=== PATIENT | female | born 1995 | race Caucasian/White ===

== ENCOUNTER → 2018-06-14 | Outpatient (REF) | payer BC ==
[2018-06-14 12:35] LABS: BASO # 0.1 10^3/uL (0.0-0.2); BASO % 0.8 % (0.0-1.0); EOS # 0.3 10^3/uL (0.0-0.50); EOS % 3.4 % (0.0-3.0); HEMOGLOBIN 14.3 g/dl (12.0-15.5); LYMPH # 2.2 10^3/uL (1.5-6.5); LYMPH % 29.2 % (24.0-44.0); MEAN CORPUSCULAR HEMOGLOBIN 30.5 pg (27.0-33.0); MEAN CORPUSCULAR VOLUME 89.6 fl (80.0-96.0); MONO # 0.5 10^3/uL (0.0-0.8); MONO % 5.9 % (0.0-5.0); NEUTROPHILS # 4.6 10^3/uL (1.8-7.7); NEUTROPHILS % 60.3 % (36.0-66.0); PLATELET COUNT, AUTOMATED 159 10^3/uL (150-450); RED BLOOD COUNT 4.69 10^6/uL (4.00-5.40); WHITE BLOOD COUNT 7.7 10^3/uL (4.0-10.0)
[2018-06-14 12:59] LABS: HEMOGLOBIN A1c 4.9 %
[2018-06-14 13:42] LABS: ALBUMIN 3.9 GM/DL (3.2-5.2); ALT/SGPT 72 U/L (12-78); BILIRUBIN,TOTAL 0.5 MG/DL (0.2-1.0); BLOOD UREA NITROGEN 12 MG/DL (7-18); CARBON DIOXIDE LEVEL 26 MEQ/L (21-32); CHLORIDE LEVEL 109 MEQ/L (98-107); CHOLESTEROL LEVEL 146 MG/DL (<200); CHOLESTEROL RISK RATIO 3.173 (<5); CREATININE FOR GFR 0.64 MG/DL (0.55-1.30); GLOMERULAR FILTRATION RATE > 60.0 (>60); GLUCOSE, FASTING 95 MG/DL (70-100); HDL CHOLESTEROL 46 MG/DL (>40); LDL CHOLESTEROL 87 MG/DL (<100); NON-HDL-C 100 MG/DL; POTASSIUM SERUM 4.1 MEQ/L (3.5-5.1); SODIUM LEVEL 141 MEQ/L (136-145); TOTAL 25(OH) VITAMIN D 16.4 NG/ML (30.0-100.0); TOTAL PROTEIN 7.3 GM/DL (6.4-8.2); TRIGLYCERIDES LEVEL 67 MG/DL (<150)
[2018-06-15 14:15] LABS: Lyme Disease IgG/IgM Antibodie <0.91 ISR (0.00-0.90); Lyme Disease IgM Ab Quantitati <0.80 index (0.00-0.79)
== END ==
LOC: M LAB REF 12:10
PROVIDERS: ATTEND Family Medicine
DX: R20.2 Paresthesia of skin (principal); G83.24 Monoplegia of upper limb affecting left nondominant side; F32.1 Major depressive disorder, single episode, moderate

== ENCOUNTER → 2018-07-16 | Outpatient (CLI) | payer MEDICARE, BC ==
--- NOTE | 2018-07-16 09:33 | REP ---
MR Brain without contrast HISTORY: Migraine headache COMPARISON : None Several punctate areas of increased signal intensity on T2-weighted images are present in the subcortical white matter of the frontal lobes. There is no intraparenchymal hemorrhage, infarct, mass or midline shift. The ventricular system is normal in appearance. There is no extra cerebral collection. Mucosal thickening is present in the maxillary sinuses. IMPRESSION: There are several punctate areas of increased signal intensity in the subcortical white matter of the frontal lobes. This is a nonspecific finding, however, can be seen in conditions such as migraine. Electronically Signed by Tommie Jones MD 07/16/2018 09:24 A
== END ==
LOC: M PLARAD 08:27
PROVIDERS: ATTEND Psychiatry & Neurology Neurology
DX: G43.009 Migraine without aura, not intractable, without status migrainosus (principal); R42 Dizziness and giddiness

== ENCOUNTER 2018-08-26 16:58 | Emergency (ER) | payer MEDICARE, MEDICAID ==
[~2018-08-26] VITALS: Ht 157.5 cm; Wt 181.8 kg
[2018-08-26] MEDS ORDERED: ONDANSETRON 4MG/2ML VIAL (J2405) IV ONE (17:30)
[2018-08-26 17:48] LABS: BASO % 0.4 % (0.0-1.0); EOS # 0.3 10^3/uL (0.0-0.50); HEMATOCRIT 38.7 % (36.0-47.0); HEMOGLOBIN 13.1 g/dl (12.0-15.5); LYMPH # 1.8 10^3/uL (1.5-6.5); LYMPH % 21.5 % (24.0-44.0); MEAN CORPUSCULAR HEMOGLOBIN 30.8 pg (27.0-33.0); MEAN CORPUSCULAR HGB CONC 33.9 g/dl (32.0-36.5); MEAN CORPUSCULAR VOLUME 91.1 fl (80.0-96.0); MONO # 0.5 10^3/uL (0.0-0.8); MONO % 5.3 % (0.0-5.0); NEUTROPHILS # 5.9 10^3/uL (1.8-7.7); NEUTROPHILS % 69.1 % (36.0-66.0); PLATELET COUNT, AUTOMATED 130 10^3/uL (150-450); RED BLOOD COUNT 4.25 10^6/uL (4.00-5.40); WHITE BLOOD COUNT 8.6 10^3/uL (4.0-10.0)
[2018-08-26 18:17] LABS: ALBUMIN 3.3 GM/DL (3.2-5.2); ALT/SGPT 46 U/L (12-78); BILIRUBIN,DIRECT 0.1 MG/DL (0.0-0.2); BILIRUBIN,TOTAL 0.4 MG/DL (0.2-1.0); BLOOD UREA NITROGEN 11 MG/DL (7-18); CALCIUM LEVEL 8.5 MG/DL (8.5-10.1); CARBON DIOXIDE LEVEL 27 MEQ/L (21-32); CHLORIDE LEVEL 107 MEQ/L (98-107); CREATININE FOR GFR 0.68 MG/DL (0.55-1.30); GLOMERULAR FILTRATION RATE > 60.0 (>60); GLUCOSE, FASTING 105 MG/DL (70-100); HCG, SERUM QUALITATIVE NEGATIVE (NEGATIVE); LIPASE 84 U/L (73-393); POTASSIUM SERUM 3.8 MEQ/L (3.5-5.1); SODIUM LEVEL 138 MEQ/L (136-145); TOTAL PROTEIN 6.4 GM/DL (6.4-8.2)
[2018-08-26] MEDS ORDERED: ISOVUE-370 76% 100ML VIAL (Q9967) As Ordered ONE (18:36)
--- NOTE | 2018-08-26 20:10 | REPVR ---
EXAM: CT Abdomen and Pelvis With Contrast EXAM DATE/TIME: 08/26/2018 6:45 PM CLINICAL HISTORY: 23 years old, female; Abdominal pain; Localized; Lower; Additional info: Bilat low abd pain TECHNIQUE: Imaging protocol: Axial computed tomography images of the abdomen and pelvis with intravenous contrast. Coronal and sagittal reformatted images were created and reviewed. Radiation optimization: All CT scans at this facility use at least one of these dose optimization techniques: automated exposure control; mA and/or kV adjustment per patient size (includes targeted exams where dose is matched to clinical indication); or iterative reconstruction. Contrast material: ISOVUE 370; Contrast volume: 100 ml; Contrast route: IV; COMPARISON: No relevant prior studies available. FINDINGS: ABDOMEN: Liver: There is diffuse fatty infiltration of the liver. No focal hepatic lesion. Gallbladder and bile ducts: Status post cholecystectomy. Bile ducts are not dilated. Pancreas: The pancreas is normal. Spleen: The spleen measures 16 cm in length which is enlarged. No focal splenic lesion is identified. Adrenals: The adrenal glands are normal. Kidneys and ureters: The kidneys are normal. No hydronephrosis. Stomach and bowel: No evidence of bowel obstruction. No bowel wall thickening. No diverticula. The Appendix: No evidence of appendicitis. PELVIS: Bladder: The bladder is normal with no evidence of calculi. Reproductive: The left ovary is enlarged measuring 7 cm in length. There is an area of ill-defined heterogeneous density.. ABDOMEN and PELVIS: Intraperitoneal space: Normal. No free air. No significant fluid collection. Bones/joints: No acute fracture. No dislocation. Soft tissues: There has been prior ventral hernia repair. There is a lower abdominal midline a recurrent ventral hernia. This contains fat and a fluid collection measuring up to 6 cm in maximal dimension. The a component of this fluid collection extends intraperitoneally alongside the ventral mesh on the right. There is no bowel within the hernia. Vasculature: Normal. No abdominal aortic aneurysm. Lymph nodes: Normal. No enlarged lymph nodes. IMPRESSION: 1. Status post ventral hernia repair with recurrent hernia containing fat and a 6 cm fluid collection. This could be a postoperative seroma. This needs clinical correlation for possibility of infection. 2. The left ovary is enlarged measuring up to 7 cm. There is an area of heterogeneous density. Recommend ultrasound for further evaluation of ovarian lesion. 3. Splenomegaly, 16 cm, of unknown etiology. No focal splenic lesion. Electronically signed by: Subhash Peter On 08/26/2018 20:09:45 PM
--- NOTE | 2018-08-26 21:06 | REPVR ---
EXAM: US Pelvis Complete, Transabdominal EXAM DATE/TIME: 08/26/2018 8:55 PM CLINICAL HISTORY: 23 years old, female; Pelvic pain; Additional info: Bilat low abd pain R/O torsion TECHNIQUE: Imaging protocol: Real-time transabdominal pelvic ultrasound with image documentation. Complete exam. COMPARISON: CT ABD/PEL W/IV CONTRAST ONLY 08/26/2018 6:38 PM FINDINGS: Uterus/cervix: The uterus measures 8.9 x 2.6 x 9 point centimeters. No myometrial mass identified. Endometrium is mildly thickened up to 14 mm. No focal lesions seen. Right adnexa: The right ovary measures 2.3 x 2.0 x 2.1 cm. No abnormality seen. Left adnexa: The left ovary measures 6.2 x 2.9 x 6.2 cm. It contains a complex cyst measuring 4.3 x 4.6 x 4.0 cm. No abnormal vascularity. Free fluid: Small amount of free fluid noted in the pelvic cul-de-sac. Bladder: Normal. Other findings: Examination limited by patient body habitus. IMPRESSION: 1. Complex left ovarian cyst measuring 4.3 x 2.6 x 4.7. Recommend followup in 6 weeks. 2. No evidence of ovarian torsion. 3. Small amount of free fluid in the pelvic cul-de-sac. Electronically signed by: Subhash Peter On 08/26/2018 21:06:06 PM
[2018-08-26 21:41] VITALS: BP 146/85
--- NOTE | 2018-08-30 15:23 | ED PDOC ---
Post-Departure Follow-Up dr baxter faxed formal report of pelvic us for fu Ping Harp MD August 30, 2018 15:23
--- NOTE | 2018-08-30 15:26 | ED PDOC ---
Post-Departure Follow-Up armida tomlinson and [facility] faxed formal report of ct abd/p for fu Ping Harp MD August 30, 2018 15:26
== END 2018-08-26 21:40 | disposition home or self-care (01) ==
LOC: M ED 16:58
DX: N83.292 Other ovarian cyst, left side (principal); K43.9 Ventral hernia without obstruction or gangrene; I10 Essential (primary) hypertension; E66.9 Obesity, unspecified; Z88.0 Allergy status to penicillin; Z88.8 Allergy status to other drugs, medicaments and biological substances; Z91.040 Latex allergy status; F17.210 Nicotine dependence, cigarettes, uncomplicated
CPT/HCPCS: 36415; 74177; 76830; 76856; 80048; 80076; 81001; 83690; 84703; 85025; 93976; 96374; 99284; J2405; Q9967

== ENCOUNTER → 2018-08-31 | Outpatient (REF) | payer MEDICARE, MEDICAID ==
[~2018-08-31] MED LIST: HYDR-3713; MIDOTAB PO; PERC5TAB12 PO; ZOFR4TAB16 PO
[2018-08-31 18:00] LABS: BASO % 0.6 % (0.0-1.0); EOS # 0.3 10^3/uL (0.0-0.50); HEMATOCRIT 40.7 % (36.0-47.0); HEMOGLOBIN 13.4 g/dl (12.0-15.5); LYMPH # 1.7 10^3/uL (1.5-6.5); LYMPH % 24.9 % (24.0-44.0); MEAN CORPUSCULAR HEMOGLOBIN 30.2 pg (27.0-33.0); MEAN CORPUSCULAR HGB CONC 32.9 g/dl (32.0-36.5); MEAN CORPUSCULAR VOLUME 91.7 fl (80.0-96.0); MONO # 0.5 10^3/uL (0.0-0.8); MONO % 6.5 % (0.0-5.0); NEUTROPHILS # 4.4 10^3/uL (1.8-7.7); NEUTROPHILS % 63.4 % (36.0-66.0); PLATELET COUNT, AUTOMATED 126 10^3/uL (150-450); RED BLOOD COUNT 4.44 10^6/uL (4.00-5.40)
[2018-08-31 18:11] LABS: ALBUMIN 3.8 GM/DL (3.2-5.2); ALT/SGPT 45 U/L (12-78); BILIRUBIN,TOTAL 0.4 MG/DL (0.2-1.0); BLOOD UREA NITROGEN 12 MG/DL (7-18); CALCIUM LEVEL 8.7 MG/DL (8.5-10.1); CARBON DIOXIDE LEVEL 26 MEQ/L (21-32); CHLORIDE LEVEL 108 MEQ/L (98-107); CREATININE FOR GFR 0.63 MG/DL (0.55-1.30); GLOMERULAR FILTRATION RATE > 60.0 (>60); GLUCOSE, FASTING 80 MG/DL (70-100); POTASSIUM SERUM 4.2 MEQ/L (3.5-5.1); RHEUMATOID FACTOR QUANT < 10.0 IU/ML (<15.0); SODIUM LEVEL 139 MEQ/L (136-145); TOTAL 25(OH) VITAMIN D 26.2 NG/ML (30.0-100.0); TOTAL PROTEIN 6.6 GM/DL (6.4-8.2)
[2018-08-31 19:14] LABS: ERYTHROCYTE SEDIMENTATION RATE 20 mm/hr (0-20)
[2018-09-02 14:27] LABS: ANTINUCLEAR ANTIBODIES DIRECT Negative (Negative)
== END ==
LOC: M LABNEURO 13:29
PROVIDERS: ATTEND Psychiatry & Neurology Neurology
DX: R51 Headache (principal)

== ENCOUNTER 2018-09-03 11:55 | Emergency (ER) | payer MEDICARE, MEDICAID ==
[~2018-09-03] VITALS: Ht 157.5 cm; Wt 181.3 kg
[2018-09-03] MEDS ORDERED: HYDR-3713 (12:00)
[2018-09-03] MEDS ORDERED: MIDOTAB PO (12:00)
[2018-09-03] MEDS ORDERED: NORCO, ANEXSIA 5/325MG TABLET (HYDROcodone/ACETAMINOPHEN) PO ONE (12:45)
[2018-09-03 13:17] LABS: BASO # 0.1 10^3/uL (0.0-0.2); BASO % 0.6 % (0.0-1.0); EOS # 0.3 10^3/uL (0.0-0.50); EOS % 4.3 % (0.0-3.0); HEMATOCRIT 44.2 % (36.0-47.0); HEMOGLOBIN 14.8 g/dl (12.0-15.5); LYMPH # 2.3 10^3/uL (1.5-6.5); LYMPH % 30.3 % (24.0-44.0); MEAN CORPUSCULAR HEMOGLOBIN 30.7 pg (27.0-33.0); MEAN CORPUSCULAR HGB CONC 33.5 g/dl (32.0-36.5); MEAN CORPUSCULAR VOLUME 91.7 fl (80.0-96.0); MONO # 0.5 10^3/uL (0.0-0.8); MONO % 6.3 % (0.0-5.0); NEUTROPHILS # 4.5 10^3/uL (1.8-7.7); PLATELET COUNT, AUTOMATED 152 10^3/uL (150-450); RED BLOOD COUNT 4.82 10^6/uL (4.00-5.40); WHITE BLOOD COUNT 7.7 10^3/uL (4.0-10.0)
[2018-09-03] MEDS ORDERED: PERC5TAB12 PO (14:00)
[2018-09-03 14:09] VITALS: BP 135/85
--- NOTE | 2018-09-03 14:53 | REP ---
REASON: Left sided pain, rule out torsion. COMPARISON EXAM: Obtained 08/26/2018 which showed a 4.7 cm sized complex left ovarian cyst and for a 6 week followup was recommended. Transvesical and transvaginal imaging was obtained. The uterus is unchanged in size, shape, and echo pattern. The endometrial echo complex is unchanged. The right ovary measures 3.6 x 1.7 x 2.3 cm and is within normal limits. Left ovary measures 3.0 x 2.5 x 3.0 cm and is within normal limits. The complex cystic left ovarian mass seen on the prior examination has resolved. The right ovarian RI is 0.54 and the left is 0.44. Urinary bladder measures 2 x 2 x 5 cm. IMPRESSION: 1. There is no evidence of torsion. 2. Complex cystic structures seen previously left adnexa has resolved. Electronically Signed by Marty Oneill DO 09/03/2018 03:04 P
== END 2018-09-03 14:16 | disposition home or self-care (01) ==
LOC: M ED 11:55
DX: N83.202 Unspecified ovarian cyst, left side (principal); Z98.51 Tubal ligation status; F17.210 Nicotine dependence, cigarettes, uncomplicated; Z88.6 Allergy status to analgesic agent; Z88.1 Allergy status to other antibiotic agents; Z91.040 Latex allergy status

== ENCOUNTER 2018-09-06 21:37 | Emergency (ER) | payer MEDICARE, MEDICAID ==
[~2018-09-06] VITALS: Ht 157.5 cm; Wt 183.6 kg
[~2018-09-06 21:37] MED LIST changes: -ZOFR4TAB16 PO
[2018-09-06] MEDS ORDERED: ZOFR4TAB16 PO (21:44)
[2018-09-06 22:22] LABS: BASO # 0.1 10^3/uL (0.0-0.2); BASO % 0.5 % (0.0-1.0); EOS # 0.3 10^3/uL (0.0-0.50); EOS % 3.3 % (0.0-3.0); HEMATOCRIT 41.8 % (36.0-47.0); HEMOGLOBIN 14.1 g/dl (12.0-15.5); LYMPH # 2.5 10^3/uL (1.5-6.5); LYMPH % 27.5 % (24.0-44.0); MEAN CORPUSCULAR HEMOGLOBIN 30.6 pg (27.0-33.0); MEAN CORPUSCULAR HGB CONC 33.7 g/dl (32.0-36.5); MEAN CORPUSCULAR VOLUME 90.7 fl (80.0-96.0); MONO # 0.5 10^3/uL (0.0-0.8); MONO % 5.6 % (0.0-5.0); NEUTROPHILS # 5.7 10^3/uL (1.8-7.7); NEUTROPHILS % 62.7 % (36.0-66.0); PLATELET COUNT, AUTOMATED 156 10^3/uL (150-450); RED BLOOD COUNT 4.61 10^6/uL (4.00-5.40); WHITE BLOOD COUNT 9.2 10^3/uL (4.0-10.0)
[2018-09-06 22:39] LABS: HCG, SERUM QUALITATIVE NEGATIVE (NEGATIVE)
[2018-09-06 22:47] LABS: ALBUMIN 3.7 GM/DL (3.2-5.2); ALT/SGPT 46 U/L (12-78); BILIRUBIN,DIRECT < 0.1 MG/DL (0.0-0.2); BILIRUBIN,TOTAL 0.3 MG/DL (0.2-1.0); BLOOD UREA NITROGEN 15 MG/DL (7-18); CALCIUM LEVEL 8.8 MG/DL (8.5-10.1); CARBON DIOXIDE LEVEL 28 MEQ/L (21-32); CHLORIDE LEVEL 108 MEQ/L (98-107); CREATININE FOR GFR 0.82 MG/DL (0.55-1.30); GLOMERULAR FILTRATION RATE > 60.0 (>60); GLUCOSE, FASTING 100 MG/DL (70-100); LIPASE 88 U/L (73-393); POTASSIUM SERUM 4.1 MEQ/L (3.5-5.1); SODIUM LEVEL 140 MEQ/L (136-145); TOTAL PROTEIN 6.9 GM/DL (6.4-8.2)
[2018-09-06] MEDS ORDERED: ISOVUE-370 76% 100ML VIAL (Q9967) As Ordered ONE (23:12)
[2018-09-06] MEDS ORDERED: NS 500 ML IV ONE (23:15)
[2018-09-06] MEDS ORDERED: MORPHINE 4 MG/ML 1ML VIAL/SYRINGE (J2270) IV ONE (23:15)
--- NOTE | 2018-09-07 00:08 | REPVR ---
EXAM: CT Abdomen and Pelvis With Contrast EXAM DATE/TIME: 09/06/2018 11:05 PM CLINICAL HISTORY: 23 years old, female; Abdominal pain; Localized; Left; Additional info: L sided pain TECHNIQUE: Imaging protocol: Axial computed tomography images of the abdomen and pelvis with intravenous contrast. Coronal and sagittal reformatted images were created and reviewed. Radiation optimization: All CT scans at this facility use at least one of these dose optimization techniques: automated exposure control; mA and/or kV adjustment per patient size (includes targeted exams where dose is matched to clinical indication); or iterative reconstruction. Contrast material: ISO; Contrast volume: 100 ml; Contrast route: AC; COMPARISON: CT ABD/PEL W/IV CONTRAST ONLY 08/26/2018 6:38 PM FINDINGS: ABDOMEN: Liver: There is a diffuse decrease in hepatic parenchymal density, consistent with fatty infiltration. Gallbladder and bile ducts: There has been a cholecystectomy. Pancreas: Normal. No ductal dilation. Spleen: There is mild splenomegaly with a maximum span of 16 centimeters. No focal abnormalities demonstrated. Adrenals: Normal. No mass. Kidneys and ureters: Normal. No hydronephrosis. Stomach and bowel: Normal. No obstruction. No mucosal thickening. Appendix: No evidence of appendicitis. PELVIS: Bladder: Unremarkable as visualized. Reproductive: Unremarkable as visualized. ABDOMEN and PELVIS: Intraperitoneal space: Normal. No free air. No significant fluid collection. Bones/joints: No acute fracture. No dislocation. Soft tissues: Umbilical hernia status post ventral abdominal wall hernia repair. Vasculature: Normal. No abdominal aortic aneurysm. Lymph nodes: Normal. No enlarged lymph nodes. IMPRESSION: 1. There is a diffuse decrease in hepatic parenchymal density, consistent with fatty infiltration. 2. There has been a cholecystectomy. 3. There is mild splenomegaly with a maximum span of 16 centimeters. No focal abnormalities demonstrated. 4. Umbilical hernia status post ventral abdominal wall hernia repair. Electronically signed by: Jerson Beal On 09/07/2018 00:07:53 AM
[2018-09-07 01:09] VITALS: BP 118/59
--- NOTE | 2018-09-07 21:06 | ED PDOC ---
Post-Departure Follow-Up dr tony baxter faxed formal report of ct abd/p for fu Ping Harp MD September 07, 2018 21:06
== END 2018-09-07 01:24 | disposition home or self-care (01) ==
LOC: M ED 21:37
DX: R10.32 Left lower quadrant pain (principal); K76.0 Fatty (change of) liver, not elsewhere classified; R16.1 Splenomegaly, not elsewhere classified; K42.9 Umbilical hernia without obstruction or gangrene; Z87.42 Personal history of other diseases of the female genital tract; E66.01 Morbid (severe) obesity due to excess calories; Z68.45 Body mass index [BMI] 70 or greater, adult; K59.00 Constipation, unspecified; F17.200 Nicotine dependence, unspecified, uncomplicated; Z88.6 Allergy status to analgesic agent; Z88.1 Allergy status to other antibiotic agents; Z91.040 Latex allergy status; Z79.899 Other long term (current) drug therapy
CPT/HCPCS: 74177; 80048; 80076; 81001; 83690; 84703; 85025; 96361; 96374; 99284; J2270; Q9967

== ENCOUNTER → 2018-09-16 | Outpatient (CLI) | payer MEDICARE, MEDICAID ==
[~2018-09-16] MED LIST changes: +ZOFR4TAB16 PO
== END ==
LOC: M SMT 14:24
PROVIDERS: ATTEND Obstetrics & Gynecology
DX: Z13.79 Encounter for other screening for genetic and chromosomal anomalies (principal)

== ENCOUNTER 2018-11-19 00:54 | Emergency (ER) | payer MEDICARE, MEDICAID ==
[~2018-11-19] VITALS: Ht 157.5 cm; Wt 177.3 kg
[2018-11-19] MEDS ORDERED: ESCI10TA2 (01:09)
[2018-11-19] MEDS ORDERED: TOBR0.3S OS (01:09)
[2018-11-19] MEDS ORDERED: ARIP1TAB6 (01:09)
--- NOTE | 2018-11-19 06:30 | ECGEPIP ---
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
[2018-11-19 06:33] LABS: BASO % 0.6 % (0.0-1.0); EOS # 0.2 10^3/uL (0.0-0.50); EOS % 3.4 % (0.0-3.0); HEMATOCRIT 40.7 % (36.0-47.0); HEMOGLOBIN 13.6 g/dl (12.0-15.5); MEAN CORPUSCULAR HEMOGLOBIN 30.8 pg (27.0-33.0); MEAN CORPUSCULAR HGB CONC 33.4 g/dl (32.0-36.5); MEAN CORPUSCULAR VOLUME 92.1 fl (80.0-96.0); MONO # 0.5 10^3/uL (0.0-0.8); NEUTROPHILS % 59.1 % (36.0-66.0); PLATELET COUNT, AUTOMATED 136 10^3/uL (150-450); RED BLOOD COUNT 4.42 10^6/uL (4.00-5.40); WHITE BLOOD COUNT 6.8 10^3/uL (4.0-10.0)
[2018-11-19] MEDS ORDERED: ACETAMINOPHEN 325 MG TAB PO ONE (06:45)
[2018-11-19 06:55] LABS: ALBUMIN 3.4 GM/DL (3.2-5.2); ALT/SGPT 55 U/L (12-78); BILIRUBIN,DIRECT < 0.1 MG/DL (0.0-0.2); BILIRUBIN,TOTAL 0.2 MG/DL (0.2-1.0); BLOOD UREA NITROGEN 10 MG/DL (7-18); CALCIUM LEVEL 8.8 MG/DL (8.5-10.1); CARBON DIOXIDE LEVEL 27 MEQ/L (21-32); CHLORIDE LEVEL 110 MEQ/L (98-107); CK-MB VALUE MASS < 1.0 NG/ML (<3.6); CPK CREATINE PHOSPHOKINASE 103 U/L (26-192); CREATININE FOR GFR 0.76 MG/DL (0.55-1.30); GLOMERULAR FILTRATION RATE > 60.0 (>60); GLUCOSE, FASTING 119 MG/DL (70-100); MB/CK RELATIVE INDEX 0.97 (< OR =4); POTASSIUM SERUM 4.1 MEQ/L (3.5-5.1); SODIUM LEVEL 143 MEQ/L (136-145); TOTAL PROTEIN 6.6 GM/DL (6.4-8.2); TROPONIN I < 0.02 NG/ML (< 0.10)
[2018-11-19 09:31] VITALS: BP 152/71
--- NOTE | 2018-11-19 09:53 | REP ---
PA and lateral chest: There are no comparisons. The lung figueroa are clear. The cardiac size is normal. The cirilo, mediastinum, and skeletal structures are unremarkable. Impression: Negative PA and lateral chest. Electronically Signed by Chirag Downs MD 11/19/2018 09:44 A
== END 2018-11-19 10:06 | disposition home or self-care (01) ==
LOC: M ED 00:54
DX: R52 Pain, unspecified (principal); R53.83 Other fatigue; Z79.899 Other long term (current) drug therapy; Z88.0 Allergy status to penicillin; Z88.6 Allergy status to analgesic agent; Z91.040 Latex allergy status

== ENCOUNTER → 2018-12-01 | Outpatient (CLI) | payer MEDICARE, MEDICAID ==
[~2018-12-01] MED LIST changes: +ARIP1TAB6; +ESCI10TA2; +TOBR0.3S OS
[2018-12-01 10:06] LABS: C REACTIVE PROTEIN QUANTITATIV 0.73 MG/DL (0.00-0.30); COMPLEMENT C3 159 MG/DL (90-180); RHEUMATOID FACTOR QUANT < 10.0 IU/ML (<15.0); URIC ACID 4.6 MG/DL (2.6-6.0)
[2018-12-01 10:51] LABS: MONO SCRN NEGATIVE (NEGATIVE)
[2018-12-07 00:06] LABS: ANTI DS-DNA AB <1:10 titer (.); ANTINUCLEAR ANTIBODIES DIRECT Negative (Negative); COMPLEMENT TOTAL (CH50) > 60 U/mL (42-999999); CYCLIC CITRULLINATED PEPTIDE 3 units (0-19); EBV AB TO NUCLEAR ANTIGEN 81.1 U/mL (0.0-17.9); EBV VIRAL CAPSID AG IgG >600.0 U/mL (0.0-17.9); EBV VIRAL CAPSID AG IgM <36.0 U/mL (0.0-35.9); RNP ANTIBODIES <0.2 AI (0.0-0.9); SJOGREN'S ANTI SS-A <0.2 AI (0.0-0.9); SJOGREN'S ANTI SS-B <0.2 AI (0.0-0.9); SMITH ANTIBODIES <0.2 AI (0.0-0.9)
== END ==
LOC: M LAB 08:55
PROVIDERS: ATTEND Family Medicine
DX: R53.81 Other malaise (principal); M25.50 Pain in unspecified joint

== ENCOUNTER → 2018-12-24 | Outpatient (CLI) | payer MEDICARE, MEDICAID ==
--- NOTE | 2018-12-30 07:55 | REP ---
MR angiography the brain without contrast: History: Dizziness and giddiness. Technique: 3-D [id number] MR angiography of the brain is acquired in the usual fashion and maximal intensity projection images were generated in rotational format about the vertical and horizontal axes. In addition, source axial T1-weighted images are viewed in cine mode. MR angiographic findings: The distal vertebral arteries are patent bilaterally, left dominant. Basilar artery is a little tortuous but widely patent. The posterior cerebral and superior cerebellar vessels are normal and symmetric. Right posterior cerebral takes a persistent origin which is a normal variant. The distal internal carotid arteries are unremarkable. Anterior and middle cerebral arteries appear intact. There is no visible torrez aneurysm or arteriovenous malformation. Impression: Unremarkable MR angiography the brain. Electronically Signed by To Rascon MD 12/30/2018 07:47 A
== END ==
LOC: M PLARAD 08:32
PROVIDERS: ATTEND Physician Assistant Medical
DX: R42 Dizziness and giddiness (principal)

== ENCOUNTER 2018-12-28 22:05 | Emergency (ER) | payer MEDICARE, MEDICAID ==
[~2018-12-28] VITALS: Ht 157.5 cm; Wt 181.2 kg
[2018-12-28 23:12] LABS: BASO % 0.5 % (0.0-1.0); EOS # 0.2 10^3/uL (0.0-0.5); EOS % 2.1 % (0.0-3.0); HEMATOCRIT 37.7 % (36.0-47.0); HEMOGLOBIN 12.9 g/dl (12.0-15.5); LYMPH % 26.9 % (24.0-44.0); MEAN CORPUSCULAR HEMOGLOBIN 30.1 pg (27.0-33.0); MEAN CORPUSCULAR HGB CONC 34.2 g/dl (32.0-36.5); MEAN CORPUSCULAR VOLUME 87.9 fl (80.0-96.0); MONO # 0.4 10^3/uL (0.0-0.8); MONO % 5.9 % (0.0-5.0); NEUTROPHILS # 4.8 10^3/uL (1.5-8.5); NEUTROPHILS % 64.1 % (36.0-66.0); PLATELET COUNT, AUTOMATED 132 10^3/uL (150-450); RED BLOOD COUNT 4.29 10^6/uL (4.00-5.40); WHITE BLOOD COUNT 7.5 10^3/uL (4.0-10.0)
[2018-12-28 23:51] LABS: ALBUMIN 3.3 GM/DL (3.2-5.2); ALT/SGPT 48 U/L (12-78); BILIRUBIN,DIRECT 0.1 MG/DL (0.0-0.2); BILIRUBIN,TOTAL 0.4 MG/DL (0.2-1.0); BLOOD UREA NITROGEN 15 MG/DL (7-18); CALCIUM LEVEL 8.9 MG/DL (8.5-10.1); CARBON DIOXIDE LEVEL 26 MEQ/L (21-32); CHLORIDE LEVEL 109 MEQ/L (98-107); CK-MB VALUE MASS 1.6 NG/ML (<3.6); CPK CREATINE PHOSPHOKINASE 136 U/L (26-192); CREATININE FOR GFR 0.71 MG/DL (0.55-1.30); GLOMERULAR FILTRATION RATE > 60.0 (>60); GLUCOSE, FASTING 92 MG/DL (70-100); LIPASE 84 U/L (73-393); MB/CK RELATIVE INDEX 1.18 (< OR =4); POTASSIUM SERUM 3.8 MEQ/L (3.5-5.1); SODIUM LEVEL 141 MEQ/L (136-145); TOTAL PROTEIN 6.2 GM/DL (6.4-8.2); TROPONIN I < 0.02 NG/ML (< 0.10)
[2018-12-29] MEDS ORDERED: NS 1,000 ML IV ONE
[2018-12-29 00:06] LABS: HCG, SERUM QUALITATIVE NEGATIVE (NEGATIVE)
[2018-12-29 01:54] VITALS: BP 134/76
--- NOTE | 2018-12-29 17:10 | ECGEPIP ---
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
== END 2018-12-29 01:56 | disposition home or self-care (01) ==
LOC: M ED 22:05
DX: R07.9 Chest pain, unspecified (principal); R20.0 Anesthesia of skin; M79.7 Fibromyalgia; F41.1 Generalized anxiety disorder; E66.8 Other obesity; Z79.899 Other long term (current) drug therapy; Z88.0 Allergy status to penicillin; Z88.8 Allergy status to other drugs, medicaments and biological substances; Z91.040 Latex allergy status; Z87.891 Personal history of nicotine dependence

== ENCOUNTER → 2019-05-20 | Outpatient (CLI) | payer MEDICARE, MEDICAID ==
--- NOTE | 2019-05-24 17:37 | SLEEPCENT ---
DATE OF PROCEDURE: 05/20/2019 ORDERED BY: MADISON Dixon Nocturnal polysomnography was performed for the titration of pressure therapy in this patient with obstructive sleep apnea syndrome, apnea-hypopnea index 104.2. For testing a RespirNERIWear full face mask of small size was used, 4 cm of water pressure were applied to the circuit and the lights were extinguished. 7 hours and 36 minutes of data were reviewed. There were 423.5 minutes of sleep identified. Sleep latency was short at 2 minutes. Rapid eye movement (REM) latency was delayed at 177 minutes. Sleep architecture was good with evidence of REM rebound. Overall sleep efficiency was 94.6%. The patient's electrocardiogram showed a sinus rhythm with an average heart rate of 56 beats per minute. EEG showed normal waveforms for awake and sleep. Respiratory events were fully palliated with continuous positive airway pressure (CPAP) at a pressure of +8 and remaining measures of sleep physiology were normal. IMPRESSION: Obstructive sleep apnea syndrome (G47.33). RECOMMENDATIONS: Nightly use of pressure therapy 8 cm of water.
== END ==
LOC: M SLEEP 19:22
PROVIDERS: ATTEND Nurse Practitioner Family
DX: G47.33 Obstructive sleep apnea (adult) (pediatric) (principal)

== ENCOUNTER 2019-05-29 13:40 | Emergency (ER) | payer MEDICARE, MEDICAID ==
[~2019-05-29] VITALS: Ht 154.9 cm; Wt 164.8 kg
[2019-05-29] MEDS ORDERED: PROMETHAZINE INJ 25 MG/ML VIAL (J2550) IV ONE (14:15)
[2019-05-29] MEDS ORDERED: NS 1,000 ML IV ONE ×2 (14:15)
[2019-05-29] MEDS ORDERED: ONDANSETRON 4MG/2ML VIAL (J2405) IV ONE (16:15)
[2019-05-29 16:54] VITALS: BP 129/74
== END 2019-05-29 17:04 | disposition home or self-care (01) ==
LOC: M ED 13:40
DX: R11.2 Nausea with vomiting, unspecified (principal); R19.7 Diarrhea, unspecified; F32.9 Major depressive disorder, single episode, unspecified; F41.9 Anxiety disorder, unspecified; Z88.1 Allergy status to other antibiotic agents; Z88.8 Allergy status to other drugs, medicaments and biological substances; Z91.040 Latex allergy status
CPT/HCPCS: 96360; 96374; 96375; 99284; J2405

== ENCOUNTER → 2019-06-14 | Outpatient (REF) | payer MEDICARE, MEDICAID ==
[2019-06-14 13:12] LABS: INFLUENZA A AMPLIFICATION NEGATIVE (NEGATIVE); INFLUENZA B AMPLIFICATION NEGATIVE (NEGATIVE)
== END ==
LOC: M LAB REF 12:08
PROVIDERS: ATTEND Physician Assistant
DX: J11.1 Influenza due to unidentified influenza virus with other respiratory manifestations (principal)

== ENCOUNTER 2019-08-27 09:03 | Emergency (ER) | payer MEDICARE, MEDICAID ==
[~2019-08-27] VITALS: Ht 154.9 cm; Wt 170.1 kg
[2019-08-27 09:48] LABS: BASO % 0.5 % (0.0-1.0); EOS # 0.1 10^3/uL (0.0-0.5); EOS % 1.7 % (0.0-3.0); HEMATOCRIT 39.5 % (36.0-47.0); HEMOGLOBIN 13.4 g/dl (12.0-15.5); LYMPH # 2.1 10^3/uL (1.5-5.0); LYMPH % 25.3 % (24.0-44.0); MEAN CORPUSCULAR HEMOGLOBIN 30.2 pg (27.0-33.0); MEAN CORPUSCULAR HGB CONC 33.9 g/dl (32.0-36.5); MONO # 0.5 10^3/uL (0.0-0.8); MONO % 5.7 % (0.0-5.0); NEUTROPHILS # 5.6 10^3/uL (1.5-8.5); NEUTROPHILS % 66.2 % (36.0-66.0); PLATELET COUNT, AUTOMATED 155 10^3/uL (150-450); RED BLOOD COUNT 4.44 10^6/uL (4.00-5.40); WHITE BLOOD COUNT 8.4 10^3/uL (4.0-10.0)
[2019-08-27] MEDS ORDERED: ACETAMINOPHEN 500 MG TAB PO ONE (10:00)
[2019-08-27] MEDS ORDERED: ONDANSETRON 4MG/2ML VIAL IV ONE (10:00)
[2019-08-27] MEDS ORDERED: MORPHINE 4 MG/ML 1ML VIAL/SYRINGE (J2270) IV ONE ×2 (10:15→13:00)
[2019-08-27] MEDS ORDERED: ISOVUE-370 76% 100ML VIAL As Ordered ONE (10:20)
[2019-08-27 10:21] LABS: ALBUMIN 3.7 GM/DL (3.2-5.2); BILIRUBIN,DIRECT 0.2 MG/DL (0.0-0.2); BILIRUBIN,TOTAL 0.5 MG/DL (0.2-1.0); TOTAL PROTEIN 6.7 GM/DL (6.4-8.2)
--- NOTE | 2019-08-27 11:03 | REP ---
Clinical: Periumbilical pain. Possible incarcerated hernia. Technique: Axial contrast enhanced images from the lung bases to the pubic symphysis using 100 ml Isovue 370 intravenous contrast material with coronal and sagittal re-formations. Comparison: 09/06/2018. Findings: Lung bases are clear. Visualized heart and pericardium normal. Mild hepatosplenomegaly and fatty infiltration to the liver is suggested without focal hepatic or splenic lesion. Pancreas, bilateral adrenal glands and kidneys are normal. Evidence of prior cholecystectomy. The enteric system is without obstruction or acute inflammatory process. Scattered colonic diverticula noted without acute diverticulitis. There is evidence for prior ventral hernia repair. There appears to be a small/moderate periumbilical hernia containing fat and fluid which measures approximately 4.5 cm diameter (images 114 - 141). Pelvis demonstrates collapsed bladder and normal uterus / adnexa. No pelvic fluid or ascites. No free air. No adenopathy. Abdominal aorta and vasculature without aneurysm or dissection. Musculoskeletal structures without acute osseous abnormality. Impression: 1. A 4.5 cm periumbilical hernia containing fat, fluid and mild stranding is again identified and essentially unchanged when compared to 09/06/2018. 2. Evidence for prior ventral hernia repair. 3. Mild hepatosplenomegaly and fatty infiltration to the liver is suggested without focal hepatic or splenic lesion. Electronically Signed by Lester Anderson MD 08/27/2019 10:55 A
[2019-08-27 15:40] VITALS: BP 147/67
== END 2019-08-27 15:43 | disposition short-term general hospital (02) ==
LOC: M ED 09:03
DX: K42.0 Umbilical hernia with obstruction, without gangrene (principal); Z91.040 Latex allergy status; Z88.1 Allergy status to other antibiotic agents; Z88.8 Allergy status to other drugs, medicaments and biological substances; Z87.891 Personal history of nicotine dependence
CPT/HCPCS: 74177; 80047; 80076; 81001; 83690; 84702; 85025; 96374; 96375; 96376; 99284; J2270; J2405; Q9967

== ENCOUNTER 2019-10-13 22:22 | Emergency (ER) | payer MEDICARE, MEDICAID ==
[~2019-10-13] VITALS: Ht 154.9 cm; Wt 170.8 kg
[2019-10-13 22:23] VITALS: BP 176/96
[2019-10-13] MEDS ORDERED: CYCL-707 PO (22:29)
[2019-10-13] MEDS ORDERED: CELE1CAP7 PO (22:29)
[2019-10-14] MEDS ORDERED: methocarbamoL 750 MG TAB PO ONE (00:30)
[2019-10-14] MEDS ORDERED: traMADol 50 MG TAB PO ONE (00:30)
--- NOTE | 2019-10-14 00:51 | REPVR ---
PROCEDURE INFORMATION: Exam: US Duplex Right Lower Extremity Veins, Limited Exam date and time: 10/14/2019 12:48 AM Age: 24 years old Clinical indication: Pain; Leg, lower; Right; Additional info: Tender, PT states feels swollen TECHNIQUE: Imaging protocol: Real-time Duplex ultrasound of the Right Lower Extremity with 2-D ricks scale, color Doppler flow and spectral waveform analysis with image documentation. Limited exam was focused on the right lower extremity veins. COMPARISON: No relevant prior studies available. FINDINGS: Right deep veins: Unremarkable. The common femoral, femoral, proximal profunda femoral and popliteal veins are patent without thrombus. Normal Doppler waveforms. Normal compressibility and/or augmentation response. Right superficial veins: Unremarkable. Saphenofemoral junction is patent without thrombus. Soft tissues: Unremarkable. IMPRESSION: No evidence of deep vein thrombosis. Electronically signed by: Darlene Hui On 10/14/2019 00:51:14 AM
[2019-10-14 01:30] LABS: BASO % 0.5 % (0.0-1.0); EOS # 0.2 10^3/uL (0.0-0.5); EOS % 2.8 % (0.0-3.0); HEMATOCRIT 38.3 % (36.0-47.0); HEMOGLOBIN 12.8 g/dl (12.0-15.5); LYMPH # 2.4 10^3/uL (1.5-5.0); LYMPH % 36.5 % (24.0-44.0); MEAN CORPUSCULAR HEMOGLOBIN 30.1 pg (27.0-33.0); MEAN CORPUSCULAR HGB CONC 33.4 g/dl (32.0-36.5); MEAN CORPUSCULAR VOLUME 90.1 fl (80.0-96.0); MONO # 0.5 10^3/uL (0.0-0.8); MONO % 7.6 % (0.0-5.0); NEUTROPHILS # 3.4 10^3/uL (1.5-8.5); NEUTROPHILS % 52.1 % (36.0-66.0); PLATELET COUNT, AUTOMATED 150 10^3/uL (150-450); RED BLOOD COUNT 4.25 10^6/uL (4.00-5.40); WHITE BLOOD COUNT 6.5 10^3/uL (4.0-10.0)
[2019-10-14 01:51] LABS: BLOOD UREA NITROGEN 11 MG/DL (7-18); CALCIUM LEVEL 8.3 MG/DL (8.5-10.1); CARBON DIOXIDE LEVEL 25 MEQ/L (21-32); CHLORIDE LEVEL 111 MEQ/L (98-107); CPK CREATINE PHOSPHOKINASE 182 U/L (26-192); CREATININE FOR GFR 0.62 MG/DL (0.55-1.30); GLOMERULAR FILTRATION RATE > 60.0 (>60); GLUCOSE, FASTING 104 MG/DL (70-100); POTASSIUM SERUM 3.8 MEQ/L (3.5-5.1); SODIUM LEVEL 141 MEQ/L (136-145)
[2019-10-14] MEDS ORDERED: TRAM50TA2 PO (02:08)
[2019-10-14] MEDS ORDERED: ROBA750T4 PO (02:08)
== END 2019-10-14 02:37 | disposition home or self-care (01) ==
LOC: M ED 22:22
DX: M79.7 Fibromyalgia (principal); I83.91 Asymptomatic varicose veins of right lower extremity; I10 Essential (primary) hypertension; Z88.0 Allergy status to penicillin; Z88.8 Allergy status to other drugs, medicaments and biological substances; Z91.040 Latex allergy status

== ENCOUNTER → 2019-10-19 | Outpatient (REF) | payer MEDICARE, MEDICAID ==
[~2019-10-19] MED LIST changes: +CELE1CAP7 PO; +CYCL-707 PO; +ROBA750T4 PO; +TRAM50TA2 PO
[2019-10-19 19:09] LABS: APPEARANCE, URINE CLOUDY (CLEAR); BACTERIA, URINE AUTO NEGATIVE (NEGATIVE); BILIRUBIN, URINE AUTO NEGATIVE (NEGATIVE); BLOOD, URINE BLOOD NEGATIVE (NEGATIVE); COLOR, URINE YELLOW (YELLOW); GLUCOSE, URINE (UA) AUTO NEGATIVE (NEGATIVE); KETONE, URINE AUTO NEGATIVE (NEGATIVE); LEUKOCYTE ESTERASE, URINE AUTO 1+ (NEGATIVE); NITRITE, URINE AUTO NEGATIVE (NEGATIVE); PROTEIN, URINE AUTO 1+ mg/dL (NEGATIVE); RBC, URINE AUTO 2 /HPF (0-3); SQUAMOUS EPITHELIAL CELL UR AU 9 /HPF (0-6); UROBILINOGEN, URINE AUTO 0.2 mg/dL (0.0-2.0); WBC, URINE AUTO 9 /HPF (0-3)
== END ==
LOC: M LAB REF 17:03
PROVIDERS: ATTEND Nurse Practitioner Family
DX: N39.0 Urinary tract infection, site not specified (principal); R30.0 Dysuria

== ENCOUNTER → 2019-10-28 | Outpatient (CLI) | payer MEDICARE, MEDICAID ==
[2019-10-28 10:33] LABS: BASO % 0.5 % (0.0-1.0); EOS # 0.2 10^3/uL (0.0-0.5); EOS % 2.4 % (0.0-3.0); HEMATOCRIT 41.2 % (36.0-47.0); HEMOGLOBIN 13.9 g/dl (12.0-15.5); LYMPH # 2.1 10^3/uL (1.5-5.0); LYMPH % 32.7 % (24.0-44.0); MEAN CORPUSCULAR HEMOGLOBIN 30.2 pg (27.0-33.0); MEAN CORPUSCULAR HGB CONC 33.7 g/dl (32.0-36.5); MEAN CORPUSCULAR VOLUME 89.4 fl (80.0-96.0); MONO # 0.4 10^3/uL (0.0-0.8); MONO % 6.2 % (0.0-5.0); NEUTROPHILS # 3.7 10^3/uL (1.5-8.5); NEUTROPHILS % 57.9 % (36.0-66.0); PLATELET COUNT, AUTOMATED 160 10^3/uL (150-450); RED BLOOD COUNT 4.61 10^6/uL (4.00-5.40); WHITE BLOOD COUNT 6.3 10^3/uL (4.0-10.0)
[2019-10-28 10:35] LABS: APPEARANCE, URINE HAZY (CLEAR); BACTERIA, URINE AUTO NEGATIVE (NEGATIVE); BILIRUBIN, URINE AUTO NEGATIVE (NEGATIVE); BLOOD, URINE BLOOD NEGATIVE (NEGATIVE); COLOR, URINE YELLOW (YELLOW); GLUCOSE, URINE (UA) AUTO NEGATIVE (NEGATIVE); KETONE, URINE AUTO NEGATIVE (NEGATIVE); LEUKOCYTE ESTERASE, URINE AUTO NEGATIVE (NEGATIVE); MUCUS, URINE SMALL (NEGATIVE); NITRITE, URINE AUTO NEGATIVE (NEGATIVE); PROTEIN, URINE AUTO NEGATIVE (NEGATIVE); RBC, URINE AUTO 1 /HPF (0-3); SQUAMOUS EPITHELIAL CELL UR AU 1 /HPF (0-6); UROBILINOGEN, URINE AUTO 0.2 mg/dL (0.0-2.0); WBC, URINE AUTO 0 /HPF (0-3)
[2019-10-28 11:06] LABS: ALBUMIN 3.6 GM/DL (3.2-5.2); ALT/SGPT 37 U/L (12-78); BILIRUBIN,TOTAL 0.5 MG/DL (0.2-1.0); BLOOD UREA NITROGEN 11 MG/DL (7-18); CALCIUM LEVEL 8.7 MG/DL (8.5-10.1); CARBON DIOXIDE LEVEL 24 MEQ/L (21-32); CHLORIDE LEVEL 112 MEQ/L (98-107); CHOLESTEROL LEVEL 140 MG/DL (<200); CHOLESTEROL RISK RATIO 2.258 (<5); CREATININE FOR GFR 0.64 MG/DL (0.55-1.30); FREE T4 1.16 NG/DL (0.76-1.46); GLOMERULAR FILTRATION RATE > 60.0 (>60); GLUCOSE, FASTING 90 MG/DL (70-100); HDL CHOLESTEROL 62 MG/DL (>40); LDL CHOLESTEROL 70 MG/DL (<100); NON-HDL-C 78 MG/DL; POTASSIUM SERUM 4.2 MEQ/L (3.5-5.1); SODIUM LEVEL 144 MEQ/L (136-145); THYROID STIMULATING HORMONE 0.644 uIU/ML (0.358-3.740); TOTAL PROTEIN 6.8 GM/DL (6.4-8.2); TRIGLYCERIDES LEVEL 38 MG/DL (<150)
[2019-10-28 11:18] LABS: HEMOGLOBIN A1c 4.5 %
--- NOTE | 2019-10-28 16:52 | ECGEPIP ---
[facility] Test Date: 2019-10-28 Pat Name: MIR MARMOLEJO Department: Room: - Gender: Female Mortarman: : 1995 Requested By: Lucy WALLACE Order Number: [id number] Reading MD: Hector Kuo Measurements Intervals [place] Rate: 63 P: 15 MN: 164 QRS: 32 QRSD: 94 T: 24 QT: 416 QTc: 428 Interpretive Statements SINUS RHYTHM Compared to prior (2) tracings in the system, no significant changes Electronically Signed on 10-28-2019 16:52:24 EDT by Hector Kuo
== END ==
LOC: M LAB 09:57
PROVIDERS: ATTEND Nurse Practitioner Family
DX: I10 Essential (primary) hypertension (principal); R60.0 Localized edema; R00.0 Tachycardia, unspecified; E66.01 Morbid (severe) obesity due to excess calories; E55.9 Vitamin D deficiency, unspecified; Z13.9 Encounter for screening, unspecified; F32.1 Major depressive disorder, single episode, moderate; Z79.899 Other long term (current) drug therapy

== ENCOUNTER → 2019-12-02 | Outpatient (CLI) | payer MEDICARE, MEDICAID ==
[2020-01-23 11:49] LABS: HEMATOCRIT 39.4 % (36.0-47.0)
[2020-01-26 15:53] LABS: BASO % 0.5 % (0.0-1.0); EOS # 0.3 10^3/uL (0.0-0.5); EOS % 7.1 % (0.0-3.0); HEMATOCRIT 39.4 % (36.0-47.0); LYMPH # 1.5 10^3/uL (1.5-5.0); MEAN CORPUSCULAR HEMOGLOBIN 30.7 pg (27.0-33.0); MEAN CORPUSCULAR VOLUME 92.9 fl (80.0-96.0); MONO # 0.3 10^3/uL (0.0-0.8); MONO % 6.8 % (0.0-5.0); NEUTROPHILS # 1.6 10^3/uL (1.5-8.5); NEUTROPHILS % 44.3 % (36.0-66.0); RED BLOOD COUNT 4.24 10^6/uL (4.00-5.40); WHITE BLOOD COUNT 3.7 10^3/uL (4.0-10.0)
[2020-01-26 15:54] LABS: PLATELET COUNT, AUTOMATED 91 10^3/uL (150-450)
[2020-01-28 11:52] LABS: ALBUMIN 3.1 GM/DL (3.2-5.2); ALT/SGPT 71 U/L (12-78); BILIRUBIN,TOTAL 0.4 MG/DL (0.2-1.0); BLOOD UREA NITROGEN 8 MG/DL (7-18); CALCIUM LEVEL 8.3 MG/DL (8.5-10.1); CARBON DIOXIDE LEVEL 29 MEQ/L (21-32); CHLORIDE LEVEL 113 MEQ/L (98-107); FERRITIN 82 NG/ML (8-252); GLOMERULAR FILTRATION RATE > 60.0 (>60); GLUCOSE, FASTING 85 MG/DL (70-100); IRON (FE) 114 UG/DL (50-170); MAGNESIUM LEVEL 2.3 MG/DL (1.8-2.4); PHOSPHORUS LEVEL 4.1 MG/DL (2.5-4.9); POTASSIUM SERUM 3.8 MEQ/L (3.5-5.1); SODIUM LEVEL 144 MEQ/L (136-145); TOTAL PROTEIN 5.6 GM/DL (6.4-8.2); VITAMIN B12 LEVEL 1297 PG/ML (247-911)
== END ==
LOC: M LAB 09:56
PROVIDERS: ATTEND Surgery
DX: K91.2 Postsurgical malabsorption, not elsewhere classified (principal); E55.9 Vitamin D deficiency, unspecified; Z98.84 Bariatric surgery status

== ENCOUNTER → 2019-12-03 | Emergency (ER) | payer MEDICARE, MEDICAID ==
[~2019-12-03] MED LIST changes: +ACETAMINOPHEN 500 MG TAB As Ordered ONE; +GASTROGRAFIN SOLUTION 30ML (Q9963) As Ordered ONE; +ISOVUE-370 76% 100ML VIAL As Ordered ONE; +ONDANSETRON 4MG/2ML VIAL As Ordered ONE; +PANTOPRAZOLE 40MG VIAL (C9113 PER 1) As Ordered ONE
--- NOTE | 2020-01-06 17:17 | ECGEPIP ---
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
[2020-01-19 11:32] LABS: INR 1.11; PARTIAL THROMBOPLASTIN TIME 28.2 SECONDS (24.2-38.5); PROTHROMBIN TIME 14.6 SECONDS (12.5-14.3)
[2020-01-19 17:18] LABS: BASO # 0.1 10^3/uL (0.0-0.2); EOS # 0.2 10^3/uL (0.0-0.5); EOS % 3.8 % (0.0-3.0); HEMATOCRIT 39.4 % (36.0-47.0); LYMPH # 1.8 10^3/uL (1.5-5.0); LYMPH % 35.7 % (24.0-44.0); MEAN CORPUSCULAR HEMOGLOBIN 30.4 pg (27.0-33.0); MEAN CORPUSCULAR VOLUME 92.1 fl (80.0-96.0); MONO # 0.4 10^3/uL (0.0-0.8); NEUTROPHILS # 2.5 10^3/uL (1.5-8.5); NEUTROPHILS % 51.1 % (36.0-66.0); PLATELET COUNT, AUTOMATED 100 10^3/uL (150-450); RED BLOOD COUNT 4.28 10^6/uL (4.00-5.40)
[2020-02-21 20:15] LABS: HCG, SERUM QUALITATIVE NEGATIVE (NEGATIVE)
[2020-02-21 20:27] LABS: ALBUMIN 3.4 GM/DL (3.2-5.2); ALT/SGPT 74 U/L (12-78); BILIRUBIN,DIRECT 0.1 MG/DL (0.0-0.2); BILIRUBIN,TOTAL 0.4 MG/DL (0.2-1.0); BLOOD UREA NITROGEN 9 MG/DL (7-18); CALCIUM LEVEL 8.5 MG/DL (8.5-10.1); CARBON DIOXIDE LEVEL 28 MEQ/L (21-32); CHLORIDE LEVEL 112 MEQ/L (98-107); CK-MB VALUE MASS < 1.0 NG/ML (<3.6); CPK CREATINE PHOSPHOKINASE 95 U/L (26-192); GLOMERULAR FILTRATION RATE > 60.0 (>60); GLUCOSE, FASTING 83 MG/DL (70-100); LIPASE 116 U/L (73-393); MB/CK RELATIVE INDEX 1.05 (< OR =4); POTASSIUM SERUM 3.9 MEQ/L (3.5-5.1); SODIUM LEVEL 144 MEQ/L (136-145); TOTAL PROTEIN 6.1 GM/DL (6.4-8.2); TROPONIN I < 0.02 NG/ML (< 0.10)
== END | disposition home or self-care (01) ==
LOC: M ED 15:40
DX: R10.12 Left upper quadrant pain (principal); R11.2 Nausea with vomiting, unspecified; R07.9 Chest pain, unspecified; J45.909 Unspecified asthma, uncomplicated; K21.9 Gastro-esophageal reflux disease without esophagitis; M79.7 Fibromyalgia; E66.01 Morbid (severe) obesity due to excess calories; E16.2 Hypoglycemia, unspecified; R16.1 Splenomegaly, not elsewhere classified; K42.9 Umbilical hernia without obstruction or gangrene; F33.9 Major depressive disorder, recurrent, unspecified; F41.9 Anxiety disorder, unspecified; Z98.84 Bariatric surgery status; Z88.1 Allergy status to other antibiotic agents; Z79.899 Other long term (current) drug therapy; Z91.040 Latex allergy status
CPT/HCPCS: 71046; 74177; 80048; 80076; 82550; 82553; 83690; 84484; 84703; 85025; 85610; 85730; 87040; 93005; 96374; 96375; 99284; C9113; J2405; Q9963; Q9967

== ENCOUNTER → 2020-01-12 | Outpatient (REF) | payer MEDICARE, MEDICAID ==
[~2020-01-12] MED LIST changes: -ACETAMINOPHEN 500 MG TAB As Ordered ONE; -GASTROGRAFIN SOLUTION 30ML (Q9963) As Ordered ONE; -ISOVUE-370 76% 100ML VIAL As Ordered ONE; -ONDANSETRON 4MG/2ML VIAL As Ordered ONE; -PANTOPRAZOLE 40MG VIAL (C9113 PER 1) As Ordered ONE
[2020-01-12 18:15] LABS: BASO % 0.6 % (0.0-1.0); EOS # 0.3 10^3/uL (0.0-0.5); HEMATOCRIT 40.5 % (36.0-47.0); HEMOGLOBIN 13.7 g/dl (12.0-15.5); LYMPH # 1.9 10^3/uL (1.5-5.0); LYMPH % 30.9 % (24.0-44.0); MEAN CORPUSCULAR HEMOGLOBIN 30.2 pg (27.0-33.0); MEAN CORPUSCULAR HGB CONC 33.8 g/dl (32.0-36.5); MEAN CORPUSCULAR VOLUME 89.2 fl (80.0-96.0); MONO # 0.4 10^3/uL (0.0-0.8); MONO % 6.3 % (0.0-5.0); NEUTROPHILS # 3.6 10^3/uL (1.5-8.5); NEUTROPHILS % 57.9 % (36.0-66.0); PLATELET COUNT, AUTOMATED 133 10^3/uL (150-450); RED BLOOD COUNT 4.54 10^6/uL (4.00-5.40); WHITE BLOOD COUNT 6.2 10^3/uL (4.0-10.0)
[2020-01-12 18:25] LABS: ALBUMIN 3.7 GM/DL (3.2-5.2); ALT/SGPT 45 U/L (12-78); BILIRUBIN,TOTAL 0.4 MG/DL (0.2-1.0); BLOOD UREA NITROGEN 7 MG/DL (7-18); CALCIUM LEVEL 8.7 MG/DL (8.5-10.1); CARBON DIOXIDE LEVEL 26 MEQ/L (21-32); CHLORIDE LEVEL 112 MEQ/L (98-107); CREATININE FOR GFR 0.55 MG/DL (0.55-1.30); FREE T4 1.17 NG/DL (0.76-1.46); GLOMERULAR FILTRATION RATE > 60.0 (>60); GLUCOSE, FASTING 85 MG/DL (70-100); POTASSIUM SERUM 3.4 MEQ/L (3.5-5.1); SODIUM LEVEL 142 MEQ/L (136-145); TOTAL PROTEIN 6.6 GM/DL (6.4-8.2)
== END ==
LOC: M LAB REF 16:44
PROVIDERS: ATTEND Nurse Practitioner Family
DX: N92.0 Excessive and frequent menstruation with regular cycle (principal); M79.7 Fibromyalgia; I10 Essential (primary) hypertension; Z13.9 Encounter for screening, unspecified

== ENCOUNTER 2020-03-19 01:08 | Emergency (ER) | payer MEDICARE, MEDICAID ==
[~2020-03-19] VITALS: Ht 157.5 cm; Wt 128.8 kg
[2020-03-19] MEDS ORDERED: MORPHINE 4 MG/ML 1ML VIAL/SYRINGE (J2270) IV PRN (02:30)
[2020-03-19] MEDS ORDERED: ONDANSETRON 4MG/2ML VIAL IV ONE (02:30)
[2020-03-19] MEDS ORDERED: NS 1,000 ML IV ONE (02:30)
[2020-03-19] MEDS ORDERED: METAL LOCK LOOP XX ONE (02:44)
[2020-03-19 02:50] LABS: BASO % 0.4 % (0.0-1.0); EOS # 0.1 10^3/uL (0.0-0.5); EOS % 1.5 % (0.0-3.0); HEMATOCRIT 36.2 % (36.0-47.0); HEMOGLOBIN 12.1 g/dl (12.0-15.5); LYMPH # 2.3 10^3/uL (1.5-5.0); LYMPH % 31.1 % (24.0-44.0); MEAN CORPUSCULAR HEMOGLOBIN 29.6 pg (27.0-33.0); MEAN CORPUSCULAR HGB CONC 33.4 g/dl (32.0-36.5); MEAN CORPUSCULAR VOLUME 88.5 fl (80.0-96.0); MONO # 0.5 10^3/uL (0.0-0.8); MONO % 6.5 % (0.0-5.0); NEUTROPHILS # 4.5 10^3/uL (1.5-8.5); NEUTROPHILS % 60.4 % (36.0-66.0); PLATELET COUNT, AUTOMATED 138 10^3/uL (150-450); RED BLOOD COUNT 4.09 10^6/uL (4.00-5.40); WHITE BLOOD COUNT 7.4 10^3/uL (4.0-10.0)
[2020-03-19] MEDS: GASTROGRAFIN SOLUTION 30ML PO SCH ×2 (03:08→04:02)
[2020-03-19 03:16] LABS: ALBUMIN 3.6 GM/DL (3.2-5.2); ALT/SGPT 24 U/L (12-78); BILIRUBIN,DIRECT 0.1 MG/DL (0.0-0.2); BILIRUBIN,TOTAL 0.5 MG/DL (0.2-1.0); BLOOD UREA NITROGEN 13 MG/DL (7-18); CALCIUM LEVEL 8.8 MG/DL (8.5-10.1); CARBON DIOXIDE LEVEL 24 MEQ/L (21-32); CHLORIDE LEVEL 109 MEQ/L (98-107); CREATININE FOR GFR 0.54 MG/DL (0.55-1.30); GLOMERULAR FILTRATION RATE > 60.0 (>60); GLUCOSE, FASTING 81 MG/DL (70-100); LIPASE 56 U/L (73-393); POTASSIUM SERUM 4.1 MEQ/L (3.5-5.1); SODIUM LEVEL 141 MEQ/L (136-145); TOTAL PROTEIN 6.2 GM/DL (6.4-8.2)
[2020-03-19 04:27] LABS: CHLAMYDIA DNA AMPLIFICATION NEGATIVE (NEGATIVE); GC DNA AMPLIFICATION NEGATIVE (NEGATIVE)
[2020-03-19] MEDS ORDERED: ISOVUE-370 76% 100ML VIAL As Ordered ONE (04:46)
--- NOTE | 2020-03-19 05:25 | REPVR ---
PROCEDURE INFORMATION: Exam: CT Abdomen And Pelvis With Contrast Exam date and time: 03/19/2020 4:51 AM Age: 24 years old Clinical indication: Abdominal pain; Additional info: Lower abd pain, gastric bypass TECHNIQUE: Imaging protocol: Computed tomography of the abdomen and pelvis with intravenous contrast. Radiation optimization: All CT scans at this facility use at least one of these dose optimization techniques: automated exposure control; mA and/or kV adjustment per patient size (includes targeted exams where dose is matched to clinical indication); or iterative reconstruction. Contrast material: ISO 370; Contrast volume: 100 ml; Contrast route: INTRAVENOUS (IV); COMPARISON: CT ABD/PEL W/IV ORAL CONTRAS 12/03/2019 6:21 PM FINDINGS: Liver: Normal. No mass. Gallbladder and bile ducts: Status post cholecystectomy. No biliary ductal dilatation. Pancreas: Normal. No ductal dilation. Spleen: Moderate splenomegaly. Adrenal glands: Normal. No mass. Kidneys and ureters: Normal. No hydronephrosis. Stomach and bowel: Status post gastric bypass surgery. Moderate stool in the colon. No abnormal bowel dilatation. No abnormal bowel wall thickening. Negative for colonic diverticulitis. Appendix: Appendix is normal. Intraperitoneal space: No free air. Small free fluid in the pelvis. Mild haziness of the intraperitoneal fat anterior to the left colon Vasculature: Unremarkable. No abdominal aortic aneurysm. Lymph nodes: Unremarkable. No enlarged lymph nodes. Urinary bladder: Unremarkable as visualized. Reproductive: Uterus is normal. Bones/joints: Unremarkable. No acute fracture. Soft tissues: Moderate umbilical hernia containing fluid. Status post ventral abdominal hernia repair with mesh. There is dependent subcutaneous edema. IMPRESSION: 1. No evidence of bowel obstruction. 2. Status post gastric bypass surgery. 3. Mild haziness of the intraperitoneal fat anterior to the left colon. Unknown significance. 4. Moderate umbilical hernia containing fluid. No change from prior. 5. Moderate splenomegaly. No change from prior. 6. Additional findings as described. Electronically signed by: Bertha Coto On 03/19/2020 05:25:28 AM
[2020-03-19] MEDS ORDERED: OXYCODONE/APAP 5MG/325MG(BULK FOR ED) 1 TABLET PO ONE (05:45)
[2020-03-19 05:55] VITALS: BP 120/64
--- NOTE | 2020-03-19 15:27 | ED PDOC ---
Post-Departure Follow-Up bryce rocha faxed formal report of ct abd/p for fu winnieg Ping Martinez MD Mar 19, 2020 15:27
== END 2020-03-19 05:58 | disposition home or self-care (01) ==
LOC: M ED 01:08
DX: R10.9 Unspecified abdominal pain (principal); R11.0 Nausea; Z98.84 Bariatric surgery status; Z88.0 Allergy status to penicillin; Z88.8 Allergy status to other drugs, medicaments and biological substances; Z91.040 Latex allergy status
CPT/HCPCS: 74177; 80047; 80048; 80076; 81001; 83605; 83690; 85025; 87661; 93041; 96361; 96374; 96375; 99284; J2270; J2405; Q9963; Q9967

== ENCOUNTER 2020-04-11 14:26 | Inpatient (IN) | payer MEDICARE, MEDICAID ==
[~2020-04-11] VITALS: Ht 157.5 cm; Wt 122.4 kg
[2020-04-11] MEDS ORDERED: THERTAB52 PO (14:35)
[2020-04-11] MEDS ORDERED: CALC500C16 PO (14:35)
[2020-04-11] MEDS ORDERED: BIOT1CAP2 PO (14:35)
[2020-04-11] MEDS ORDERED: D31000TA2 PO (14:35)
[2020-04-11 15:32] LABS: MEAN CORPUSCULAR HEMOGLOBIN 29.4 pg (27.0-33.0); MEAN CORPUSCULAR HGB CONC 32.5 g/dl (32.0-36.5); MEAN CORPUSCULAR VOLUME 90.5 fl (80.0-96.0); PLATELET COUNT, AUTOMATED 145 10^3/uL (150-450); RED BLOOD COUNT 4.42 10^6/uL (4.00-5.40); WHITE BLOOD COUNT 6.9 10^3/uL (4.0-10.0)
[2020-04-11 15:53] LABS: AMPHETAMINES LEVEL URINE NEGATIVE (NEGATIVE); BARBITURATES URINE NEGATIVE (NEGATIVE); BENZODIAZEPINES URINE NEGATIVE (NEGATIVE); CANNABINOIDS URINE POSITIVE (NEGATIVE); COCAINE METABOLITE URINE NEGATIVE (NEGATIVE); METHADONE URINE NEGATIVE (NEGATIVE); OPIATES URINE NEGATIVE (NEGATIVE); PHENCYCLIDINE URINE NEGATIVE (NEGATIVE)
[2020-04-11 16:06] LABS: ALBUMIN 3.8 GM/DL (3.2-5.2); ALT/SGPT 24 U/L (12-78); BILIRUBIN,DIRECT 0.2 MG/DL (0.0-0.2); BILIRUBIN,TOTAL 0.5 MG/DL (0.2-1.0); BLOOD UREA NITROGEN 6 MG/DL (7-18); CALCIUM LEVEL 9.7 MG/DL (8.5-10.1); CARBON DIOXIDE LEVEL 29 MEQ/L (21-32); CHLORIDE LEVEL 109 MEQ/L (98-107); CREATININE FOR GFR 0.58 MG/DL (0.55-1.30); ETHYL ALCOHOL (ETHANOL) < 0.003 % (0.000-0.010); GLOMERULAR FILTRATION RATE > 60.0 (>60); GLUCOSE, FASTING 83 MG/DL (70-100); POTASSIUM SERUM 3.8 MEQ/L (3.5-5.1); SALICYLATE LEVEL < 1.7 MG/DL (5.0-30.0); SODIUM LEVEL 142 MEQ/L (136-145); TOTAL PROTEIN 6.6 GM/DL (6.4-8.2)
[2020-04-11 16:07] LABS: ACETAMINOPHEN LEVEL < 2.0 UG/ML (10.0-30.0)
[2020-04-11 17:53] LABS: HCG, SERUM QUALITATIVE NEGATIVE (NEGATIVE)
[2020-04-12 01:37] LABS: RSV AMPLIFICATION NEGATIVE (NEGATIVE)
[2020-04-12] MEDS: MULTIVITAMINS/MINERALS THERAP 1 TAB PO SCH ×2 (09:00→20:47)
[2020-04-12] MEDS: VITAMIN D 1,000 INTERNATIONAL UNITS TABLET PO SCH ×2 (09:00→20:47)
[2020-04-12] MEDS: CALCIUM CARBONATE 500 MG CHEW U/D PO SCH ×2 (09:00→20:47)
[2020-04-12] MEDS ORDERED: MAALOX 30 ML SUSP *UDC PO PRN (13:15)
[2020-04-12] MEDS ORDERED: MOM 30ML SUSPENSION UDC PO PRN (13:15)
--- NOTE | 2020-04-12 13:32 | ECGEPIP ---
[facility] - ED Test Date: 2020-04-11 Pat Name: MIR MARMOLEJO Department: Room: - Gender: Female Insurance Plan Specialist: RAFIA : 1995 Requested By: Jazmín Orellana Order Number: [id number] Reading MD: Norberto Henry Measurements Intervals [place] Rate: 61 P: 56 GA: 154 QRS: 74 QRSD: 98 T: 62 QT: 408 QTc: 414 Interpretive Statements SINUS RHYTHM NSTTW ABNORMALITY(S) SIMILAR TO 12/03/19 Electronically Signed on 04-12-2020 13:32:18 EST by Norberto Henry
[2020-04-12 14:56] VITALS: BP 140/82
[2020-04-12 16:00] VITALS: BP 142/86
[2020-04-12] MEDS: ACETAMINOPHEN TAB 650MG DOSE (2X325MG) PO PRN (20:48)
[2020-04-12] MEDS ORDERED: GABAPENTIN 100 MG CAP PO SCH (22:45)
[2020-04-13] MEDS: ACETAMINOPHEN TAB 650MG DOSE (2X325MG) PO PRN (06:06)
[2020-04-13] MEDS: GABAPENTIN 300 MG CAP PO SCH ×3 (06:48→21:11)
[2020-04-13 07:02] VITALS: BP 124/80
[2020-04-13] MEDS ORDERED: GABAPENTIN 100 MG CAP PO SCH (09:00)
[2020-04-13] MEDS: CALCIUM CARBONATE 500 MG CHEW U/D PO SCH (09:00)
[2020-04-13] MEDS: MULTIVITAMINS/MINERALS THERAP 1 TAB PO SCH (09:14)
[2020-04-13] MEDS: VITAMIN D 1,000 INTERNATIONAL UNITS TABLET PO SCH (09:14)
--- NOTE | 2020-04-13 10:44 | MHHPEPDOC ---
General Date Of Admission: Apr 12, 2020 Legal Status: 9.39 Chief Complaint "I do not know what is wrong with me. History of Present Illness HISTORY OF THE PRESENT ILLNESS: Patient is a 24 -year-old , female, who Presents to [facility] after reporting suicidal thoughts, she describes having increasing difficulty sleeping, sometimes paranoid thoughts and increasing irritability. She describes a history of stent for some time feeling that she is energized alternating between euphoria and dysphoria. She describes otherwise that she has difficulties in taking various medications feeling that it makes her worse and more aggressive. She describes that this alternating dysphoria it made her increasingly suicidal where she had presented for inpatient admission. Psychiatric Review of Systems Depression (2 or more weeks): depressed mood, insomnia/hypersomnia Estrellita (4 or more days of): decreased need for sleep Psychosis: paranoia PTSD: history of trauma, nightmares and flashbacks, hypervigilance Anxiety: situational anxiety Anxiety/ 6 months or more of: difficulty concentrating, irritability Past Psychiatric History Previous Psychiatric Diagnosis: Bipolar. Previous Psychiatric Admissions: Denies. Suicide Attempts: Denies. Psychiatric Follow-up: PCP/therapist. Psychiatric medications: Tried multiple different medications all of which are ineffective including Cymbalta, Abilify and others. Past Medical History Medical Problems Gastric bypass Family Medical/Psychiatric HX Psychiatric Disorders: Yes Addiction: No (Bipolar) Suicide Attemps/Completions: No Addiction History denies Social History Abuse/Trauma:Reports a history of trauma,In early life Current Living Situation: Lives in a rented apartment Education: Graduate high school. Employment: Employed at [employer]. Social Support: Supported by friends. Legal: None noted. Marital: Several children, partner of 3 years. Mental Status Examination General Appearance: well groomed Build: average Demeanor: average Eye Contact: average Activity: average Behavior: cooperative Speech: clear Mood: depressed Affect: constricted Thought Process: logical/linear Thought Content (Delusions): none reported Thought Content (Other): none reported Thought Content (Aggressive): none reported Perception (Hallucinations): none reported Perception (Other): none reported Cognition (Impairment of): none reported Cognition(Intelligence Est.): average Oriented: Oriented times three Insight: fair Judgment: Fair Psychosis: Denies Assessment 24-year-old woman with a history of symptoms consistent with possible bipolar disorder presents after having suicidal thoughts, she would do best on an agent that is newer, with more evidence for mixed episode if she could meet that criteria better than peer bipolar estrellita or depression Problem List Problems: (1) Bipolar 1 disorder, mixed Status: Acute Response to Treatment: Uncontrolled Problem Specific Plan: Monitor Clinically Problem Text: Start Vraylar 1.5 mg daily Initial Treatment Plan 1. Patient was admitted on a [9.39] status. 2. Complete history was obtained. 3. With patients permission, family will be contacted and database will be expanded. 4. Patients medication regimen will be reviewed and changed accordingly. 5. Patient will be provided with protected environment. 6. Patient will be treated with individual, group, and milieu therapies. 7. Patient will receive supportive psych-education. 8. Discharge planning will commence immediately. 9. Outpatient follow-up treatment will be strongly recommended. 10. The initial treatment plan will focus initially on: * Depression. * Risk for suicide. ESTIMATED LENGTH OF STAY: 2-4 DAYS. TIME SPENT COUNSELING AND COORDINATING INITIAL CARE: 30 minutes. Vital Signs Vital Signs Date Time Temp Pulse Resp B/P (MAP) Pulse Ox O2 Delivery O2 Flow Rate FiO2 04/13/20 07:02 97.2 72 16 124/80 (95) 98 Room Air Medications Scheduled Biotin (Biotin) 1 Mg Capsule, 1 MG PO DAILY, (Reported) Calcium Carbonate (Calcium) 500 Mg Tab.chew, 500 MG PO DAILY, (Reported) Cholecalciferol (Vitamin D3) (Vitamin D3) 1,000 Unit Tablet, 1,000 UNITS PO DAILY, (Reported) Multivitamin,Therapeutic (Thera-Tabs) 1 Each Tablet, 1 TAB PO DAILY, (Reported) Allergies Coded Allergies: amoxicillin (Verified Allergy, Mild, rash, 08/26/18) ibuprofen (Verified Allergy, Mild, rash and vomitting, 08/26/18) pt states she gets a rash on her chest if she takes ibuprofen latex (Verified Allergy, Mild, rash, 08/26/18) NSAIDS (Non-Steroidal Anti-Inflamma (Verified Adverse Reaction, Unknown, HAD WEIGHTLOSS SURGERY, INTOLERANCE, 04/11/20) lactose (Verified Adverse Reaction, Unknown, 04/11/20) JENS MASTERS DO Apr 13, 2020 10:44
[2020-04-13] MEDS ORDERED: CARIPRAZINE 1.5MG CAPSULE (VRAYLAR) PO ONE (16:00)
--- NOTE | 2020-04-13 17:29 | HPEPDOC ---
[facility] Medical History & Physical Date of Admission Apr 13, 2020 Date of Service: Apr 13, 2020 History and Physical CHIEF COMPLAINT: Depression and anxiety HISTORY OF PRESENT ILLNESS: 24 female admitted to psychiatric unit for anxiety and depression and suicidal thoughts. Medically she has a history of fibromyalgia hypertension not on any medications and recent gastric bypass surgery 5 months ago which looked weight loss and not requiring CPAP machine for NICKO. She tells me currently she is feeling well. She has no complaints at this time. She says her blood pressure is better controlled with weight loss and she is lost about 100 pounds over the past 5 months since her surgery. I am asked to provide a medical assessment of patient admitted to the psychiatric unit. My assessment is limited to medical problems and does not address any psychiatric problems which is deferred to the in-house psychiatrist. PAST MEDICAL HISTORY: Diagnosed with hypertension but doesn't take any medications History of NICKO on CPAP in the past but has not required it since weight loss after bariatric surgery Fibromyalgia PAST SURGICAL HISTORY: 2 C-sections Cholecystectomy 2014 Tonsillectomy 2009 2 umbilicus hernia repairs 2018 in 2019 Gastric bypass approximately 5 months ago SOCIAL HISTORY: Denies alcohol use Denies tobacco use quit smoking 2 years ago Denies illicit drug use other than occasional cannabis use FAMILY HISTORY: Mother bipolar diabetes kidney cancer Father diabetes ALLERGIES: Please see below. REVIEW OF SYSTEMS: 10 point review of systems complete all negative otherwise stated in HPI HOME MEDICATIONS: Please see below. PHYSICAL EXAMINATION: Constitutional: Awake and alert, in no apparent distress ENT: Sclera are clear. Mucosa is moist. Respiratory: Lungs CTA bilaterally. No respiratory distress. Cardiovascular: RRR S1 and S2 are normal Gastrointestinal: Abdomen is soft, non distended, non tender, obese Musculoskeletal: No edema. Neurologic: No focal neurological deficit. Mental Status: A&O x3, normal affect Skin: Warm, dry LABORATORY DATA: See below. MICROBIOLOGY: Please see below. ASSESSMENT/PLAN I was asked to evaluate this 24-year-old female who was admitted to psychiatric unit for anxiety depression and suicidal thoughts to provide a medical evaluation. # Hypertension: Not on a medications. Latest blood pressure measurements normal. I recommend continued weight loss which will continue to improve her blood pressure as well as left some modifications. #Obesity: BMI 50. She's been losing weight after her period surgery. She should continue follow-up with her primary care doctor and get diabetes and cholesterol screening done with him in the clinic. No longer requiring CPAP machine. #Fibromyalgia: She takes gabapentin as needed for her pains and she can continue to do so as it seems to be helping. #Gastric bypass: She follow-up with her primary care doctor for routine lab work post gastric bypass. #Anxiety for/depression/suicidal thoughts: Per psychiatrist A [facility] Hospitalist Vital Signs Vital Signs Date Time Temp Pulse Resp B/P (MAP) Pulse Ox O2 Delivery O2 Flow Rate FiO2 04/13/20 07:02 97.2 72 16 124/80 (95) 98 Room Air Home Medications Scheduled Biotin (Biotin) 1 Mg Capsule, 1 MG PO DAILY Calcium Carbonate (Calcium) 500 Mg Tab.chew, 500 MG PO DAILY Cholecalciferol (Vitamin D3) (Vitamin D3) 1,000 Unit Tablet, 1,000 UNITS PO DAILY Multivitamin,Therapeutic (Thera-Tabs) 1 Each Tablet, 1 TAB PO DAILY Allergies Coded Allergies: amoxicillin (Verified Allergy, Mild, rash, 08/26/18) ibuprofen (Verified Allergy, Mild, rash and vomitting, 08/26/18) pt states she gets a rash on her chest if she takes ibuprofen latex (Verified Allergy, Mild, rash, 08/26/18) NSAIDS (Non-Steroidal Anti-Inflamma (Verified Adverse Reaction, Unknown, HAD WEIGHTLOSS SURGERY, INTOLERANCE, 04/11/20) lactose (Verified Adverse Reaction, Unknown, 04/11/20) A-FIB/CHADSVASC A-FIB History Current/History of A-Fib/PAF?: No DOTTY LESLIE MD Apr 13, 2020 17:29
[2020-04-13 18:00] VITALS: BP 142/88
[2020-04-14] MEDS: traZODone 50 MG TAB PO PRN ×2 (00:31→21:52)
[2020-04-14] MEDS ORDERED: LORazepam 0.5 MG TAB PO ONE (00:45)
[2020-04-14 06:37] VITALS: BP 149/84
[2020-04-14] MEDS: CALCIUM CARBONATE 500 MG CHEW U/D PO SCH (09:00)
[2020-04-14] MEDS: VITAMIN D 1,000 INTERNATIONAL UNITS TABLET PO SCH (09:55)
[2020-04-14] MEDS: MULTIVITAMINS/MINERALS THERAP 1 TAB PO SCH (09:55)
[2020-04-14] MEDS: CARIPRAZINE 1.5MG CAPSULE (VRAYLAR) PO SCH (09:56)
[2020-04-14] MEDS: GABAPENTIN 300 MG CAP PO SCH ×3 (10:45→21:52)
--- NOTE | 2020-04-14 11:23 | MHIPNPDOC ---
[facility] Progress Note Progress Note DATE OF SERVICE: 04/14/20 HISTORY: The patient is met with today, she reports she has had no major changes, she describes still feeling down and suicidal at times. She describes that her mood variation and fear around others is still very much intact. She is going to groups but reports that she has not noticed any negatives from her medications either.. VITAL SIGNS: See below. NEW TEST RESULTS: none. CURRENT MEDICATIONS: See below. MENTAL STATUS EXAMINATION: General Appearance: well groomed Build: average Demeanor: average Eye Contact: average Activity: average Behavior: cooperative Speech: clear Mood: depressed Affect: constricted Thought Process: logical/linear Thought Content (Delusions): none reported Thought Content (Other): none reported Thought Content (Aggressive): none reported Perception (Hallucinations): none reported Perception (Other): none reported Cognition (Impairment of): none reported Cognition(Intelligence Est.): average Oriented: Oriented times three Insight: fair Judgment: Fair Psychosis: Denies DIAGNOSES: 1. Other bipolar disorder. ASSESSMENT:The patient appears to be making slow progress, will continue Vraylar and observation MANAGEMENT PLAN: Continue Vraylar 1.5 mg daily. TIME SPENT: 15 minutes. Vital Signs Vital Signs Date Time Temp Pulse Resp B/P (MAP) Pulse Ox O2 Delivery O2 Flow Rate FiO2 04/14/20 06:37 96.7 87 18 149/84 (105) 99 Room Air Laboratory Data 24H Labs Laboratory Tests 2 04/14/20 01:44: Bedside Glucose (Misc Panel) 82 Current Medications Current Medications Medications (Trade) Dose Ordered Sig/Eleazar Route PRN Reason Start Time Stop Time Status Last Admin Dose Admin Acetaminophen (Tylenol Tab) 650 mg Q6HP PRN PO HEADACHE or DISCOMFORT 04/12/20 13:15 04/13/20 06:06 Al Hydrox/Mg Hydrox/Simethicone (Mylanta) 30 ml Q4HP PRN PO HEARTBURN/INDIGESTION 04/12/20 13:15 04/13/20 20:17 Calcium Carbonate (Tums) 500 mg DAILY PO 04/12/20 09:00 Cariprazine (Vraylar) 1.5 mg DAILY PO 04/14/20 09:00 04/14/20 09:56 Gabapentin (Neurontin) 100 mg TID PO 04/12/20 22:45 04/13/20 06:08 DC 04/12/20 23:00 Gabapentin (Neurontin) 100 mg TID PO 04/13/20 09:00 04/12/20 22:39 DC Gabapentin (Neurontin) 300 mg TID PO 04/13/20 06:15 04/13/20 21:11 Home Med (Med Rec Complete!) ASDIRECTED XX 04/11/20 19:30 04/11/20 19:20 DC Magnesium Hydroxide (Milk Of Magnesia) 30 ml DAILYPRN PRN PO CONSTIPATION 04/12/20 13:15 Multivitamins (Theragram-M) 1 tab DAILY PO 04/12/20 09:00 04/14/20 09:55 Trazodone HCl (Desyrel) 50 mg QHSP PRN PO INSOMNIA 04/12/20 13:15 04/14/20 00:31 Vitamin D (Vitamin D) 1,000 units DAILY PO 04/12/20 09:00 04/14/20 09:55 Allergies Coded Allergies: amoxicillin (Verified Allergy, Mild, rash, 08/26/18) ibuprofen (Verified Allergy, Mild, rash and vomitting, 08/26/18) pt states she gets a rash on her chest if she takes ibuprofen latex (Verified Allergy, Mild, rash, 08/26/18) NSAIDS (Non-Steroidal Anti-Inflamma (Verified Adverse Reaction, Unknown, HAD WEIGHTLOSS SURGERY, INTOLERANCE, 04/11/20) lactose (Verified Adverse Reaction, Unknown, 04/11/20) JENS MASTERS DO Apr 14, 2020 11:23
[2020-04-14] MEDS: SIMETHICONE 80 MG CHEW TAB PO PRN (21:52)
[2020-04-15] MEDS: ACETAMINOPHEN TAB 650MG DOSE (2X325MG) PO PRN (01:15)
[2020-04-15 06:41] VITALS: BP 154/87
[2020-04-15] MEDS: CALCIUM CARBONATE 500 MG CHEW U/D PO SCH (09:00)
[2020-04-15] MEDS: VITAMIN D 1,000 INTERNATIONAL UNITS TABLET PO SCH (09:45)
[2020-04-15] MEDS: CARIPRAZINE 1.5MG CAPSULE (VRAYLAR) PO SCH (09:45)
[2020-04-15] MEDS: MULTIVITAMINS/MINERALS THERAP 1 TAB PO SCH (09:46)
[2020-04-15] MEDS: GABAPENTIN 300 MG CAP PO SCH ×3 (09:46→21:09)
--- NOTE | 2020-04-15 12:55 | CR.PDOC ---
General Date of Consultation: Apr 15, 2020 Consultation REASON FOR CONSULTATION/CHIEF COMPLAINT: Derm consultation was requested following patient complaints of pruritus and to rule out infestation. HISTORY OF PRESENT ILLNESS: Patient c/o a pruritic eruption on dorsal hands x a few days. She has been applying otc Vasoline without improvement. ALLERGIES: Please see below. HOME MEDICATIONS: Please see below. PE: -Eczematous plaques on bilateral dorsal hands. Nothing noted in interdigital web spaces or flexural wrists. A/P: 1. Eczematous hand dermatitis -Suggest triamcinolone 0.1% ointment to be applied twice daily x 2 weeks (5 grams daily) 2. No evidence of Infestation Vital Signs/I&O Vital Signs Date Time Temp Pulse Resp B/P (MAP) Pulse Ox O2 Delivery O2 Flow Rate FiO2 04/15/20 06:41 97.1 66 18 154/87 (109) 96 Room Air Allergies Coded Allergies: amoxicillin (Verified Allergy, Mild, rash, 08/26/18) ibuprofen (Verified Allergy, Mild, rash and vomitting, 08/26/18) pt states she gets a rash on her chest if she takes ibuprofen latex (Verified Allergy, Mild, rash, 08/26/18) NSAIDS (Non-Steroidal Anti-Inflamma (Verified Adverse Reaction, Unknown, HAD WEIGHTLOSS SURGERY, INTOLERANCE, 04/11/20) lactose (Verified Adverse Reaction, Unknown, 04/11/20) Home Medications Scheduled Biotin (Biotin) 1 Mg Capsule, 1 MG PO DAILY, (Reported) Calcium Carbonate (Calcium) 500 Mg Tab.chew, 500 MG PO DAILY, (Reported) Cholecalciferol (Vitamin D3) (Vitamin D3) 1,000 Unit Tablet, 1,000 UNITS PO DA DAWSON, (Reported) Multivitamin,Therapeutic (Thera-Tabs) 1 Each Tablet, 1 TAB PO DAILY, (Reported) Mercy Prince PA-C Apr 15, 2020 12:55
--- NOTE | 2020-04-15 13:17 | MHIPNPDOC ---
[facility] Progress Note Progress Note DATE OF SERVICE: 04/15/20 HISTORY: The patient is met with today, she reports intermittent suicidal thoughts especially the evening, reporting increased anxiety and difficulty with moodiness. She reports that she's not clear whether the medication makes her sedated but notes that she still has worries about work and concerns about her mood variation and severe depression. She otherwise describes that she is attempting to interact but at times feels anxious and worried around others. VITAL SIGNS: See below. NEW TEST RESULTS: none. CURRENT MEDICATIONS: See below. MENTAL STATUS EXAMINATION: General Appearance: well groomed Build: average Demeanor: average Eye Contact: average Activity: average Behavior: cooperative Speech: clear Mood: depressed Affect: constricted Thought Process: logical/linear Thought Content (Delusions): none reported Thought Content (Other): Reports intermittent passive suicidal thoughts, most recently last night Thought Content (Aggressive): none reported Perception (Hallucinations): none reported Perception (Other): none reported Cognition (Impairment of): none reported Cognition(Intelligence Est.): average Oriented: Oriented times three Insight: fair Judgment: Fair Psychosis: Denies DIAGNOSES: 1. Other bipolar disorder. ASSESSMENT:The patient appears to be making slow progress, will continue Vraylar and observation MANAGEMENT PLAN: We'll move cariprazine to 1.5 mg nightly when increased to 3 mg tomorrow, add 10 mg of Serax every 4 hours when necessary for anxiety TIME SPENT: 15 minutes. Vital Signs Vital Signs Date Time Temp Pulse Resp B/P (MAP) Pulse Ox O2 Delivery O2 Flow Rate FiO2 04/15/20 06:41 97.1 66 18 154/87 (109) 96 Room Air Current Medications Current Medications Medications (Trade) Dose Ordered Sig/Eleazar Route PRN Reason Start Time Stop Time Status Last Admin Dose Admin Acetaminophen (Tylenol Tab) 650 mg Q6HP PRN PO HEADACHE or DISCOMFORT 04/12/20 13:15 04/15/20 01:15 Al Hydrox/Mg Hydrox/Simethicone (Mylanta) 30 ml Q4HP PRN PO HEARTBURN/INDIGESTION 04/12/20 13:15 04/13/20 20:17 Calcium Carbonate (Tums) 500 mg DAILY PO 04/12/20 09:00 Cariprazine (Vraylar) 1.5 mg DAILY PO 04/14/20 09:00 04/15/20 09:45 Gabapentin (Neurontin) 100 mg TID PO 04/12/20 22:45 04/13/20 06:08 DC 04/12/20 23:00 Gabapentin (Neurontin) 100 mg TID PO 04/13/20 09:00 04/12/20 22:39 DC Gabapentin (Neurontin) 300 mg TID PO 04/13/20 06:15 04/15/20 09:46 Home Med (Med Rec Complete!) ASDIRECTED XX 04/11/20 19:30 04/11/20 19:20 DC Magnesium Hydroxide (Milk Of Magnesia) 30 ml DAILYPRN PRN PO CONSTIPATION 04/12/20 13:15 Multivitamins (Theragram-M) 1 tab DAILY PO 04/12/20 09:00 04/15/20 09:46 Simethicone (Mylicon) 80 mg Q6HP PRN PO GAS PAIN 04/14/20 17:45 04/14/20 21:52 Trazodone HCl (Desyrel) 50 mg QHSP PRN PO INSOMNIA 04/12/20 13:15 04/14/20 21:52 Vitamin D (Vitamin D) 1,000 units DAILY PO 04/12/20 09:00 04/15/20 09:45 Allergies Coded Allergies: amoxicillin (Verified Allergy, Mild, rash, 08/26/18) ibuprofen (Verified Allergy, Mild, rash and vomitting, 08/26/18) pt states she gets a rash on her chest if she takes ibuprofen latex (Verified Allergy, Mild, rash, 08/26/18) NSAIDS (Non-Steroidal Anti-Inflamma (Verified Adverse Reaction, Unknown, HAD WEIGHTLOSS SURGERY, INTOLERANCE, 04/11/20) lactose (Verified Adverse Reaction, Unknown, 04/11/20) JENS MASTERS DO Apr 15, 2020 13:17
[2020-04-15 16:50] LABS: APPEARANCE, URINE HAZY (CLEAR); BACTERIA, URINE AUTO NEGATIVE (NEGATIVE); BILIRUBIN, URINE AUTO NEGATIVE (NEGATIVE); BLOOD, URINE BLOOD NEGATIVE (NEGATIVE); COLOR, URINE YELLOW (YELLOW); GLUCOSE, URINE (UA) AUTO NEGATIVE (NEGATIVE); KETONE, URINE AUTO NEGATIVE (NEGATIVE); LEUKOCYTE ESTERASE, URINE AUTO TRACE (NEGATIVE); NITRITE, URINE AUTO NEGATIVE (NEGATIVE); PROTEIN, URINE AUTO NEGATIVE (NEGATIVE); RBC, URINE AUTO 0 /HPF (0-3); SPECIFIC GRAVITY URINE AUTO 1.021 (1.002-1.035); SQUAMOUS EPITHELIAL CELL UR AU 7 /HPF (0-6); WBC, URINE AUTO 1 /HPF (0-3)
[2020-04-15 18:00] VITALS: BP 136/80
[2020-04-15] MEDS ORDERED: CARIPRAZINE 1.5MG CAPSULE (VRAYLAR) PO SCH (21:00)
[2020-04-15] MEDS: OXAZEPAM 10 MG CAP PO PRN (21:09)
[2020-04-15] MEDS: traZODone 100 MG TAB PO PRN (21:16)
[2020-04-16 06:27] VITALS: BP 117/73
[2020-04-16] MEDS: CALCIUM CARBONATE 500 MG CHEW U/D PO SCH (09:00)
[2020-04-16] MEDS: MULTIVITAMINS/MINERALS THERAP 1 TAB PO SCH (09:07)
[2020-04-16] MEDS: GABAPENTIN 300 MG CAP PO SCH (09:07)
[2020-04-16] MEDS: VITAMIN D 1,000 INTERNATIONAL UNITS TABLET PO SCH (09:07)
--- NOTE | 2020-04-16 10:02 | MHIPNPDOC ---
[facility] Progress Note Progress Note DATE OF SERVICE: 04/16/20 HISTORY: The patient is met with today, she reports she is still feeling somewhat down and anxious, she reports some passive suicidal thoughts the previous evening, and some difficulty sleeping. She describes that she is still trying to go to groups and cope but feels that she has not made much progress in terms of her depression, low mood and difficulties. VITAL SIGNS: See below. NEW TEST RESULTS: none. CURRENT MEDICATIONS: See below. MENTAL STATUS EXAMINATION: General Appearance: well groomed Build: average Demeanor: average Eye Contact: average Activity: average Behavior: cooperative Speech: clear Mood: depressed Affect: constricted Thought Process: logical/linear Thought Content (Delusions): none reported Thought Content (Other): Reports intermittent passive suicidal thoughts, most recently last night Thought Content (Aggressive): none reported Perception (Hallucinations): none reported Perception (Other): none reported Cognition (Impairment of): none reported Cognition(Intelligence Est.): average Oriented: Oriented times three Insight: fair Judgment: Fair Psychosis: Denies DIAGNOSES: 1. Other bipolar disorder. ASSESSMENT:We will add Rozerem for sleep and continue increase Vraylar for mood stability as well as low-dose Serax for anxiety it appears that there could be benefit at higher dose MANAGEMENT PLAN: Continue Vraylar 3 mg nightly, Serax 10 mg every 4 hours as needed for anxiety and Rozerem 8 mg nightly TIME SPENT: 15 minutes. Vital Signs Vital Signs Date Time Temp Pulse Resp B/P (MAP) Pulse Ox O2 Delivery O2 Flow Rate FiO2 04/16/20 06:27 96.9 71 18 117/73 (88) 99 Room Air Laboratory Data 24H Labs Laboratory Tests 2 04/15/20 15:33: Bedside Glucose (Misc Panel) 66L 04/15/20 16:05: Urine Color YELLOW, Urine Appearance HAZY, Urine pH 6.0, Urine Specific [place] 1.021, Urine Protein NEGATIVE, Urine Glucose (Auto)(UA) NEGATIVE, Urine Ketones (Auto) NEGATIVE, Urine Blood NEGATIVE, Urine Nitrite NEGATIVE, Urine Bilirubin NEGATIVE, Urine Urobilinogen 2.0H, Urine Leukocyte Esterase (Auto) TRACEH, Urine WBC (Auto) 1, Urine RBC (Auto) 0, Urine Hyaline Casts (Auto) 0, Urine Bacteria (Auto) NEGATIVE, Urine Squamous Epithelial Cells 7, Urine Sperm (Auto) 1221/20 09:11: Bedside Glucose (Misc Panel) 90 Current Medications Current Medications Medications (Trade) Dose Ordered Sig/Eleazar Route PRN Reason Start Time Stop Time Status Last Admin Dose Admin Acetaminophen (Tylenol Tab) 650 mg Q6HP PRN PO HEADACHE or DISCOMFORT 04/12/20 13:15 04/15/20 01:15 Al Hydrox/Mg Hydrox/Simethicone (Mylanta) 30 ml Q4HP PRN PO HEARTBURN/INDIGESTION 04/12/20 13:15 04/13/20 20:17 Calcium Carbonate (Tums) 500 mg DAILY PO 04/12/20 09:00 Cariprazine (Vraylar) 1.5 mg DAILY PO 04/14/20 09:00 04/15/20 16:44 DC 04/15/20 09:45 Cariprazine (Vraylar) 3 mg QHS PO 04/15/20 21:00 04/15/20 16:46 DC Cariprazine (Vraylar) 3 mg QHS PO 04/16/20 21:00 Gabapentin (Neurontin) 100 mg TID PO 04/12/20 22:45 04/13/20 06:08 DC 04/12/20 23:00 Gabapentin (Neurontin) 100 mg TID PO 04/13/20 09:00 04/12/20 22:39 DC Gabapentin (Neurontin) 300 mg TID PO 04/13/20 06:15 04/16/20 09:07 Home Med (Med Rec Complete!) ASDIRECTED XX 04/11/20 19:30 04/11/20 19:20 DC Magnesium Hydroxide (Milk Of Magnesia) 30 ml DAILYPRN PRN PO CONSTIPATION 04/12/20 13:15 04/15/20 15:54 DC Multivitamins (Theragram-M) 1 tab DAILY PO 04/12/20 09:00 04/16/20 09:07 Oxazepam (Serax) 10 mg Q8HP PRN PO AGITATION 04/15/20 16:45 04/15/20 21:09 Polyethylene Glycol (Miralax) 1 pkt DAILYPRN PRN PO CONSTIPATION 04/15/20 16:00 Simethicone (Mylicon) 80 mg Q6HP PRN PO GAS PAIN 04/14/20 17:45 04/14/20 21:52 Trazodone HCl (Desyrel) 50 mg QHSP PRN PO INSOMNIA 04/12/20 13:15 04/15/20 16:44 DC 04/14/20 21:52 Trazodone HCl (Desyrel) 100 mg QHSP PRN PO INSOMNIA 04/15/20 16:45 04/15/20 21:16 Vitamin D (Vitamin D) 1,000 units DAILY PO 04/12/20 09:00 04/16/20 09:07 Allergies Coded Allergies: amoxicillin (Verified Allergy, Mild, rash, 08/26/18) ibuprofen (Verified Allergy, Mild, rash and vomitting, 08/26/18) pt states she gets a rash on her chest if she takes ibuprofen latex (Verified Allergy, Mild, rash, 08/26/18) NSAIDS (Non-Steroidal Anti-Inflamma (Verified Adverse Reaction, Unknown, HAD WEIGHTLOSS SURGERY, INTOLERANCE, 04/11/20) lactose (Verified Adverse Reaction, Unknown, 04/11/20) JENS MASTERS DO Apr 16, 2020 10:02
[2020-04-16 16:00] VITALS: BP 128/67
[2020-04-16] MEDS ORDERED: GABAPENTIN 300 MG CAP PO SCH (16:00)
[2020-04-16] MEDS: GABAPENTIN 100 MG CAP PO SCH ×2 (16:26→20:27)
[2020-04-16] MEDS: OXAZEPAM 10 MG CAP PO PRN (16:36)
[2020-04-16] MEDS: ACETAMINOPHEN TAB 650MG DOSE (2X325MG) PO PRN (20:26)
[2020-04-16] MEDS: CARIPRAZINE 3MG CAPSULE (VRAYLAR) PO SCH (20:27)
[2020-04-16] MEDS: RAMELTEON 8 MG TAB (ROZEREM) PO SCH (20:27)
[2020-04-17 06:25] VITALS: BP 136/77
[2020-04-17] MEDS: ACETAMINOPHEN TAB 650MG DOSE (2X325MG) PO PRN ×2 (07:05→14:48)
[2020-04-17] MEDS: MULTIVITAMINS/MINERALS THERAP 1 TAB PO SCH (08:30)
[2020-04-17] MEDS: SIMETHICONE 80 MG CHEW TAB PO PRN (08:31)
[2020-04-17] MEDS: GABAPENTIN 100 MG CAP PO SCH ×3 (08:31→20:52)
[2020-04-17] MEDS: VITAMIN D 1,000 INTERNATIONAL UNITS TABLET PO SCH (08:31)
[2020-04-17] MEDS: MIRALAX *UNIT DOSE* 17GM PACKET PO PRN (08:31)
[2020-04-17] MEDS: CALCIUM CARBONATE 500 MG CHEW U/D PO SCH (08:32)
[2020-04-17] MEDS: OXAZEPAM 10 MG CAP PO PRN (09:22)
--- NOTE | 2020-04-17 10:32 | MHIPNPDOC ---
[facility] Progress Note Progress Note DATE OF SERVICE: 04/17/20 HISTORY: The patient was met with today, she reports she is making some slow progress and her depression is starting to resolve. She reports her anxiety is starting to get better but notices that it does get punctuated that she has been started to be tapered off the gabapentin as she had wanted. The patient reports that she generally is making some progress and her suicidal ideation is not as present, she is interested in potentially getting better in time to return home for [employer], she does worry about whether she would have to work on [employer] and this seems to be a difficult issue for her if she is allowed to spend some time with her children she reports she would feel much improved VITAL SIGNS: See below. NEW TEST RESULTS: none. CURRENT MEDICATIONS: See below. MENTAL STATUS EXAMINATION: General Appearance: well groomed Build: average Demeanor: average Eye Contact: average Activity: average Behavior: cooperative Speech: clear Mood: Improved Affect: Improved Thought Process: logical/linear Thought Content (Delusions): none reported Thought Content (Other): Reports no recent thoughts today Thought Content (Aggressive): none reported Perception (Hallucinations): none reported Perception (Other): none reported Cognition (Impairment of): none reported Cognition(Intelligence Est.): average Oriented: Oriented times three Insight: fair Judgment: Fair Psychosis: Denies DIAGNOSES: 1. Other bipolar disorder. ASSESSMENT:We will continue medications as current without any changes, allow the medications to take some time and potentially discharge patient on Tyrone Kiki if improvement is continued with a period of time to recover MANAGEMENT PLAN: Continue Vraylar 3 mg nightly, Serax 10 mg every 4 hours as needed for anxiety and Rozerem 8 mg nightly, Will continue gabapentin at 100 mg 3 times daily as she reports that it makes her too sedated TIME SPENT: 15 minutes. Vital Signs Vital Signs Date Time Temp Pulse Resp B/P (MAP) Pulse Ox O2 Delivery O2 Flow Rate FiO2 04/17/20 06:25 96.9 61 16 136/77 (96) 97 Room Air Current Medications Current Medications Medications (Trade) Dose Ordered Sig/Eleazar Route PRN Reason Start Time Stop Time Status Last Admin Dose Admin Acetaminophen (Tylenol Tab) 650 mg Q6HP PRN PO HEADACHE or DISCOMFORT 04/12/20 13:15 04/17/20 07:05 Al Hydrox/Mg Hydrox/Simethicone (Mylanta) 30 ml Q4HP PRN PO HEARTBURN/INDIGESTION 04/12/20 13:15 04/13/20 20:17 Calcium Carbonate (Tums) 500 mg DAILY PO 04/12/20 09:00 Cariprazine (Vraylar) 1.5 mg DAILY PO 04/14/20 09:00 04/15/20 16:44 DC 04/15/20 09:45 Cariprazine (Vraylar) 3 mg QHS PO 04/15/20 21:00 04/15/20 16:46 DC Cariprazine (Vraylar) 3 mg QHS PO 04/16/20 21:00 04/16/20 20:27 Gabapentin (Neurontin) 100 mg TID PO 04/12/20 22:45 04/13/20 06:08 DC 04/12/20 23:00 Gabapentin (Neurontin) 100 mg TID PO 04/13/20 09:00 04/12/20 22:39 DC Gabapentin (Neurontin) 100 mg TID PO 04/16/20 16:00 04/17/20 08:31 Gabapentin (Neurontin) 150 mg TID PO 04/16/20 16:00 04/16/20 16:23 DC Gabapentin (Neurontin) 300 mg TID PO 04/13/20 06:15 04/16/20 14:39 DC 04/16/20 09:07 Home Med (Med Rec Complete!) ASDIRECTED XX 04/11/20 19:30 04/11/20 19:20 DC Magnesium Hydroxide (Milk Of Magnesia) 30 ml DAILYPRN PRN PO CONSTIPATION 04/12/20 13:15 04/15/20 15:54 DC Multivitamins (Theragram-M) 1 tab DAILY PO 04/12/20 09:00 04/17/20 08:30 Oxazepam (Serax) 10 mg Q8HP PRN PO AGITATION 04/15/20 16:45 04/17/20 09:22 Polyethylene Glycol (Miralax) 1 pkt DAILYPRN PRN PO CONSTIPATION 04/15/20 16:00 04/17/20 08:31 Ramelteon (Rozerem) 8 mg QHS PO 04/16/20 21:00 04/16/20 20:27 Simethicone (Mylicon) 80 mg Q6HP PRN PO GAS PAIN 04/14/20 17:45 04/17/20 08:31 Trazodone HCl (Desyrel) 50 mg QHSP PRN PO INSOMNIA 04/12/20 13:15 04/15/20 16:44 DC 04/14/20 21:52 Trazodone HCl (Desyrel) 100 mg QHSP PRN PO INSOMNIA 04/15/20 16:45 04/15/20 21:16 Vitamin D (Vitamin D) 1,000 units DAILY PO 04/12/20 09:00 04/17/20 08:31 Allergies Coded Allergies: amoxicillin (Verified Allergy, Mild, rash, 08/26/18) ibuprofen (Verified Allergy, Mild, rash and vomitting, 08/26/18) pt states she gets a rash on her chest if she takes ibuprofen latex (Verified Allergy, Mild, rash, 08/26/18) NSAIDS (Non-Steroidal Anti-Inflamma (Verified Adverse Reaction, Unknown, HAD WEIGHTLOSS SURGERY, INTOLERANCE, 04/11/20) lactose (Verified Adverse Reaction, Unknown, 04/11/20) JENS MASTERS DO Apr 17, 2020 10:32
[2020-04-17 16:43] VITALS: BP 137/89
[2020-04-17] MEDS: RAMELTEON 8 MG TAB (ROZEREM) PO SCH (20:52)
[2020-04-17] MEDS: CARIPRAZINE 3MG CAPSULE (VRAYLAR) PO SCH (20:52)
[2020-04-18] MEDS: OXAZEPAM 10 MG CAP PO PRN (00:21)
[2020-04-18] MEDS: ACETAMINOPHEN TAB 650MG DOSE (2X325MG) PO PRN (06:12)
[2020-04-18] MEDS: MIRALAX *UNIT DOSE* 17GM PACKET PO PRN (06:13)
[2020-04-18 06:20] VITALS: BP 118/58
[2020-04-18] MEDS: CALCIUM CARBONATE 500 MG CHEW U/D PO SCH (08:14)
[2020-04-18] MEDS: MULTIVITAMINS/MINERALS THERAP 1 TAB PO SCH (08:16)
[2020-04-18] MEDS: GABAPENTIN 100 MG CAP PO SCH ×3 (08:17→20:08)
[2020-04-18] MEDS: VITAMIN D 1,000 INTERNATIONAL UNITS TABLET PO SCH (08:17)
[2020-04-18] MEDS: SIMETHICONE 80 MG CHEW TAB PO PRN (08:18)
--- NOTE | 2020-04-18 09:28 | MHIPNPDOC ---
[facility] Progress Note Progress Note DATE OF SERVICE: 04/18/20 HISTORY: The patient is met with today, she reports that she had broken up with her girlfriend and that she is currently homeless, having suicidal thoughts and auditory hallucinations. She reports the medication is helpful but she still has difficulty with anxiety. VITAL SIGNS: See below. NEW TEST RESULTS: none. CURRENT MEDICATIONS: See below. MENTAL STATUS EXAMINATION: General Appearance: well groomed Build: average Demeanor: average Eye Contact: average Activity: average Behavior: cooperative Speech: clear Mood: Dysthymic Affect: Depressed Thought Process: logical/linear Thought Content (Delusions): none reported Thought Content (Other): Suicidal thoughts earlier during discussion Thought Content (Aggressive): none reported Perception (Hallucinations): none reported Perception (Other): none reported Cognition (Impairment of): none reported Cognition(Intelligence Est.): average Oriented: Oriented times three Insight: fair Judgment: Fair Psychosis: Denies DIAGNOSES: 1. Other bipolar disorder. ASSESSMENT: Observer over the weekend, likely adjustment problems currently at play MANAGEMENT PLAN: Continue Vraylar 3 mg nightly, Serax 10 mg every 4 hours as needed for anxiety and Rozerem 8 mg nightly, Will continue gabapentin at 100 mg 3 times daily as she reports that it makes her too sedated TIME SPENT: 15 minutes. Vital Signs Vital Signs Date Time Temp Pulse Resp B/P (MAP) Pulse Ox O2 Delivery O2 Flow Rate FiO2 04/18/20 06:20 97.0 64 16 118/58 (78) 99 Room Air Laboratory Data 24H Labs Laboratory Tests 2 04/17/20 19:34: Bedside Glucose (Misc Panel) 85 Current Medications Current Medications Medications (Trade) Dose Ordered Sig/Eleazar Route PRN Reason Start Time Stop Time Status Last Admin Dose Admin Acetaminophen (Tylenol Tab) 650 mg Q6HP PRN PO HEADACHE or DISCOMFORT 04/12/20 13:15 04/18/20 06:12 Al Hydrox/Mg Hydrox/Simethicone (Mylanta) 30 ml Q4HP PRN PO HEARTBURN/INDIGESTION 04/12/20 13:15 04/13/20 20:17 Calcium Carbonate (Tums) 500 mg DAILY PO 04/12/20 09:00 Cariprazine (Vraylar) 1.5 mg DAILY PO 04/14/20 09:00 04/15/20 16:44 DC 04/15/20 09:45 Cariprazine (Vraylar) 3 mg QHS PO 04/15/20 21:00 04/15/20 16:46 DC Cariprazine (Vraylar) 3 mg QHS PO 04/16/20 21:00 04/17/20 20:52 Gabapentin (Neurontin) 100 mg TID PO 04/12/20 22:45 04/13/20 06:08 DC 04/12/20 23:00 Gabapentin (Neurontin) 100 mg TID PO 04/13/20 09:00 04/12/20 22:39 DC Gabapentin (Neurontin) 100 mg TID PO 04/16/20 16:00 04/18/20 08:17 Gabapentin (Neurontin) 150 mg TID PO 04/16/20 16:00 04/16/20 16:23 DC Gabapentin (Neurontin) 300 mg TID PO 04/13/20 06:15 04/16/20 14:39 DC 04/16/20 09:07 Home Med (Med Rec Complete!) ASDIRECTED XX 04/11/20 19:30 04/11/20 19:20 DC Magnesium Hydroxide (Milk Of Magnesia) 30 ml DAILYPRN PRN PO CONSTIPATION 04/12/20 13:15 04/15/20 15:54 DC Multivitamins (Theragram-M) 1 tab DAILY PO 04/12/20 09:00 04/18/20 08:16 Oxazepam (Serax) 10 mg Q8HP PRN PO AGITATION 04/15/20 16:45 04/18/20 00:21 Polyethylene Glycol (Miralax) 1 pkt DAILYPRN PRN PO CONSTIPATION 04/15/20 16:00 04/18/20 06:13 Ramelteon (Rozerem) 8 mg QHS PO 04/16/20 21:00 04/17/20 20:52 Simethicone (Mylicon) 80 mg Q6HP PRN PO GAS PAIN 04/14/20 17:45 04/18/20 08:18 Trazodone HCl (Desyrel) 50 mg QHSP PRN PO INSOMNIA 04/12/20 13:15 04/15/20 16:44 DC 04/14/20 21:52 Trazodone HCl (Desyrel) 100 mg QHSP PRN PO INSOMNIA 04/15/20 16:45 04/15/20 21:16 Vitamin D (Vitamin D) 1,000 units DAILY PO 04/12/20 09:00 04/18/20 08:17 Allergies Coded Allergies: amoxicillin (Verified Allergy, Mild, rash, 08/26/18) ibuprofen (Verified Allergy, Mild, rash and vomitting, 08/26/18) pt states she gets a rash on her chest if she takes ibuprofen latex (Verified Allergy, Mild, rash, 08/26/18) NSAIDS (Non-Steroidal Anti-Inflamma (Verified Adverse Reaction, Unknown, HAD WEIGHTLOSS SURGERY, INTOLERANCE, 04/11/20) lactose (Verified Adverse Reaction, Unknown, 04/11/20) JENS MASTERS DO Apr 18, 2020 09:28
[2020-04-18] MEDS: NALTREXONE 50 MG TAB PO SCH (11:01)
[2020-04-18 16:28] VITALS: BP 123/67
[2020-04-18] MEDS: CARIPRAZINE 3MG CAPSULE (VRAYLAR) PO SCH (20:07)
[2020-04-18] MEDS: RAMELTEON 8 MG TAB (ROZEREM) PO SCH (20:07)
[2020-04-18] MEDS: traZODone 100 MG TAB PO PRN (22:33)
[2020-04-19 06:09] VITALS: BP 109/64
[2020-04-19] MEDS: OXAZEPAM 10 MG CAP PO PRN ×2 (07:31→15:50)
[2020-04-19] MEDS: CALCIUM CARBONATE 500 MG CHEW U/D PO SCH (08:16)
[2020-04-19] MEDS: VITAMIN D 1,000 INTERNATIONAL UNITS TABLET PO SCH (08:20)
[2020-04-19] MEDS: GABAPENTIN 100 MG CAP PO SCH ×3 (08:20→20:42)
[2020-04-19] MEDS: MULTIVITAMINS/MINERALS THERAP 1 TAB PO SCH (08:20)
[2020-04-19] MEDS: NALTREXONE 50 MG TAB PO SCH (08:20)
--- NOTE | 2020-04-19 10:37 | MHIPNPDOC ---
[facility] Progress Note Progress Note DATE OF SERVICE: 04/19/20 HISTORY: The patient's met with today where she reports she wants to be discharged, she would ask any concerns about her home situation and reports that her ex girlfriend is going to take her back for the holidays, the patient reports just wanting to go back for holidays but had previously been reporting suicidal thoughts and bizarre hallucinations to nursing staff and others. She is unable to rectify this stating simply that she wants to go home. VITAL SIGNS: See below. NEW TEST RESULTS: none. CURRENT MEDICATIONS: See below. MENTAL STATUS EXAMINATION: General Appearance: well groomed Build: average Demeanor: average Eye Contact: average Activity: average Behavior: cooperative Speech: clear Mood: Dysthymic Affect: Depressed Thought Process: logical/linear Thought Content (Delusions): none reported Thought Content (Other): Denies suicidal or homicidal thoughts Thought Content (Aggressive): none reported Perception (Hallucinations): none reported Perception (Other): none reported Cognition (Impairment of): none reported Cognition(Intelligence Est.): average Oriented: Oriented times three Insight: fair/poor Judgment: Fair/poor Psychosis: Denies DIAGNOSES: 1. Other bipolar disorder. ASSESSMENT: Likely need to observe over the weekend, adjustment could be part of the presentation or even borderline personality disorder, however given the unstable social situation I am hesitant suddenly changing to a discharge especially with the services available in the interim. MANAGEMENT PLAN: Continue Vraylar 3 mg nightly, Serax 10 mg every 4 hours as needed for anxiety and Rozerem 8 mg nightly, Will continue gabapentin at 100 mg 3 times daily as she reports that it makes her too sedated TIME SPENT: 15 minutes. Vital Signs Vital Signs Date Time Temp Pulse Resp B/P (MAP) Pulse Ox O2 Delivery O2 Flow Rate FiO2 04/19/20 06:09 96.8 60 18 109/64 (79) 99 Room Air Current Medications Current Medications Medications (Trade) Dose Ordered Sig/Eleazar Route PRN Reason Start Time Stop Time Status Last Admin Dose Admin Acetaminophen (Tylenol Tab) 650 mg Q6HP PRN PO HEADACHE or DISCOMFORT 04/12/20 13:15 04/18/20 06:12 Al Hydrox/Mg Hydrox/Simethicone (Mylanta) 30 ml Q4HP PRN PO HEARTBURN/INDIGESTION 04/12/20 13:15 04/13/20 20:17 Calcium Carbonate (Tums) 500 mg DAILY PO 04/12/20 09:00 Cariprazine (Vraylar) 1.5 mg DAILY PO 04/14/20 09:00 04/15/20 16:44 DC 04/15/20 09:45 Cariprazine (Vraylar) 3 mg QHS PO 04/15/20 21:00 04/15/20 16:46 DC Cariprazine (Vraylar) 3 mg QHS PO 04/16/20 21:00 04/18/20 20:07 Gabapentin (Neurontin) 100 mg TID PO 04/12/20 22:45 04/13/20 06:08 DC 04/12/20 23:00 Gabapentin (Neurontin) 100 mg TID PO 04/13/20 09:00 04/12/20 22:39 DC Gabapentin (Neurontin) 100 mg TID PO 04/16/20 16:00 04/19/20 08:20 Gabapentin (Neurontin) 150 mg TID PO 04/16/20 16:00 04/16/20 16:23 DC Gabapentin (Neurontin) 300 mg TID PO 04/13/20 06:15 04/16/20 14:39 DC 04/16/20 09:07 Home Med (Med Rec Complete!) ASDIRECTED XX 04/11/20 19:30 04/11/20 19:20 DC Magnesium Hydroxide (Milk Of Magnesia) 30 ml DAILYPRN PRN PO CONSTIPATION 04/12/20 13:15 04/15/20 15:54 DC Multivitamins (Theragram-M) 1 tab DAILY PO 04/12/20 09:00 04/19/20 08:20 Naltrexone HCl (Revia) 25 mg DAILY PO 04/18/20 09:00 04/19/20 08:20 Oxazepam (Serax) 10 mg Q8HP PRN PO AGITATION 04/15/20 16:45 04/19/20 07:31 Polyethylene Glycol (Miralax) 1 pkt DAILYPRN PRN PO CONSTIPATION 04/15/20 16:00 04/18/20 06:13 Ramelteon (Rozerem) 8 mg QHS PO 04/16/20 21:00 04/18/20 20:07 Simethicone (Mylicon) 80 mg Q6HP PRN PO GAS PAIN 04/14/20 17:45 04/18/20 08:18 Trazodone HCl (Desyrel) 50 mg QHSP PRN PO INSOMNIA 04/12/20 13:15 04/15/20 16:44 DC 04/14/20 21:52 Trazodone HCl (Desyrel) 100 mg QHSP PRN PO INSOMNIA 04/15/20 16:45 04/18/20 22:33 Vitamin D (Vitamin D) 1,000 units DAILY PO 04/12/20 09:00 04/19/20 08:20 Allergies Coded Allergies: amoxicillin (Verified Allergy, Mild, rash, 08/26/18) ibuprofen (Verified Allergy, Mild, rash and vomitting, 08/26/18) pt states she gets a rash on her chest if she takes ibuprofen latex (Verified Allergy, Mild, rash, 08/26/18) NSAIDS (Non-Steroidal Anti-Inflamma (Verified Adverse Reaction, Unknown, HAD WEIGHTLOSS SURGERY, INTOLERANCE, 04/11/20) lactose (Verified Adverse Reaction, Unknown, 04/11/20) JENS MASTERS DO Apr 19, 2020 10:37
[2020-04-19] MEDS: SIMETHICONE 80 MG CHEW TAB PO PRN (12:06)
[2020-04-19] MEDS ORDERED: ONDANSETRON 4 MG TAB PO PRN (13:15)
[2020-04-19 16:51] VITALS: BP 146/65
[2020-04-19] MEDS: CARIPRAZINE 3MG CAPSULE (VRAYLAR) PO SCH (20:42)
[2020-04-19] MEDS: RAMELTEON 8 MG TAB (ROZEREM) PO SCH (20:42)
[2020-04-20 06:16] VITALS: BP 130/70
[2020-04-20] MEDS: OXAZEPAM 10 MG CAP PO PRN ×2 (06:41→15:15)
[2020-04-20] MEDS: GABAPENTIN 100 MG CAP PO SCH ×3 (08:49→20:17)
[2020-04-20] MEDS: VITAMIN D 1,000 INTERNATIONAL UNITS TABLET PO SCH (08:49)
[2020-04-20] MEDS: NALTREXONE 50 MG TAB PO SCH (08:49)
[2020-04-20] MEDS: MULTIVITAMINS/MINERALS THERAP 1 TAB PO SCH (08:49)
[2020-04-20] MEDS: CALCIUM CARBONATE 500 MG CHEW U/D PO SCH (08:50)
[2020-04-20] MEDS: PILL CUTTER 1 EACH XX PRN (08:50)
[2020-04-20] MEDS: ACETAMINOPHEN TAB 650MG DOSE (2X325MG) PO PRN (12:21)
[2020-04-20 16:54] VITALS: BP 136/67
[2020-04-20] MEDS: CARIPRAZINE 3MG CAPSULE (VRAYLAR) PO SCH (20:17)
[2020-04-20] MEDS: RAMELTEON 8 MG TAB (ROZEREM) PO SCH (20:17)
[2020-04-21] MEDS: ACETAMINOPHEN TAB 650MG DOSE (2X325MG) PO PRN (05:39)
[2020-04-21 06:30] VITALS: BP 134/83
[2020-04-21] MEDS: OXAZEPAM 10 MG CAP PO PRN ×2 (07:19→18:45)
[2020-04-21] MEDS ORDERED: FOLIC ACID 1 MG TAB PO SCH (09:00)
[2020-04-21] MEDS: CALCIUM CARBONATE 500 MG CHEW U/D PO SCH (09:00)
[2020-04-21] MEDS: SIMETHICONE 80 MG CHEW TAB PO PRN (09:25)
[2020-04-21] MEDS: PILL CUTTER 1 EACH XX PRN (09:25)
[2020-04-21] MEDS: MULTIVITAMINS/MINERALS THERAP 1 TAB PO SCH (09:25)
[2020-04-21] MEDS: NALTREXONE 50 MG TAB PO SCH (09:26)
[2020-04-21] MEDS: GABAPENTIN 100 MG CAP PO SCH ×3 (09:26→20:11)
[2020-04-21] MEDS: VITAMIN D 1,000 INTERNATIONAL UNITS TABLET PO SCH (09:26)
[2020-04-21] MEDS ORDERED: traZODone 50 MG TAB PO PRN (15:45)
[2020-04-21] MEDS ORDERED: ACETAMINOPHEN TAB 650MG DOSE (2X325MG) PO PRN (15:45)
[2020-04-21] MEDS ORDERED: MOM 30ML SUSPENSION UDC PO PRN (15:45)
[2020-04-21] MEDS ORDERED: LORazepam 2 MG TAB PO PRN (15:45)
[2020-04-21] MEDS ORDERED: MAALOX 30 ML SUSP *UDC PO PRN (15:45)
[2020-04-21] MEDS ORDERED: OLANZapine ORAL DISINTEGRATING TAB 5MG PO PRN (15:45)
[2020-04-21] MEDS ORDERED: THIAMINE 100 MG TAB PO SCH (16:00)
[2020-04-21 16:56] VITALS: BP 121/83
[2020-04-21] MEDS: CARIPRAZINE 3MG CAPSULE (VRAYLAR) PO SCH (20:11)
[2020-04-21] MEDS: RAMELTEON 8 MG TAB (ROZEREM) PO SCH (20:11)
[2020-04-22] MEDS: ACETAMINOPHEN TAB 650MG DOSE (2X325MG) PO PRN (02:16)
[2020-04-22 06:31] VITALS: BP 124/82
[2020-04-22] MEDS: OXAZEPAM 10 MG CAP PO PRN ×2 (06:42→20:28)
[2020-04-22] MEDS: GABAPENTIN 100 MG CAP PO SCH ×3 (08:20→21:16)
[2020-04-22] MEDS: VITAMIN D 1,000 INTERNATIONAL UNITS TABLET PO SCH (08:20)
[2020-04-22] MEDS: SIMETHICONE 80 MG CHEW TAB PO PRN (08:20)
[2020-04-22] MEDS: NALTREXONE 50 MG TAB PO SCH (08:22)
[2020-04-22] MEDS: MULTIVITAMINS/MINERALS THERAP 1 TAB PO SCH (08:23)
[2020-04-22] MEDS: CALCIUM CARBONATE 500 MG CHEW U/D PO SCH (08:45)
[2020-04-22] MEDS ORDERED: MULTIVITAMINS/MINERALS THERAP 1 TAB PO SCH (09:00)
[2020-04-22 14:51] VITALS: BP 117/64
[2020-04-22] MEDS: CARIPRAZINE 3MG CAPSULE (VRAYLAR) PO SCH (21:16)
[2020-04-22] MEDS: RAMELTEON 8 MG TAB (ROZEREM) PO SCH (21:16)
[2020-04-23 06:58] VITALS: BP 124/75
[2020-04-23] MEDS: SIMETHICONE 80 MG CHEW TAB PO PRN (07:25)
[2020-04-23] MEDS: ACETAMINOPHEN TAB 650MG DOSE (2X325MG) PO PRN (07:26)
[2020-04-23] MEDS: MULTIVITAMINS/MINERALS THERAP 1 TAB PO SCH (08:10)
[2020-04-23] MEDS: NALTREXONE 50 MG TAB PO SCH (08:11)
[2020-04-23] MEDS: GABAPENTIN 100 MG CAP PO SCH (08:11)
[2020-04-23] MEDS: PILL CUTTER 1 EACH XX PRN (08:11)
[2020-04-23] MEDS: VITAMIN D 1,000 INTERNATIONAL UNITS TABLET PO SCH (08:11)
[2020-04-23] MEDS: CALCIUM CARBONATE 500 MG CHEW U/D PO SCH (08:15)
[2020-04-23] MEDS: OXAZEPAM 10 MG CAP PO PRN (10:15)
--- NOTE | 2020-04-23 10:20 | MHDSPDOC ---
[facility] Discharge Summary Discharge Summary DATE OF ADMISSION: Apr 12, 2020 at 13:12 DATE OF DISCHARGE: Apr 23, 2020 at 14:05 DISCHARGE DIAGNOSES: Bipolar disorder, current episode mixed Cluster B personality CONSULTANTS INVOLVED:[ None (basic hospitalist screening)] REASON FOR ADMISSION & TREATMENT AND PROGRESS ON THE UNIT : The patient was admitted to the inpatient mental health unit, where she had notable difficulty with mood variation, dysphoria in engaged and irritable behavior. The patient was started cariprazine increased to a total of 3 mg daily, then changed to nightly dosing due to some sedation. She was additionally started on Serax increased to 10 mg twice a day for anxiety which she did well on in tolerated without issue. Her gabapentin was lower due to sedation down to 100 mg 3 times a day from 300 mg 3 times a day, she was initially started on low-dose naltrexone for chronic pain which helped reduce her overall pain and depression. She did well on the unit made some improvement over the next week, she had requested to be discharged on [facility], however due to her recent difficulty with her significant other of which they were breaking up, I deemed it inappropriate to discharge her at that time with poor follow-up due to the holiday. She was observed over the weekend where she did well generally improved she had some difficulty with some mood variation and anxiety, and she reports some unusual hallucinations appear to be redacted quite quickly and were very atypical in nature. These did not emerge for at least 24-48 hours before her discharge. DISCHARGE ASSESSMENT:[improved] Legal status considerations: The patient at the time of discharge did not meet criteria for involuntary admission/extension due to having a [normal] mental status exam, [fair] insight into the situation, They are engaged in the discharge process, as well as being friendly and amenable in behavioral control and havent been engaging in any observed concerning behavior or ideation recently. They decline voluntary extension/admission at this time and must be discharged in good jose, as Im unable to make a case for holding the patient against their will. They may have historical risk factors of admissions and other interactions with psychiatry however, those are not modifiable from a clinical perspective. The patient will need to be discharged in good jose. MENTAL STATUS EXAMINATION ON DISCHARGE: [General: Well dressed with good hygiene Speech: Spontaneous and fluid Thought processes: Linear and logical Thought content: Future orientated Abstract reasoning, and computation: Intact Description of associations: Intact Description of abnormal or psychotic thoughts:Denies any suicidal or homicidal ideation. Denies any auditory or visual hallucinations. Does not appear to be responding to internal stimuli. Does not appear to be endorsing any bizarre or paranoid ideation. Judgment: fair Insight: fair Orientation: Alert and orientated 3 Recent and remote memory: Intact Attention span and concentration: Intact Fund of knowledge: Adequate Mood: "okay" Affect: Euthymic with a full range] PLAN/FOLLOWUP ARRANGEMENTS: Follow up appointments made (PCP and MH in 5 days of D/C date) and safety plan completed. Safety Planning aspects completed prior to discharge [Medication supplies limited to 7 days with 4 refills to prevent accumulation to OD] [Family contact completed, educated on safe practices, instructed on removal and mitigation of dangerous means] [RN reviewed crisis hotline information and other aspects to empower patient to access care in interim before next appointment.] The amount of time spent in the coordination of care for this patient was approximately 30 minutes. Vital Signs/I&Os Vital Signs Date Time Temp Pulse Resp B/P (MAP) Pulse Ox O2 Delivery O2 Flow Rate FiO2 04/23/20 06:58 97.3 64 16 124/75 (91) 97 Room Air Laboratory Data Microbiology Microbiology 04/15/20 Urine Culture - Final, Complete Medications Scheduled Biotin (Biotin) 1 Mg Capsule, 1 MG PO DAILY, (Reported) Calcium Carbonate (Calcium) 500 Mg Tab.chew, 500 MG PO DAILY, (Reported) Cariprazine HCl (Vraylar) 3 Mg Capsule, 3 MG PO QHS for mood for 7 Days, #7 Cholecalciferol (Vitamin D3) (Vitamin D3) 1,000 Unit Tablet, 1,000 UNITS PO DAILY, (Reported) Gabapentin (Gabapentin) 100 Mg Capsule, 100 MG PO TID for pain for 7 Days, #21 Multivitamin,Therapeutic (Thera-Tabs) 1 Each Tablet, 1 TAB PO DAILY, (Reported) Naltrexone HCl (Naltrexone HCl) 50 Mg Tablet, 25 MG PO DAILY for pain for 7 Days, #7 Scheduled PRN Oxazepam (Oxazepam) 10 Mg Capsule, 10 MG PO Q8HP PRN for AGITATION for 14 Days, #21 Allergies Coded Allergies: amoxicillin (Verified Allergy, Mild, rash, 08/26/18) ibuprofen (Verified Allergy, Mild, rash and vomitting, 08/26/18) pt states she gets a rash on her chest if she takes ibuprofen latex (Verified Allergy, Mild, rash, 08/26/18) NSAIDS (Non-Steroidal Anti-Inflamma (Verified Adverse Reaction, Unknown, HAD WEIGHTLOSS SURGERY, INTOLERANCE, 04/11/20) lactose (Verified Adverse Reaction, Unknown, 04/11/20) JENS MASTERS DO Apr 23, 2020 10:20
[2020-04-23] MEDS ORDERED: NALT50TA4 PO (10:31)
[2020-04-23] MEDS ORDERED: VRAY3CAP PO (10:31)
[2020-04-23] MEDS ORDERED: GABA-1171 PO (10:31)
[2020-04-23] MEDS ORDERED: OXAZ10CA3 PO (10:31)
== END 2020-04-23 14:05 | disposition home or self-care (01) | DRG 885 ==
LOC: M ED 14:26 → M ED INP 04-12 13:12 → M PSY 04-12 14:07
PROVIDERS: ADMIT Psychiatry & Neurology Addiction Medicine; ATTEND Psychiatry & Neurology Addiction Medicine
DX: F31.60 Bipolar disorder, current episode mixed, unspecified (principal); Z68.43 Body mass index [BMI] 50.0-59.9, adult; R45.851 Suicidal ideations; Z98.84 Bariatric surgery status; F60.89 Other specific personality disorders; M79.7 Fibromyalgia; E73.9 Lactose intolerance, unspecified; E66.9 Obesity, unspecified; Z88.0 Allergy status to penicillin; Z88.6 Allergy status to analgesic agent; Z87.891 Personal history of nicotine dependence; Z91.040 Latex allergy status; Z79.899 Other long term (current) drug therapy; Z59.0 Homelessness; Z63.0 Problems in relationship with spouse or partner; Z20.828 Contact with and (suspected) exposure to other viral communicable diseases

== ENCOUNTER 2020-04-26 15:39 | Inpatient (IN) | payer MEDICARE, MEDICAID ==
[~2020-04-26] VITALS: Ht 157.5 cm; Wt 121.7 kg
[~2020-04-26 15:39] MED LIST changes: +BIOT1CAP2 PO; +CALC500C16 PO; +D31000TA2 PO; +ESCI10TA16; -ESCI10TA2; +GABA-1171 PO; +NALT50TA4 PO; +OXAZ10CA3 PO; +THERTAB52 PO; +VRAY3CAP PO
[2020-04-26 16:05] LABS: HEMATOCRIT 39.4 % (36.0-47.0); HEMOGLOBIN 12.8 g/dl (12.0-15.5); MEAN CORPUSCULAR HEMOGLOBIN 29.3 pg (27.0-33.0); MEAN CORPUSCULAR HGB CONC 32.5 g/dl (32.0-36.5); MEAN CORPUSCULAR VOLUME 90.2 fl (80.0-96.0); PLATELET COUNT, AUTOMATED 137 10^3/uL (150-450); RED BLOOD COUNT 4.37 10^6/uL (4.00-5.40); WHITE BLOOD COUNT 5.9 10^3/uL (4.0-10.0)
[2020-04-26 16:33] LABS: HCG, SERUM QUALITATIVE NEGATIVE (NEGATIVE)
[2020-04-26 16:40] LABS: RSV AMPLIFICATION NEGATIVE (NEGATIVE)
[2020-04-26] MEDS ORDERED: PHEN-239 PO (16:40)
[2020-04-26 16:42] LABS: ACETAMINOPHEN LEVEL < 2.0 UG/ML (10.0-30.0); ALBUMIN 3.7 GM/DL (3.2-5.2); ALT/SGPT 23 U/L (12-78); BILIRUBIN,DIRECT 0.2 MG/DL (0.0-0.2); BILIRUBIN,TOTAL 0.5 MG/DL (0.2-1.0); BLOOD UREA NITROGEN 9 MG/DL (7-18); CALCIUM LEVEL 9.2 MG/DL (8.5-10.1); CARBON DIOXIDE LEVEL 28 MEQ/L (21-32); CHLORIDE LEVEL 109 MEQ/L (98-107); CREATININE FOR GFR 0.57 MG/DL (0.55-1.30); ETHYL ALCOHOL (ETHANOL) < 0.003 % (0.000-0.010); GLOMERULAR FILTRATION RATE > 60.0 (>60); GLUCOSE, FASTING 84 MG/DL (70-100); POTASSIUM SERUM 3.7 MEQ/L (3.5-5.1); SALICYLATE LEVEL < 1.7 MG/DL (5.0-30.0); SODIUM LEVEL 142 MEQ/L (136-145); TOTAL PROTEIN 6.5 GM/DL (6.4-8.2)
[2020-04-26 18:19] LABS: AMPHETAMINES LEVEL URINE NEGATIVE (NEGATIVE); BARBITURATES URINE NEGATIVE (NEGATIVE); BENZODIAZEPINES URINE NEGATIVE (NEGATIVE); CANNABINOIDS URINE POSITIVE (NEGATIVE); COCAINE METABOLITE URINE NEGATIVE (NEGATIVE); METHADONE URINE NEGATIVE (NEGATIVE); OPIATES URINE NEGATIVE (NEGATIVE); PHENCYCLIDINE URINE NEGATIVE (NEGATIVE)
[2020-04-26] MEDS ORDERED: VRAY3CAP PO (18:40)
[2020-04-26] MEDS ORDERED: GABA-1171 PO (18:40)
[2020-04-26] MEDS ORDERED: NALT50TA4 PO (18:40)
[2020-04-26] MEDS ORDERED: OXAZ10CA3 PO (18:40)
[2020-04-26] MEDS ORDERED: MOM 30ML SUSPENSION UDC PO PRN (19:30)
[2020-04-26 20:36] VITALS: BP 146/92
[2020-04-26] MEDS: CARIPRAZINE 3MG CAPSULE (VRAYLAR) PO SCH (21:27)
[2020-04-26] MEDS: GABAPENTIN 100 MG CAP PO SCH (21:27)
[2020-04-27] MEDS: ACETAMINOPHEN TAB 650MG DOSE (2X325MG) PO PRN (06:39)
[2020-04-27 06:42] VITALS: BP 137/65
[2020-04-27] MEDS: OXAZEPAM 10 MG CAP PO PRN (07:20)
--- NOTE | 2020-04-27 08:03 | ECGEPIP ---
[facility] - ED Test Date: 2020-04-26 Pat Name: MIR MARMOLEJO Department: Room: - Gender: Female Hourly Sign Language Interpreter: : 1995 Requested By: Jazmín Orellana Order Number: [id number] Reading MD: Jazmín Orellana Measurements Intervals [place] Rate: 57 P: 14 VA: 142 QRS: 19 QRSD: 93 T: 14 QT: 425 QTc: 415 Interpretive Statements SINUS BRADYCARDIA Electronically Signed on 04-27-2020 8:03:28 EST by Jazmín Orellana
[2020-04-27] MEDS: MULTIVITAMINS/MINERALS THERAP 1 TAB PO SCH (09:31)
[2020-04-27] MEDS: VITAMIN D 1,000 INTERNATIONAL UNITS TABLET PO SCH (09:31)
[2020-04-27] MEDS: CALCIUM CARBONATE 500 MG CHEW U/D PO SCH (09:31)
[2020-04-27] MEDS: NALTREXONE 50 MG TAB PO SCH (09:31)
[2020-04-27] MEDS: GABAPENTIN 100 MG CAP PO SCH ×3 (09:31→20:20)
--- NOTE | 2020-04-27 17:10 | HPEPDOC ---
[facility] Medical History & Physical Date of Admission Apr 27, 2020 Date of Service: Apr 27, 2020 History and Physical Chief complaint: Presented to the emergency room with confusion and feeling out of it History of present illness: Patient is a [age] female who presented to the emergency room after she reported that she was having confusion and feeling out of it. Patient was admitted to inpatient mental health unit under the care of psychiatry. Hospitalist service was called for medical screening evaluation. Patient has reported a ford positive review of system. Past Medical History: Diagnosed with hypertension but doesn't take any medications History of NICKO on CPAP in the past but has not required it since weight loss after bariatric surgery Fibromyalgia Reported low blood glucose Past Surgical History: Gastric bypass surgery 2 Narendra repair 2 Tonsillectomy and adenoidectomy Cholecystectomy Allergies: See below Medications: See below Family History: - Mother with a history of renal cancer and father with a history of prostate cancer Social History: - Denies the use of alcohol or illicit drugs; patient quit smoking 2 years ago - Denies recent travel or sick contacts - Lives with ex-partner - Occupation; patient reports that 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 Review of Systems: 10 point review of systems complete, all negative otherwise stated in HPI Physical exam: - Vitals: BP [137/65], HR [74], RR [20], Sat [100%RA], Temp [97.6F] - General: Sitting up in chair, No acute distress, Speaking in full sentences, AAOx3 - HEENT: NC, AT, PERRLA - CVS: RRR, +S1S2 - Lungs: Fair air entry bilaterally, No appreciable wheezing / rales / rhonchi - Abdomen: Soft, Non-distended, Non-tender, Morbid obesity - Extremities: No lower extremity edema, No calf tenderness - Neuro: No focal motor or sensory deficit - Skin: No visible rashes Labs: See below Imaging: See below EKG: See below Assessment and Plan: Feeling out of it / Un-specified mood disorder - Patient has been admitted to the inpatient mental health unit under the care of psychiatry - Currently being managed by psychiatry Hx of HTN - SBP well controlled - Currently not on medications NICKO - s/p CPAP after weight loss Fibromyalgia DVT prophylaxis - Will c/w early ambulation Female inventory administrator was present throughout the duration of this history and physical examination Thank you for this consultation; hospitalist service will sign off, please re- consult as needed Vital Signs Vital Signs Date Time Temp Pulse Resp B/P (MAP) Pulse Ox O2 Delivery O2 Flow Rate FiO2 04/27/20 06:42 97.6 74 20 137/65 (89) 100 Room Air Laboratory Data Labs 24H Laboratory Tests 2 04/26/20 17:46: Urine Opiates Screen NEGATIVE, Urine Methadone Screen NEGATIVE, Urine Barbiturates Screen NEGATIVE, Urine Phencyclidine Screen NEGATIVE, Urine Amphetamines Screen NEGATIVE, Urine Benzodiazepines Screen NEGATIVE, Urine Cocaine Metabolite Screen NEGATIVE, Urine Cannabinoids Screen POSITIVEH Home Medications Scheduled Biotin (Biotin) 1 Mg Capsule, 1 MG PO DAILY Calcium Carbonate (Calcium) 500 Mg Tab.chew, 500 MG PO DAILY Cariprazine HCl (Vraylar) 3 Mg Capsule, 3 MG PO QHS Cholecalciferol (Vitamin D3) (Vitamin D3) 1,000 Unit Tablet, 1,000 UNITS PO DAILY Gabapentin (Gabapentin) 100 Mg Capsule, 100 MG PO TID Multivitamin,Therapeutic (Thera-Tabs) 1 Each Tablet, 1 TAB PO DAILY Naltrexone HCl (Naltrexone HCl) 50 Mg Tablet, 50 MG PO DAILY Scheduled PRN Oxazepam (Oxazepam) 10 Mg Capsule, 10 MG PO Q8H PRN for AGITATION Allergies Coded Allergies: amoxicillin (Verified Allergy, Mild, rash, 08/26/18) ibuprofen (Verified Allergy, Mild, rash and vomitting, 08/26/18) pt states she gets a rash on her chest if she takes ibuprofen latex (Verified Allergy, Mild, rash, 08/26/18) NSAIDS (Non-Steroidal Anti-Inflamma (Verified Adverse Reaction, Unknown, HAD WEIGHTLOSS SURGERY, INTOLERANCE, 04/11/20) lactose (Verified Adverse Reaction, Unknown, 04/11/20) VERENICE BOSTON MD Apr 27, 2020 17:10
[2020-04-27] MEDS: CARIPRAZINE 3MG CAPSULE (VRAYLAR) PO SCH (20:20)
--- NOTE | 2020-04-27 20:41 | MHHPEPDOC ---
[facility] History & Physical History and Physical DATE OF ADMISSION: Apr 26, 2020 at 19:29 LEGAL STATUS AT ADMISSION: 9.39 History of Present Illness HISTORY OF THE PRESENT ILLNESS: As per ED report: "Reason for Referral Pt was brought to the ED by EMS due to possible OD? It was suspected pt had OD on her medication due to previously voicing SI earlier today and wouldn't respond staff. According to Dr. Ramesh, all her medication was accounted for and does not believe she ingested any medication. Chief Complaint pt states, "I was feeling suicidal with a plan to OD earlier today, but I don't feel that way now." She was recently discharged from [facility] on 04/23/20 and feels it was too early, but never told anyone. Pt reports she's still having difficulty sleeping which is influencing her mood. States she is still residing with her ex GF and family which she identifies as a "suicidal trigger." She reports feeling significant pressure "to do better and I just can't." States ex GF continues to pressure her to get a job and pt does not believe she can do it. Pt is alert oriented x4 currently, but admits her memory is very poor and wasn't able to respond to staff upon arrival. She notes this being a chronic issue. She suspects it's due to her Bi-polar Disorder? Additionally, pt reports having VH. She describes VH as "bugs crawling everywhere last night." She notes biting of her nail while in the ED due to believing something was under the nail. Psychiatric Review of Systems Depression (2 or more weeks): insomnia for approximately 3 day, she stopped taking her meds after she left [facility]. Suicidal thoughts Estrellita (4 or more days of): decreased need for sleep. She thinks she was manic on the and the Psychosis: paranoia---she says she had couple of delusions while she was at the ED and she says she kept seeing the same person while at the Ed that kept coming in to talk to her and walking back, she felt she had a worm under her nail and feels as if someone is watching her. PTSD: history of trauma, nightmares and flashbacks, hypervigilance Anxiety: situational anxiety. She had about 6 panic attacks since sh was discharged on the . Anxiety/ 6 months or more of: difficulty concentrating, irritability Past Psychiatric History Previous Psychiatric Diagnosis: Bipolar recently diagnosed by Dr. Kirk Previous Psychiatric Admissions: She was discharged on 04/23 from [facility], she was hospitalized here for 12 days Suicide Attempts: Denies. She had SI b but no plan. Psychiatric Follow-up: PCP/therapist. [facility] Psychiatric medications: Tried multiple different medications all of which are ineffective including Cymbalta, Abilify and others. She was recently started on Vraylar by Dr. Kirk but she went home and apparently she was not compliant with her medications Past Medical History Medical Problems Gastric bypass Family Medical/Psychiatric HX Psychiatric Disorders: Yes Addiction: No (Bipolar) Suicide Attemps/Completions: No Addiction History denies Social History ( information obtained from previous record) Abuse/Trauma:Reports a history of trauma,In early life Current Living Situation: Lives in a rented apartment Education: Graduate high school. Employment: Employed at [employer]. Social Support: Supported by friends. Legal: None noted. Marital: Several children, partner of 3 years. Mental Status Examination Mental Status Examination General Appearance: well groomed Build: overweight Demeanor: average, slightly suspicious Eye Contact: average Activity: average Behavior: cooperative Speech: clear Mood: depressed/anxious Affect: constricted Thought Process: logical/linear Thought Content (Delusions): She reports paranoid delusions, she says she feels as if someone is constantly watching her. When she sees herself in the mirror, she sees as if her face is changing Thought Content (Other): Admits having suicidal thoughts, she has images in her mind about "different ways to ", like accidents, like killing herself by cutting or OD or jumping into traffic or jumping off the bridge. She has had thoughts about harming other people, about her ex, hurting her in any posible way, but she says she doesn't have thoughts about killing her. she says these thoughts about hurting her ex girlfriend are fleeting. Thought Content (Aggressive): please read above Perception (Hallucinations): She reports seeing the distorted image of her face when she looks at herself on the mirror Perception (Other): none reported Cognition (Impairment of): none reported Cognition(Intelligence Est.): average Oriented: Oriented times three Insight: fair Judgment: Fair Psychosis: Denies Assement/Plan Assessment She was recently diagnosed with bipolar disorder but she uses marijuana and has delusions, illusions and hallucinations. this could be secondary to her ma rijuana abuse, this substance could be laced with other drugs and the substance abuse could be contributing to her illness. She has a h/o post depression, severe depressive episodes and multiple suicide attempts in the past. Problem List Problems: (1) Bipolar 1 disorder, mixed (2) Substance abuse ( marijuana) (3) R/O substance induced psychosis Initial Treatment Plan 1. Patient was admitted on a [9.39] status. 2. Complete history was obtained. 3. With patients permission, family will be contacted and database will be expanded. 4. Patients medication regimen will be reviewed and changed accordingly. 5. Patient will be provided with protected environment. 6. Patient will be treated with individual, group, and milieu therapies. 7. Patient will receive supportive psych-education. 8. Discharge planning will commence immediately. 9. Outpatient follow-up treatment will be strongly recommended. 10. The initial treatment plan will focus initially on: * Depression. * anxiety * Risk for suicide. ESTIMATED LENGTH OF STAY: 5-7 days TIME SPENT COUNSELING AND COORDINATING INITIAL CARE: 45 minutes. Vital Signs Vital Signs Date Time Temp Pulse Resp B/P (MAP) Pulse Ox O2 Delivery O2 Flow Rate FiO2 04/27/20 06:42 97.6 74 20 137/65 (89) 100 Room Air Laboratory Data 24H Labs Laboratory Tests 2 04/26/20 15:52: Nucleated Red Blood Cells % (auto) 0.0, Anion Gap 5L, Glomerular Filtration Rate > 60.0, Calcium Level 9.2, Total Bilirubin 0.5, Direct Bilirubin 0.2, Aspartate Amino Transf (AST/SGOT) 15, Alanine Aminotransferase (ALT/SGPT) 23, Alkaline Phosphatase 84, Total Protein 6.5, Albumin 3.7, Albumin/Globulin Ratio 1.3, Thyroid Stimulating Hormone (TSH) 1.010, Human Chorionic Gonadotropin, Qual NEGATIVE, Salicylates Level < 1.7L, Acetaminophen Level < 2.0L, Ethyl Alcohol Level < 0.003, Coronavirus (COVID-19)(PCR) NEGATIVE, Influenza Type A (RT-PCR) NEGATIVE, Influenza Type B (RT-PCR) NEGATIVE, Respiratory Syncytial Virus (PCR) NEGATIVE 04/26/20 17:46: Urine Opiates Screen NEGATIVE, Urine Methadone Screen NEGATIVE, Urine Barbiturates Screen NEGATIVE, Urine Phencyclidine Screen NEGATIVE, Urine Amphetamines Screen NEGATIVE, Urine Benzodiazepines Screen NEGATIVE, Urine Cocaine Metabolite Screen NEGATIVE, Urine Cannabinoids Screen POSITIVEH CBC/BMP Laboratory Tests 04/26/20 15:52 Medications Scheduled Biotin (Biotin) 1 Mg Capsule, 1 MG PO DAILY, (Reported) Calcium Carbonate (Calcium) 500 Mg Tab.chew, 500 MG PO DAILY, (Reported) Cariprazine HCl (Vraylar) 3 Mg Capsule, 3 MG PO QHS, (Reported) Cholecalciferol (Vitamin D3) (Vitamin D3) 1,000 Unit Tablet, 1,000 UNITS PO DAILY, (Reported) Gabapentin (Gabapentin) 100 Mg Capsule, 100 MG PO TID, (Reported) Multivitamin,Therapeutic (Thera-Tabs) 1 Each Tablet, 1 TAB PO DAILY, (Reported) Naltrexone HCl (Naltrexone HCl) 50 Mg Tablet, 50 MG PO DAILY, (Reported) Scheduled PRN Oxazepam (Oxazepam) 10 Mg Capsule, 10 MG PO Q8H PRN for AGITATION, (Reported) Allergies Coded Allergies: amoxicillin (Verified Allergy, Mild, rash, 08/26/18) ibuprofen (Verified Allergy, Mild, rash and vomitting, 08/26/18) pt states she gets a rash on her chest if she takes ibuprofen latex (Verified Allergy, Mild, rash, 08/26/18) NSAIDS (Non-Steroidal Anti-Inflamma (Verified Adverse Reaction, Unknown, HAD WEIGHTLOSS SURGERY, INTOLERANCE, 04/11/20) lactose (Verified Adverse Reaction, Unknown, 04/11/20) A-FIB/CHADSVASC A-FIB History Current/History of A-Fib/PAF?: No Current PO Anticoag Therapy: No Age/Risk Factor Scoring CHADSVASC: CHADSVASC Response (Comments) Value Age Risk Factor Age < 65 years old 0 Gender Risk Factor Female 1 Hx of CHF No 0 Hx of HTN No 0 Hx of Stroke/TIA/or VTE No 0 Hx of Diabetes No 0 Hx of Vascular Disease No 0 Total 1 Treatment Treatment ordered: NONE TARUN MANNING MD Apr 27, 2020 15:36
[2020-04-28] MEDS: ACETAMINOPHEN TAB 650MG DOSE (2X325MG) PO PRN ×2 (08:15→21:42)
[2020-04-28] MEDS: VITAMIN D 1,000 INTERNATIONAL UNITS TABLET PO SCH (08:15)
[2020-04-28] MEDS: NALTREXONE 50 MG TAB PO SCH (08:15)
[2020-04-28] MEDS: GABAPENTIN 100 MG CAP PO SCH ×3 (08:15→21:18)
[2020-04-28] MEDS: MULTIVITAMINS/MINERALS THERAP 1 TAB PO SCH (08:15)
[2020-04-28] MEDS: CALCIUM CARBONATE 500 MG CHEW U/D PO SCH (08:17)
[2020-04-28] MEDS: OXAZEPAM 10 MG CAP PO PRN (14:35)
[2020-04-28 18:00] VITALS: BP 118/76
--- NOTE | 2020-04-28 19:08 | MHIPNPDOC ---
[facility] Progress Note Progress Note DATE OF SERVICE: 04/28/20 HISTORY: "Reason for Referral Pt was brought to the ED by EMS due to possible OD? It was suspected pt had OD on her medication due to previously voicing SI earlier today and wouldn't respond staff. According to Dr. Ramehs, all her medication was accounted for and does not believe she ingested any medication. Chief Complaint pt states, "I was feeling suicidal with a plan to OD earlier today, but I don't feel that way now." She was recently discharged from [facility] on 04/23/20 and feels it was too early, but never told anyone. Pt reports she's still having difficulty sleeping which is influencing her mood. States she is still residing with her ex GF and family which she identifies as a "suicidal trigger." She reports feeling significant pressure "to do better and I just can't." States ex GF continues to pressure her to get a job and pt does not believe she can do it. Pt is alert oriented x4 currently, but admits her memory is very poor and wasn't able to respond to staff upon arrival. She notes this being a chronic issue. She suspects it's due to her Bi-polar Disorder? Additionally, pt reports having VH. She describes VH as "bugs crawling everywhere last night." She notes biting of her nail while in the ED due to believing something was under the nail. VITAL SIGNS: See below. NEW TEST RESULTS: See below CURRENT MEDICATIONS: See below. MENTAL STATUS EXAMINATION: General Appearance: well groomed, good hygiene Build: overweight Demeanor: average Eye Contact: average Activity: average Behavior: cooperative Speech: clear Mood: "More anxious today" ( Anxiety has been a 9/10, lately it's jude a 10 and sometimes it breaks the scale, when at home)----Depression is a 7/10 today but s he feels more anxious than depressed Affect: still constricted Thought Process: logical/linear Thought Content (Delusions): She reports paranoid delusions, she says she feels as if someone is constantly watching her. When she sees herself in the mirror, she sees as if her face is changing and she sees herself getting bigger and bigger. Thought Content (Other): Thought Content (Aggressive): please read above Perception (Hallucinations): She says she can't tell, she doesn't know if all the people here are real or not. Perception (Other): She saw herself getting bigger when she looked at herself in the mirror today. Cognition (Impairment of): she says she can't remember a lot from her recent past Cognition(Intelligence Est.): average Oriented: Oriented times three Insight: fair Judgment: Fair Psychosis: She reports distorted images of herself when she sees herself on the mirror and she feels that her room is brighter, as if it has more light in it Diagnoses: (1) Bipolar 1 disorder, mixed (2) Substance abuse ( marijuana) (3) R/O substance induced psychosis Assessment She says now that she feels as if the medications are causing her delusions and illusions, which is not congruent with reality because when she was discharged, on the 28, she was fine, according to previous records. She uses marijuana but she is not insightful about the possibility of it being laced with something that could be causing those perceptual distortions. she wants get well but she doesn't realize it takes time. she tells me her mother told her that maybe we should try latuda because her mother has had a good response to it. Discussed with the patient we will have to cross taper Vraylar and Latuda because she can't stop taking Vraylar abruptly. Will decrease Vraylar to 1.5 mgs PO QHS ( tonight) and she will start Latuda 20 mgs PO QAM with meals tomorrow morning MANAGEMENT PLAN: As above TIME SPENT: 15 minutes. Vital Signs Vital Signs Date Time Temp Pulse Resp B/P (MAP) Pulse Ox O2 Delivery O2 Flow Rate FiO2 04/28/20 10:35 Room Air 04/27/20 06:42 97.6 74 20 137/65 (89) 100 Current Medications Current Medications Medications (Trade) Dose Ordered Sig/Eleazar Route PRN Reason Start Time Stop Time Status Last Admin Dose Admin Acetaminophen (Tylenol Tab) 650 mg Q6HP PRN PO HEADACHE or DISCOMFORT 04/26/20 19:30 04/28/20 08:15 Al Hydrox/Mg Hydrox/Simethicone (Mylanta) 30 ml Q4HP PRN PO HEARTBURN/INDIGESTION 04/26/20 19:30 Calcium Carbonate (Tums) 500 mg DAILY PO 04/27/20 09:00 04/27/20 09:31 Cariprazine (Vraylar) 3 mg QHS PO 04/26/20 21:00 04/27/20 20:20 Gabapentin (Neurontin) 100 mg TID PO 04/26/20 21:00 04/28/20 15:52 Home Med (Med Rec Complete!) ASDIRECTED XX 04/26/20 18:45 04/26/20 18:46 DC Magnesium Hydroxide (Milk Of Magnesia) 30 ml DAILYPRN PRN PO CONSTIPATION 04/26/20 19:30 Multivitamins (Theragram-M) 1 tab DAILY PO 04/27/20 09:00 04/28/20 08:15 Naltrexone HCl (Revia) 50 mg DAILY PO 04/27/20 09:00 04/28/20 08:15 Oxazepam (Serax) 10 mg Q8H PRN PO AGITATION 04/27/20 06:45 04/28/20 14:35 Trazodone HCl (Desyrel) 50 mg QHSP PRN PO INSOMNIA 04/26/20 19:30 Vitamin D (Vitamin D) 1,000 units DAILY PO 04/27/20 09:00 04/28/20 08:15 Allergies Coded Allergies: amoxicillin (Verified Allergy, Mild, rash, 08/26/18) ibuprofen (Verified Allergy, Mild, rash and vomitting, 08/26/18) pt states she gets a rash on her chest if she takes ibuprofen latex (Verified Allergy, Mild, rash, 08/26/18) NSAIDS (Non-Steroidal Anti-Inflamma (Verified Adverse Reaction, Unknown, HAD WEIGHTLOSS SURGERY, INTOLERANCE, 04/11/20) lactose (Verified Adverse Reaction, Unknown, 04/11/20) TARUN MANNING MD Apr 28, 2020 18:30
[2020-04-28] MEDS ORDERED: PILL CUTTER 1 EACH XX PRN (19:15)
[2020-04-28] MEDS ORDERED: CARIPRAZINE 3MG CAPSULE (VRAYLAR) PO SCH (21:00)
[2020-04-28] MEDS: CARIPRAZINE 1.5MG CAPSULE (VRAYLAR) PO SCH (21:18)
[2020-04-28] MEDS ORDERED: OLANZapine ORAL DISINTEGRATING TAB 5MG PO ONE (21:39)
[2020-04-29] MEDS: OXAZEPAM 10 MG CAP PO PRN ×2 (06:49→21:04)
[2020-04-29] MEDS: CALCIUM CARBONATE 500 MG CHEW U/D PO SCH (09:00)
[2020-04-29] MEDS: VITAMIN D 1,000 INTERNATIONAL UNITS TABLET PO SCH (09:54)
[2020-04-29] MEDS: GABAPENTIN 100 MG CAP PO SCH ×3 (09:54→21:04)
[2020-04-29] MEDS: NALTREXONE 50 MG TAB PO SCH (09:54)
[2020-04-29] MEDS: MULTIVITAMINS/MINERALS THERAP 1 TAB PO SCH (09:54)
[2020-04-29] MEDS: LURASIDONE 20 MG TAB (LATUDA) PO SCH (09:55)
[2020-04-29 17:56] VITALS: BP 138/82
--- NOTE | 2020-04-29 18:05 | MHIPNPDOC ---
[facility] Progress Note Progress Note DATE OF SERVICE: 04/29/20 HISTORY: "Reason for Referral Pt was brought to the ED by EMS due to possible OD? It was suspected pt had OD on her medication due to previously voicing SI earlier today and wouldn't respond staff. According to Dr. Ramesh, all her medication was accounted for and does not believe she ingested any medication. Chief Complaint pt states, "I was feeling suicidal with a plan to OD earlier today, but I don't feel that way now." She was recently discharged from [facility] on 04/23/20 and feels it was too early, but never told anyone. Pt reports she's still having difficulty sleeping which is influencing her mood. States she is still residing with her ex GF and family which she identifies as a "suicidal trigger." She reports feeling significant pressure "to do better and I just can't." States ex GF continues to pressure her to get a job and pt does not believe she can do it. Pt is alert oriented x4 currently, but admits her memory is very poor and wasn't able to respond to staff upon arrival. She notes this being a chronic issue. She suspects it's due to her Bi-polar Disorder? Additionally, pt reports having VH. She describes VH as "bugs crawling everywhere last night." She notes biting of her nail while in the ED due to believing something was under the nail. VITAL SIGNS: See below. NEW TEST RESULTS: See below CURRENT MEDICATIONS: See below. MENTAL STATUS EXAMINATION: General Appearance: well groomed, good hygiene Build: overweight Demeanor: calm, cooperative Eye Contact: avoidant Activity: average, calm Behavior: cooperative Speech: clear, spontaneous in r/t/v Mood: "less anxious for now" Thought Process: not fully coherent. She says she is not sure if she should trust what she sees or what she hears because her girlfriend has told her a different story than hers. Thought Content (Delusions): She continues to feel paranoid about ex girlfriend. Thought Content (Other): Thought Content (Aggressive): please read above Perception (Hallucinations): She says she can't tell, she doesn't know if all the people here are real or not, if what she hears is real or not. She says she hears some voices calling her name but they are not commanding in nature. Perception (Other): She says she saw herself in the mirror and it looked as if she was crying but she was not. Cognition (Impairment of): she says she can't remember a lot from her recent past Cognition(Intelligence Est.): average Oriented: Oriented times three Insight: fair Judgment: Fair Psychosis: She reports distorted images of herself when she sees herself on the mirror and she feels that her room is brighter, as if it has more light in it Diagnoses: (1) Bipolar 1 disorder, mixed (2) Substance abuse ( marijuana) (3) R/O substance induced psychosis Assessment She says she heard people calling her name and this happened 30 minutes ago, she has experienced this 4x today. She says yesterday nobody was calling her name, yesterday she saw a man. will continue cross tapering Latuda and Vraylar. She took 20 mgs of latuda today in a.m and last night she took Vraylar 1.5 mgs. MANAGEMENT PLAN: As above TIME SPENT: 15 minutes. Vital Signs Vital Signs Date Time Temp Pulse Resp B/P (MAP) Pulse Ox O2 Delivery O2 Flow Rate FiO2 04/29/20 08:01 Room Air 04/28/20 18:00 97.9 72 15 118/76 (90) 100 Current Medications Current Medications Medications (Trade) Dose Ordered Sig/Eleazar Route PRN Reason Start Time Stop Time Status Last Admin Dose Admin Acetaminophen (Tylenol Tab) 650 mg Q6HP PRN PO HEADACHE or DISCOMFORT 04/26/20 19:30 04/28/20 21:42 Al Hydrox/Mg Hydrox/Simethicone (Mylanta) 30 ml Q4HP PRN PO HEARTBURN/INDIGESTION 04/26/20 19:30 Calcium Carbonate (Tums) 500 mg DAILY PO 04/27/20 09:00 04/27/20 09:31 Cariprazine (Vraylar) 1.5 mg QHS PO 04/28/20 21:00 04/28/20 21:09 DC Cariprazine (Vraylar) 1.5 mg QHS PO 04/28/20 21:00 04/28/20 21:18 Cariprazine (Vraylar) 1.5 mg QHS PO 04/29/20 21:00 04/28/20 21:09 DC Cariprazine (Vraylar) 3 mg QHS PO 04/26/20 21:00 04/28/20 18:58 DC 04/27/20 20:20 Gabapentin (Neurontin) 100 mg TID PO 04/26/20 21:00 04/29/20 16:10 Home Med (Med Rec Complete!) ASDIRECTED XX 04/26/20 18:45 04/26/20 18:46 DC Lurasidone HCl (Latuda) 20 mg DAILY@08 PO 04/29/20 08:00 04/29/20 09:55 Magnesium Hydroxide (Milk Of Magnesia) 30 ml DAILYPRN PRN PO CONSTIPATION 04/26/20 19:30 Multivitamins (Theragram-M) 1 tab DAILY PO 04/27/20 09:00 04/29/20 09:54 Naltrexone HCl (Revia) 50 mg DAILY PO 04/27/20 09:00 04/29/20 09:54 Oxazepam (Serax) 10 mg Q8H PRN PO AGITATION 04/27/20 06:45 04/29/20 06:49 Trazodone HCl (Desyrel) 50 mg QHSP PRN PO INSOMNIA 04/26/20 19:30 Vitamin D (Vitamin D) 1,000 units DAILY PO 04/27/20 09:00 04/29/20 09:54 Allergies Coded Allergies: amoxicillin (Verified Allergy, Mild, rash, 08/26/18) ibuprofen (Verified Allergy, Mild, rash and vomitting, 08/26/18) pt states she gets a rash on her chest if she takes ibuprofen latex (Verified Allergy, Mild, rash, 08/26/18) NSAIDS (Non-Steroidal Anti-Inflamma (Verified Adverse Reaction, Unknown, HAD WEIGHTLOSS SURGERY, INTOLERANCE, 04/11/20) lactose (Verified Adverse Reaction, Unknown, 04/11/20) TARUN MANNING MD Apr 29, 2020 18:05
[2020-04-29] MEDS ORDERED: CARIPRAZINE 1.5MG CAPSULE (VRAYLAR) PO SCH (21:00)
[2020-04-29] MEDS: CARIPRAZINE 1.5MG CAPSULE (VRAYLAR) PO SCH (21:04)
[2020-04-30 06:06] VITALS: BP 158/87
[2020-04-30] MEDS: OXAZEPAM 10 MG CAP PO PRN ×2 (07:33→19:44)
[2020-04-30] MEDS: LURASIDONE 20 MG TAB (LATUDA) PO SCH (07:59)
[2020-04-30] MEDS: NALTREXONE 50 MG TAB PO SCH (08:00)
[2020-04-30] MEDS: GABAPENTIN 100 MG CAP PO SCH ×3 (08:00→21:29)
[2020-04-30] MEDS: VITAMIN D 1,000 INTERNATIONAL UNITS TABLET PO SCH (08:00)
[2020-04-30] MEDS: MULTIVITAMINS/MINERALS THERAP 1 TAB PO SCH (08:00)
[2020-04-30] MEDS: CALCIUM CARBONATE 500 MG CHEW U/D PO SCH (08:02)
[2020-04-30] MEDS ORDERED: chlorproMAZINE 25 MG TABLET PO ONE (11:15)
[2020-04-30] MEDS: ACETAMINOPHEN TAB 650MG DOSE (2X325MG) PO PRN (15:41)
[2020-04-30 18:01] VITALS: BP 152/90
--- NOTE | 2020-04-30 18:16 | CR ---
CONSULTATION DATE: 04/30/2020 CHIEF COMPLAINT: Chest pain. HISTORY OF PRESENT ILLNESS: Hospitalist was called for evaluation of chest pain. The patient is a 24-year-old with a history of fibromyalgia. She has a history of intermittent chest pain in the past with noncardiac features. She again has noncardiac-sounding chest pain. She has chest pain that is discretely located in the left sternal border, varies with respirations and easily reproducible when palpating her chest. PHYSICAL EXAMINATION: VITAL SIGNS: Stable. LUNGS: Clear. HEART: Regular rate and rhythm. ABDOMEN: Soft, nontender. CHEST: Left sternal border tender to palpate. Minimal palpation reproduces her pain. EKG is normal, sinus bradycardia unchanged from previous. IMPRESSION: Chest wall pain. PLAN: Recommend reassurance, heating pad (apparently unavailable in the Mental Health Unit). Topical analgesics (the patient says she is allergic to Shlomo-Dikcerson so we will see if there is some other topical analgesic balm available for her).
[2020-04-30] MEDS: CARIPRAZINE 1.5MG CAPSULE (VRAYLAR) PO SCH (21:29)
[2020-04-30] MEDS: LIDOCAINE 5% (LIDODERM) PATCH TD SCH (21:58)
[2020-04-30] MEDS: traZODone 50 MG TAB PO PRN (22:56)
--- NOTE | 2020-04-30 23:54 | ECGEPIP ---
[facility] Test Date: 2020-04-30 Pat Name: MIR MARMOLEJO Department: Room: [place] [address] Gender: Female Vibrating Screen Operator: CECELIA : 1995 Requested By: Kale Barillas Order Number: [id number] Reading MD: Hector Kuo Measurements Intervals [place] Rate: 54 P: 11 [place]: 159 QRS: 21 QRSD: 92 T: 18 QT: 442 QTc: 422 Interpretive Statements SINUS BRADYCARDIA Last tracing on 04/26/20, 15:52 No remarkable changes Electronically Signed on 04-30-2020 23:54:03 EST by Hector Kuo
[2020-05-01 06:23] VITALS: BP 152/85
[2020-05-01] MEDS: **NOTE PATIENT COMMENT** MISC XX SCH (08:00)
[2020-05-01] MEDS: LURASIDONE 20 MG TAB (LATUDA) PO SCH (08:56)
[2020-05-01] MEDS: VITAMIN D 1,000 INTERNATIONAL UNITS TABLET PO SCH (08:56)
[2020-05-01] MEDS: NALTREXONE 50 MG TAB PO SCH (08:56)
[2020-05-01] MEDS: OXAZEPAM 10 MG CAP PO PRN ×2 (08:56→19:38)
[2020-05-01] MEDS: MULTIVITAMINS/MINERALS THERAP 1 TAB PO SCH (08:56)
[2020-05-01] MEDS: GABAPENTIN 100 MG CAP PO SCH ×3 (08:56→20:36)
[2020-05-01] MEDS: CALCIUM CARBONATE 500 MG CHEW U/D PO SCH (09:00)
--- NOTE | 2020-05-01 15:48 | MHIPNPDOC ---
[facility] Progress Note Progress Note DATE OF SERVICE: 04/30/2020 CHIEF COMPLAINT: "" HISTORY: This is a -year-old who was Chart was reviewed. Patient denies auditory and visual hallucination. She denies suicidal and homicidal ideation. Patient reports that she has been on the following medications: OBJECTIVE: VITAL SIGNS: See below. NEW TEST RESULTS: See below. CURRENT MEDICATIONS: See below. MENTAL STATUS EXAMINATION: Patient is a -year old , who is Speech: Is clear with normal tone and volume. Patient made good eye contact. Motor activity: Normal. Psychomotor activity. No psychomotor retardation. Thought processes : Linear, logical and tangential. Thought content: Inappropriate . Description of abnormal psychotic thoughts: . Judgment: . Insight: [very limited, good, fair. poor]. Orientation: . Recent and remote memory: . Attention span and concentration: . Language: . Fund of knowledge: . Mood: . Affect: . DIAGNOSES: 1. . 2. . 3. . ASSESSMENT: MANAGEMENT PLAN: . TIME SPENT: minutes. Vital Signs Vital Signs Date Time Temp Pulse Resp B/P (MAP) Pulse Ox O2 Delivery O2 Flow Rate FiO2 05/01/20 06:23 97.9 54 16 152/85 (107) 99 Room Air Current Medications Current Medications Medications (Trade) Dose Ordered Sig/Eleazar Route PRN Reason Start Time Stop Time Status Last Admin Dose Admin Acetaminophen (Tylenol Tab) 650 mg Q6HP PRN PO HEADACHE or DISCOMFORT 04/26/20 19:30 04/30/20 15:41 Al Hydrox/Mg Hydrox/Simethicone (Mylanta) 30 ml Q4HP PRN PO HEARTBURN/INDIGESTION 04/26/20 19:30 Calcium Carbonate (Tums) 500 mg DAILY PO 04/27/20 09:00 04/27/20 09:31 Cariprazine (Vraylar) 1.5 mg QHS PO 04/28/20 21:00 04/28/20 21:09 DC Cariprazine (Vraylar) 1.5 mg QHS PO 04/28/20 21:00 04/30/20 21:29 Cariprazine (Vraylar) 1.5 mg QHS PO 04/29/20 21:00 04/28/20 21:09 DC Cariprazine (Vraylar) 3 mg QHS PO 04/26/20 21:00 04/28/20 18:58 DC 04/27/20 20:20 Gabapentin (Neurontin) 100 mg TID PO 04/26/20 21:00 05/01/20 15:42 Home Med (Med Rec Complete!) ASDIRECTED XX 04/26/20 18:45 04/26/20 18:46 DC Lidocaine (Lidoderm Patch) 1 patch DAILY@2000 TD 04/30/20 20:00 04/30/20 21:58 Lurasidone HCl (Latuda) 20 mg DAILY@08 PO 04/29/20 08:00 05/01/20 08:56 Magnesium Hydroxide (Milk Of Magnesia) 30 ml DAILYPRN PRN PO CONSTIPATION 04/26/20 19:30 Multivitamins (Theragram-M) 1 tab DAILY PO 04/27/20 09:00 05/01/20 08:56 Naltrexone HCl (Revia) 50 mg DAILY PO 04/27/20 09:00 05/01/20 08:56 Non-Formulary Medication ( See Comment Field Below ) REMOVE LIDODERM PATCH DAILY@0800 XX 05/01/20 08:00 Oxazepam (Serax) 10 mg Q8H PRN PO AGITATION 04/27/20 06:45 05/01/20 08:56 Trazodone HCl (Desyrel) 50 mg QHSP PRN PO INSOMNIA 04/26/20 19:30 04/30/20 22:56 Vitamin D (Vitamin D) 1,000 units DAILY PO 04/27/20 09:00 05/01/20 08:56 Allergies Coded Allergies: amoxicillin (Verified Allergy, Mild, rash, 08/26/18) ibuprofen (Verified Allergy, Mild, rash and vomitting, 08/26/18) pt states she gets a rash on her chest if she takes ibuprofen latex (Verified Allergy, Mild, rash, 08/26/18) NSAIDS (Non-Steroidal Anti-Inflamma (Verified Adverse Reaction, Unknown, HAD WEIGHTLOSS SURGERY, INTOLERANCE, 04/11/20) lactose (Verified Adverse Reaction, Unknown, 04/11/20) MEGAN JEFFRIES MD May 01, 2020 15:47
[2020-05-01 15:53] VITALS: BP 129/73
[2020-05-01] MEDS: LIDOCAINE 5% (LIDODERM) PATCH TD SCH (20:00)
[2020-05-01] MEDS: CARIPRAZINE 1.5MG CAPSULE (VRAYLAR) PO SCH (20:36)
[2020-05-01] MEDS: traZODone 50 MG TAB PO PRN (22:46)
[2020-05-02 06:47] VITALS: BP 126/83
[2020-05-02] MEDS: **NOTE PATIENT COMMENT** MISC XX SCH (08:00)
[2020-05-02] MEDS: LURASIDONE 20 MG TAB (LATUDA) PO SCH (08:29)
[2020-05-02] MEDS: VITAMIN D 1,000 INTERNATIONAL UNITS TABLET PO SCH (08:30)
[2020-05-02] MEDS: MULTIVITAMINS/MINERALS THERAP 1 TAB PO SCH (08:30)
[2020-05-02] MEDS: NALTREXONE 50 MG TAB PO SCH (08:30)
[2020-05-02] MEDS: GABAPENTIN 100 MG CAP PO SCH ×3 (08:30→21:00)
[2020-05-02] MEDS: CALCIUM CARBONATE 500 MG CHEW U/D PO SCH (08:31)
[2020-05-02 18:47] VITALS: BP 166/76
[2020-05-02] MEDS: LIDOCAINE 5% (LIDODERM) PATCH TD SCH (20:00)
[2020-05-02] MEDS: CARIPRAZINE 1.5MG CAPSULE (VRAYLAR) PO SCH (21:00)
[2020-05-02] MEDS: OXAZEPAM 10 MG CAP PO PRN (22:05)
[2020-05-02] MEDS: traZODone 50 MG TAB PO PRN (22:05)
[2020-05-03 06:00] VITALS: BP 124/62
[2020-05-03] MEDS: **NOTE PATIENT COMMENT** MISC XX SCH (08:00)
[2020-05-03] MEDS: NALTREXONE 50 MG TAB PO SCH (08:22)
[2020-05-03] MEDS: GABAPENTIN 100 MG CAP PO SCH ×3 (08:22→21:12)
[2020-05-03] MEDS: VITAMIN D 1,000 INTERNATIONAL UNITS TABLET PO SCH (08:22)
[2020-05-03] MEDS: MULTIVITAMINS/MINERALS THERAP 1 TAB PO SCH (08:22)
[2020-05-03] MEDS: LURASIDONE 20 MG TAB (LATUDA) PO SCH (08:22)
[2020-05-03] MEDS: CALCIUM CARBONATE 500 MG CHEW U/D PO SCH (08:31)
[2020-05-03 18:21] VITALS: BP 128/82
[2020-05-03] MEDS: MAALOX 30 ML SUSP *UDC PO PRN (19:01)
[2020-05-03] MEDS: LIDOCAINE 5% (LIDODERM) PATCH TD SCH (20:00)
[2020-05-03] MEDS: ACETAMINOPHEN TAB 650MG DOSE (2X325MG) PO PRN (21:12)
[2020-05-03] MEDS: CARIPRAZINE 1.5MG CAPSULE (VRAYLAR) PO SCH (21:12)
[2020-05-03] MEDS ORDERED: OXAZEPAM 10 MG CAP PO ONE (22:50)
[2020-05-03] MEDS: traZODone 50 MG TAB PO PRN (22:54)
[2020-05-04 07:00] VITALS: BP 130/91
[2020-05-04] MEDS: **NOTE PATIENT COMMENT** MISC XX SCH (08:00)
[2020-05-04] MEDS: VITAMIN D 1,000 INTERNATIONAL UNITS TABLET PO SCH (08:14)
[2020-05-04] MEDS: MULTIVITAMINS/MINERALS THERAP 1 TAB PO SCH (08:14)
[2020-05-04] MEDS: GABAPENTIN 100 MG CAP PO SCH ×3 (08:14→20:34)
[2020-05-04] MEDS: NALTREXONE 50 MG TAB PO SCH (08:14)
[2020-05-04] MEDS: LURASIDONE 20 MG TAB (LATUDA) PO SCH (08:14)
[2020-05-04] MEDS: CALCIUM CARBONATE 500 MG CHEW U/D PO SCH (09:00)
[2020-05-04] MEDS: ACETAMINOPHEN TAB 650MG DOSE (2X325MG) PO PRN ×2 (10:54→17:24)
[2020-05-04 17:58] VITALS: BP 148/96
[2020-05-04] MEDS: LIDOCAINE 5% (LIDODERM) PATCH TD SCH (20:00)
[2020-05-04] MEDS: CARIPRAZINE 1.5MG CAPSULE (VRAYLAR) PO SCH (20:34)
[2020-05-04] MEDS: OXAZEPAM 10 MG CAP PO PRN (20:34)
[2020-05-05 06:21] VITALS: BP 128/63
[2020-05-05] MEDS: OXAZEPAM 10 MG CAP PO PRN ×2 (06:31→20:39)
[2020-05-05] MEDS: LURASIDONE 20 MG TAB (LATUDA) PO SCH (07:59)
[2020-05-05] MEDS: GABAPENTIN 100 MG CAP PO SCH ×3 (07:59→20:38)
[2020-05-05] MEDS: **NOTE PATIENT COMMENT** MISC XX SCH (08:00)
[2020-05-05] MEDS: NALTREXONE 50 MG TAB PO SCH (08:00)
[2020-05-05] MEDS: VITAMIN D 1,000 INTERNATIONAL UNITS TABLET PO SCH (08:00)
[2020-05-05] MEDS: MULTIVITAMINS/MINERALS THERAP 1 TAB PO SCH (08:00)
[2020-05-05] MEDS: CALCIUM CARBONATE 500 MG CHEW U/D PO SCH (08:02)
[2020-05-05 16:34] VITALS: BP 138/90
[2020-05-05] MEDS: ACETAMINOPHEN TAB 650MG DOSE (2X325MG) PO PRN (17:05)
[2020-05-05] MEDS: LIDOCAINE 5% (LIDODERM) PATCH TD SCH (20:00)
[2020-05-05] MEDS: CARIPRAZINE 1.5MG CAPSULE (VRAYLAR) PO SCH (20:38)
[2020-05-06 06:31] VITALS: BP 142/84
[2020-05-06] MEDS: OXAZEPAM 10 MG CAP PO PRN ×2 (06:43→18:25)
[2020-05-06] MEDS: **NOTE PATIENT COMMENT** MISC XX SCH (08:00)
[2020-05-06] MEDS: LURASIDONE 20 MG TAB (LATUDA) PO SCH (08:12)
[2020-05-06] MEDS: NALTREXONE 50 MG TAB PO SCH (08:12)
[2020-05-06] MEDS: GABAPENTIN 100 MG CAP PO SCH ×3 (08:12→20:55)
[2020-05-06] MEDS: VITAMIN D 1,000 INTERNATIONAL UNITS TABLET PO SCH (08:12)
[2020-05-06] MEDS: MULTIVITAMINS/MINERALS THERAP 1 TAB PO SCH (08:12)
[2020-05-06] MEDS: CALCIUM CARBONATE 500 MG CHEW U/D PO SCH (08:14)
[2020-05-06 16:17] VITALS: BP 118/74
[2020-05-06] MEDS: LIDOCAINE 5% (LIDODERM) PATCH TD SCH (20:00)
[2020-05-06] MEDS: CARIPRAZINE 1.5MG CAPSULE (VRAYLAR) PO SCH (20:55)
[2020-05-06] MEDS ORDERED: PRAZOSIN 1 MG CAP PO SCH (21:00)
[2020-05-07 07:12] VITALS: BP 155/94
[2020-05-07] MEDS: LURASIDONE 20 MG TAB (LATUDA) PO SCH (07:47)
[2020-05-07] MEDS: **NOTE PATIENT COMMENT** MISC XX SCH (07:51)
[2020-05-07] MEDS: CALCIUM CARBONATE 500 MG CHEW U/D PO SCH (08:39)
[2020-05-07] MEDS: MULTIVITAMINS/MINERALS THERAP 1 TAB PO SCH (08:40)
[2020-05-07] MEDS: GABAPENTIN 100 MG CAP PO SCH ×2 (08:40→15:11)
[2020-05-07] MEDS: NALTREXONE 50 MG TAB PO SCH (08:41)
[2020-05-07] MEDS: VITAMIN D 1,000 INTERNATIONAL UNITS TABLET PO SCH (08:41)
[2020-05-07] MEDS: ACETAMINOPHEN TAB 650MG DOSE (2X325MG) PO PRN (11:54)
[2020-05-07] MEDS: MAALOX 30 ML SUSP *UDC PO PRN (16:22)
[2020-05-07] MEDS ORDERED: RIZATRIPTAN BENZOATE 10 MG TAB PO ONE (19:00)
--- NOTE | 2020-05-07 19:17 | MHIPNPDOC ---
[facility] Progress Note Progress Note DATE OF SERVICE: 05/07/20 HISTORY: "Reason for Referral Pt was brought to the ED by EMS due to possible OD? It was suspected pt had OD on her medication due to previously voicing SI earlier today and wouldn't respond staff. According to Dr. Ramesh, all her medication was accounted for and does not believe she ingested any medication. Chief Complaint pt states, "I was feeling suicidal with a plan to OD earlier today, but I don't feel that way now." She was recently discharged from [facility] on 04/23/20 and feels it was too early, but never told anyone. Pt reports she's still having difficulty sleeping which is influencing her mood. States she is still residing with her ex GF and family which she identifies as a "suicidal trigger." She reports feeling significant pressure "to do better and I just can't." States ex GF continues to pressure her to get a job and pt does not believe she can do it. Pt is alert oriented x4 currently, but admits her memory is very poor and wasn't able to respond to staff upon arrival. She notes this being a chronic issue. She suspects it's due to her Bi-polar Disorder? Additionally, pt reports having VH. She describes VH as "bugs crawling everywhere last night." She notes biting of her nail while in the ED due to believing something was under the nail. VITAL SIGNS: See below. NEW TEST RESULTS: See below CURRENT MEDICATIONS: See below. MENTAL STATUS EXAMINATION: General Appearance: well groomed, good hygiene Build: overweight Demeanor: calm, cooperative Eye Contact: improved, average Activity: average, calm Behavior: cooperative Speech: clear, spontaneous in r/t/v Mood: "not the greatest" Thought Process: linear and coherent Thought Content (Delusions): She reports suicidal thoughts, she says that she is having them right now. She says that she got the image in her mind that she was dying but it was not happening at [facility]. She thinks she can control these thoughts and can contract for safety. She will tell one of the Nurses if she feels unsafe. Thought Content (Other): Thought Content (Aggressive): Denies Perception (Hallucinations): She says that she sees the door moving ( "shaking"), she sees a man that nobody else can see, she sees her bed shakes. She sees her face changes when she looks at herself in the mirror. She knows this is not real, so, she tries not to panic. She hears her name being called and are commanding in nature, they tell her to kill herself. Perception (Other): She sess her face changing when she looks at herself in the mirror Cognition (Impairment of): slowly improving Cognition(Intelligence Est.): average Oriented: Oriented times three Insight: fair Judgment: Fair Psychosis: visual illusions and hallucinations Diagnoses: (1) Bipolar 1 disorder, mixed (2) Substance abuse ( marijuana) (3) R/O substance induced psychosis Assessment Will increase Latuda to 40 mgs PO daily and will discontinue Vraylar ( she was on 1.5 mgs). Will increase Prazosin to 2 mgs PO QHS. Last night she still had one nightmare but it was less vivid. She feels Prazosin is helping but would like to try a higher dose. Complaints of migraine, I have prescribed a one time dose of Maxalt. She says she has never had this medication before but she says she has been having migraines every day. She says she can't take Excedrin because can't take NSAID's. Will f/u tomorrow MANAGEMENT PLAN: As above TIME SPENT: 15 minutes. Vital Signs Vital Signs Date Time Temp Pulse Resp B/P (MAP) Pulse Ox O2 Delivery O2 Flow Rate FiO2 05/07/20 07:12 97.8 71 18 155/94 (114) 94 Room Air Current Medications Current Medications Medications (Trade) Dose Ordered Sig/Eleazar Route PRN Reason Start Time Stop Time Status Last Admin Dose Admin Acetaminophen (Tylenol Tab) 650 mg Q6HP PRN PO HEADACHE or DISCOMFORT 04/26/20 19:30 05/07/20 11:54 Al Hydrox/Mg Hydrox/Simethicone (Mylanta) 30 ml Q4HP PRN PO HEARTBURN/INDIGESTION 04/26/20 19:30 05/07/20 16:22 Calcium Carbonate (Tums) 500 mg DAILY PO 04/27/20 09:00 04/27/20 09:31 Cariprazine (Vraylar) 1.5 mg QHS PO 04/28/20 21:00 04/28/20 21:09 DC Cariprazine (Vraylar) 1.5 mg QHS PO 04/28/20 21:00 05/06/20 20:55 Cariprazine (Vraylar) 1.5 mg QHS PO 04/29/20 21:00 04/28/20 21:09 DC Cariprazine (Vraylar) 3 mg QHS PO 04/26/20 21:00 04/28/20 18:58 DC 04/27/20 20:20 Gabapentin (Neurontin) 100 mg TID PO 04/26/20 21:00 05/07/20 15:11 Home Med (Med Rec Complete!) ASDIRECTED XX 04/26/20 18:45 04/26/20 18:46 DC Lidocaine (Lidoderm Patch) 1 patch DAILY@1999 TD 04/30/20 20:00 04/30/20 21:58 Lurasidone HCl (Latuda) 20 mg DAILY@08 PO 04/29/20 08:00 05/07/20 07:47 Magnesium Hydroxide (Milk Of Magnesia) 30 ml DAILYPRN PRN PO CONSTIPATION 04/26/20 19:30 05/05/20 10:50 Multivitamins (Theragram-M) 1 tab DAILY PO 04/27/20 09:00 05/07/20 08:40 Naltrexone HCl (Revia) 50 mg DAILY PO 04/27/20 09:00 05/07/20 08:41 Non-Formulary Medication ( See Comment Field Below ) REMOVE LIDODERM PATCH DAILY@0800 XX 05/01/20 08:00 Oxazepam (Serax) 10 mg Q8H PRN PO AGITATION 04/27/20 06:45 05/06/20 18:25 Prazosin HCl (Minipress) 1 mg QHS PO 05/06/20 21:00 05/06/20 20:55 Trazodone HCl (Desyrel) 50 mg QHSP PRN PO INSOMNIA 04/26/20 19:30 05/06/20 19:49 DC 05/03/20 22:54 Vitamin D (Vitamin D) 1,000 units DAILY PO 04/27/20 09:00 05/07/20 08:41 Allergies Coded Allergies: amoxicillin (Verified Allergy, Mild, rash, 08/26/18) ibuprofen (Verified Allergy, Mild, rash and vomitting, 08/26/18) pt states she gets a rash on her chest if she takes ibuprofen latex (Verified Allergy, Mild, rash, 08/26/18) NSAIDS (Non-Steroidal Anti-Inflamma (Verified Adverse Reaction, Unknown, HAD WEIGHTLOSS SURGERY, INTOLERANCE, 04/11/20) lactose (Verified Adverse Reaction, Unknown, 04/11/20) TARUN MANNING MD May 07, 2020 18:32
[2020-05-07] MEDS: LIDOCAINE 5% (LIDODERM) PATCH TD SCH (20:00)
[2020-05-07] MEDS: PRAZOSIN 1 MG CAP PO SCH (20:52)
[2020-05-07] MEDS: OXAZEPAM 10 MG CAP PO PRN (21:38)
[2020-05-08 06:13] VITALS: BP 114/70
[2020-05-08] MEDS ORDERED: LURASIDONE 20 MG TAB (LATUDA) PO SCH (08:00)
[2020-05-08] MEDS: **NOTE PATIENT COMMENT** MISC XX SCH (08:00)
[2020-05-08] MEDS: VITAMIN D 1,000 INTERNATIONAL UNITS TABLET PO SCH (08:09)
[2020-05-08] MEDS: NALTREXONE 50 MG TAB PO SCH (08:10)
[2020-05-08] MEDS: GABAPENTIN 100 MG CAP PO SCH ×2 (08:10→20:42)
[2020-05-08] MEDS: MULTIVITAMINS/MINERALS THERAP 1 TAB PO SCH (08:10)
[2020-05-08] MEDS: CALCIUM CARBONATE 500 MG CHEW U/D PO SCH (08:11)
[2020-05-08] MEDS: ACETAMINOPHEN TAB 650MG DOSE (2X325MG) PO PRN (09:31)
[2020-05-08] MEDS ORDERED: FIORICET TAB PO PRN (11:30)
[2020-05-08 17:00] VITALS: BP 146/82
[2020-05-08] MEDS ORDERED: OXAZEPAM 10 MG CAP PO PRN ×2 (18:15)
--- NOTE | 2020-05-08 19:21 | MHIPNPDOC ---
[facility] Progress Note Progress Note DATE OF SERVICE: 05/08/20 HISTORY: "Reason for Referral Pt was brought to the ED by EMS due to possible OD? It was suspected pt had OD on her medication due to previously voicing SI earlier today and wouldn't respond staff. According to Dr. Ramesh, all her medication was accounted for and does not believe she ingested any medication. Chief Complaint pt states, "I was feeling suicidal with a plan to OD earlier today, but I don't feel that way now." She was recently discharged from [facility] on 04/23/20 and feels it was too early, but never told anyone. Pt reports she's still having difficulty sleeping which is influencing her mood. States she is still residing with her ex GF and family which she identifies as a "suicidal trigger." She reports feeling significant pressure "to do better and I just can't." States ex GF continues to pressure her to get a job and pt does not believe she can do it. Pt is alert oriented x4 currently, but admits her memory is very poor and wasn't able to respond to staff upon arrival. She notes this being a chronic issue. She suspects it's due to her Bi-polar Disorder? Additionally, pt reports having VH. She describes VH as "bugs crawling everywhere last night." She notes biting of her nail while in the ED due to believing something was under the nail. VITAL SIGNS: See below. NEW TEST RESULTS: See below CURRENT MEDICATIONS: See below. MENTAL STATUS EXAMINATION: General Appearance: well groomed, good hygiene Build: overweight Demeanor: calm, cooperative Eye Contact: improved, average Activity: average, calm Behavior: cooperative Speech: clear, spontaneous in r/t/v Mood: "I'm half the way there" Thought Process: linear and coherent Thought Content (Delusions): She denies thought delusions, she denies SI/HI Thought Content (Other): Thought Content (Aggressive): Denies Perception (Hallucinations): She says she has not heard voices and he only saw her face being distorted in the mirror once Perception (Other): Please read above. Cognition (Impairment of): improving Cognition(Intelligence Est.): average Oriented: Oriented times three Insight: fair Judgment: Fair Psychosis: AV hallucinations ( improving) Diagnoses: (1) Bipolar 1 disorder, mixed (2) Substance abuse ( marijuana) (3) R/O substance induced psychosis Assessment Will increase Latuda to 60 mgs, will start Buspar to 10 mgs PO TIDP, will decrease Oxazepam to 10 mgs PO daily prn for anxiety MANAGEMENT PLAN: As above TIME SPENT: 15 minutes. Vital Signs Vital Signs Date Time Temp Pulse Resp B/P (MAP) Pulse Ox O2 Delivery O2 Flow Rate FiO2 05/08/20 06:13 97.7 61 14 114/70 (85) 98 Room Air Current Medications Current Medications Medications (Trade) Dose Ordered Sig/Eleazar Route PRN Reason Start Time Stop Time Status Last Admin Dose Admin Acetaminophen (Tylenol Tab) 650 mg Q6HP PRN PO HEADACHE or DISCOMFORT 04/26/20 19:30 05/08/20 09:31 Acetaminophen/ Butalbital/ Caffeine (Fioricet) 1 ea DAILY PRN PO HEADACHE 05/08/20 11:30 Al Hydrox/Mg Hydrox/Simethicone (Mylanta) 30 ml Q4HP PRN PO HEARTBURN/INDIGESTION 04/26/20 19:30 05/07/20 16:22 Buspirone HCl (Buspar) 10 mg TID PRN PO ANXIETY/AGITATION 05/08/20 18:15 Calcium Carbonate (Tums) 500 mg DAILY PO 04/27/20 09:00 04/27/20 09:31 Cariprazine (Vraylar) 1.5 mg QHS PO 04/28/20 21:00 05/07/20 18:46 DC 05/06/20 20:55 Cariprazine (Vraylar) 1.5 mg QHS PO 04/28/20 21:00 04/28/20 21:09 DC Cariprazine (Vraylar) 1.5 mg QHS PO 04/29/20 21:00 04/28/20 21:09 DC Cariprazine (Vraylar) 3 mg QHS PO 04/26/20 21:00 04/28/20 18:58 DC 04/27/20 20:20 Gabapentin (Neurontin) 100 mg BID PO 05/08/20 09:00 05/08/20 08:10 Gabapentin (Neurontin) 100 mg TID PO 04/26/20 21:00 05/07/20 18:49 DC 05/07/20 15:11 Home Med (Med Rec Complete!) ASDIRECTED XX 04/26/20 18:45 04/26/20 18:46 DC Lidocaine (Lidoderm Patch) 1 patch DAILY@1999 TD 04/30/20 20:00 04/30/20 21:58 Lurasidone HCl (Latuda) 20 mg DAILY@08 PO 04/29/20 08:00 05/07/20 18:46 DC 05/07/20 07:47 Lurasidone HCl (Latuda) 40 mg DAILY@08 PO 05/08/20 08:00 05/08/20 08:09 Magnesium Hydroxide (Milk Of Magnesia) 30 ml DAILYPRN PRN PO CONSTIPATION 04/26/20 19:30 05/05/20 10:50 Multivitamins (Theragram-M) 1 tab DAILY PO 04/27/20 09:00 05/08/20 08:10 Naltrexone HCl (Revia) 50 mg DAILY PO 04/27/20 09:00 05/08/20 08:10 Non-Formulary Medication ( See Comment Field Below ) REMOVE LIDODERM PATCH DAILY@0800 XX 05/01/20 08:00 Oxazepam (Serax) 10 mg BID PRN PO AGITATION 05/08/20 18:15 Oxazepam (Serax) 10 mg Q8H PRN PO AGITATION 04/27/20 06:45 05/08/20 18:04 DC 05/07/20 21:38 Prazosin HCl (Minipress) 1 mg QHS PO 05/06/20 21:00 05/07/20 18:47 DC 05/06/20 20:55 Prazosin HCl (Minipress) 2 mg QHS PO 05/07/20 21:00 05/07/20 20:52 Trazodone HCl (Desyrel) 50 mg QHSP PRN PO INSOMNIA 04/26/20 19:30 05/06/20 19:49 DC 05/03/20 22:54 Vitamin D (Vitamin D) 1,000 units DAILY PO 04/27/20 09:00 05/08/20 08:09 Allergies Coded Allergies: amoxicillin (Verified Allergy, Mild, rash, 08/26/18) ibuprofen (Verified Allergy, Mild, rash and vomitting, 08/26/18) pt states she gets a rash on her chest if she takes ibuprofen latex (Verified Allergy, Mild, rash, 08/26/18) NSAIDS (Non-Steroidal Anti-Inflamma (Verified Adverse Reaction, Unknown, HAD WEIGHTLOSS SURGERY, INTOLERANCE, 04/11/20) lactose (Verified Adverse Reaction, Unknown, 04/11/20) TARUN MANNING MD May 08, 2020 18:11
[2020-05-08] MEDS: LIDOCAINE 5% (LIDODERM) PATCH TD SCH (20:00)
[2020-05-08] MEDS: PRAZOSIN 1 MG CAP PO SCH (20:42)
[2020-05-08] MEDS: OXAZEPAM 10 MG CAP PO PRN (20:43)
[2020-05-09 06:43] VITALS: BP 148/76
[2020-05-09] MEDS: **NOTE PATIENT COMMENT** MISC XX SCH (08:00)
[2020-05-09] MEDS: NALTREXONE 50 MG TAB PO SCH (08:07)
[2020-05-09] MEDS: LURASIDONE 20 MG TAB (LATUDA) PO SCH (08:07)
[2020-05-09] MEDS: MULTIVITAMINS/MINERALS THERAP 1 TAB PO SCH (08:07)
[2020-05-09] MEDS: GABAPENTIN 100 MG CAP PO SCH ×2 (08:07→21:46)
[2020-05-09] MEDS: VITAMIN D 1,000 INTERNATIONAL UNITS TABLET PO SCH (08:07)
[2020-05-09] MEDS: CALCIUM CARBONATE 500 MG CHEW U/D PO SCH (08:09)
[2020-05-09] MEDS: busPIRone 10 MG TAB PO PRN (16:47)
--- NOTE | 2020-05-09 16:47 | MHIPNPDOC ---
[facility] Progress Note Progress Note DATE OF SERVICE: 05/09/20 HISTORY: "Reason for Referral Pt was brought to the ED by EMS due to possible OD? It was suspected pt had OD on her medication due to previously voicing SI earlier today and wouldn't respond staff. According to Dr. Ramesh, all her medication was accounted for and does not believe she ingested any medication. Chief Complaint pt states, "I was feeling suicidal with a plan to OD earlier today, but I don't feel that way now." She was recently discharged from [facility] on 04/23/20 and feels it was too early, but never told anyone. Pt reports she's still having difficulty sleeping which is influencing her mood. States she is still residing with her ex GF and family which she identifies as a "suicidal trigger." She reports feeling significant pressure "to do better and I just can't." States ex GF continues to pressure her to get a job and pt does not believe she can do it. Pt is alert oriented x4 currently, but admits her memory is very poor and wasn't able to respond to staff upon arrival. She notes this being a chronic issue. She suspects it's due to her Bi-polar Disorder? Additionally, pt reports having VH. She describes VH as "bugs crawling everywhere last night." She notes biting of her nail while in the ED due to believing something was under the nail. Interval History: She says she had a weird nightmare last night and she woke up and she realized she was not home when she walked out of her room, she didn't realize her roommate was there. She felt confused but she went to the Nurse Station, then she went back to sleep and it took her about 2 hours to go back to sleep because she also had a full blown panic attack. VITAL SIGNS: See below. NEW TEST RESULTS: See below CURRENT MEDICATIONS: See below. MENTAL STATUS EXAMINATION: General Appearance: well groomed, good hygiene Build: overweight Demeanor: calm, cooperative Eye Contact: improved, average Activity: average, calm Behavior: cooperative Speech: clear, spontaneous in r/t/v Mood: "a little sad" Thought Process: linear and coherent Thought Content (Delusions): She denies thought delusions, she denies SI/HI Thought Content (Other): Thought Content (Aggressive): Denies Perception (Hallucinations): She says she has heard her name being called ( 6x), is less frequent than before. Last night she heard voices, they were commanding in nature and they were telling her to killl herself. Perception (Other): Please read above. Cognition (Impairment of): improving Cognition(Intelligence Est.): average Oriented: Oriented times three Insight: fair Judgment: Fair Psychosis: AV hallucinations ( improving) Diagnoses: (1) Bipolar 1 disorder, mixed (2) Substance abuse ( marijuana) (3) R/O substance induced psychosis Assessment: Will not adjust any medications at this time. Will give the medications some time to act. MANAGEMENT PLAN: As above TIME SPENT: 15 minutes. Vital Signs Vital Signs Vital Signs Date Time Temp Pulse Resp B/P (MAP) Pulse Ox O2 Delivery O2 Flow Rate FiO2 05/09/20 09:00 16 05/09/20 06:43 96.4 99 148/76 (100) 98 Room Air Current Medications Current Medications Medications (Trade) Dose Ordered Sig/Eleazar Route PRN Reason Start Time Stop Time Status Last Admin Dose Admin Acetaminophen (Tylenol Tab) 650 mg Q6HP PRN PO HEADACHE or DISCOMFORT 04/26/20 19:30 05/08/20 09:31 Acetaminophen/ Butalbital/ Caffeine (Fioricet) 1 ea DAILY PRN PO HEADACHE 05/08/20 11:30 05/09/20 08:07 Al Hydrox/Mg Hydrox/Simethicone (Mylanta) 30 ml Q4HP PRN PO HEARTBURN/INDIGESTION 04/26/20 19:30 05/07/20 16:22 Buspirone HCl (Buspar) 10 mg TID PRN PO ANXIETY/AGITATION 05/08/20 18:15 Calcium Carbonate (Tums) 500 mg DAILY PO 04/27/20 09:00 04/27/20 09:31 Cariprazine (Vraylar) 1.5 mg QHS PO 04/28/20 21:00 05/07/20 18:46 DC 05/06/20 20:55 Cariprazine (Vraylar) 1.5 mg QHS PO 04/28/20 21:00 04/28/20 21:09 DC Cariprazine (Vraylar) 1.5 mg QHS PO 04/29/20 21:00 04/28/20 21:09 DC Cariprazine (Vraylar) 3 mg QHS PO 04/26/20 21:00 04/28/20 18:58 DC 04/27/20 20:20 Gabapentin (Neurontin) 100 mg BID PO 05/08/20 09:00 05/09/20 08:07 Gabapentin (Neurontin) 100 mg TID PO 04/26/20 21:00 05/07/20 18:49 DC 05/07/20 15:11 Home Med (Med Rec Complete!) ASDIRECTED XX 04/26/20 18:45 04/26/20 18:46 DC Lidocaine (Lidoderm Patch) 1 patch DAILY@1999 TD 04/30/20 20:00 04/30/20 21:58 Lurasidone HCl (Latuda) 20 mg DAILY@08 PO 04/29/20 08:00 05/07/20 18:46 DC 05/07/20 07:47 Lurasidone HCl (Latuda) 40 mg DAILY@08 PO 05/08/20 08:00 05/08/20 18:12 DC 05/08/20 08:09 Lurasidone HCl (Latuda) 60 mg DAILY@08 PO 05/09/20 08:00 05/09/20 08:07 Magnesium Hydroxide (Milk Of Magnesia) 30 ml DAILYPRN PRN PO CONSTIPATION 04/26/20 19:30 05/05/20 10:50 Multivitamins (Theragram-M) 1 tab DAILY PO 04/27/20 09:00 05/09/20 08:07 Naltrexone HCl (Revia) 50 mg DAILY PO 04/27/20 09:00 05/09/20 08:07 Non-Formulary Medication ( See Comment Field Below ) REMOVE LIDODERM PATCH DAILY@0800 XX 05/01/20 08:00 Oxazepam (Serax) 5 mg BID PRN PO AGITATION 05/08/20 18:15 UNV Oxazepam (Serax) 10 mg BID PRN PO AGITATION 05/08/20 18:15 05/08/20 18:13 DC Oxazepam (Serax) 10 mg DAILYPRN PRN PO AGITATION 05/08/20 18:30 05/08/20 20:43 Oxazepam (Serax) 10 mg Q8H PRN PO AGITATION 04/27/20 06:45 05/08/20 18:04 DC 05/07/20 21:38 Prazosin HCl (Minipress) 1 mg QHS PO 05/06/20 21:00 05/07/20 18:47 DC 05/06/20 20:55 Prazosin HCl (Minipress) 2 mg QHS PO 05/07/20 21:00 05/08/20 20:42 Trazodone HCl (Desyrel) 50 mg QHSP PRN PO INSOMNIA 04/26/20 19:30 05/06/20 19:49 DC 05/03/20 22:54 Vitamin D (Vitamin D) 1,000 units DAILY PO 04/27/20 09:00 05/09/20 08:07 Allergies Coded Allergies: amoxicillin (Verified Allergy, Mild, rash, 08/26/18) ibuprofen (Verified Allergy, Mild, rash and vomitting, 08/26/18) pt states she gets a rash on her chest if she takes ibuprofen latex (Verified Allergy, Mild, rash, 08/26/18) NSAIDS (Non-Steroidal Anti-Inflamma (Verified Adverse Reaction, Unknown, HAD WEIGHTLOSS SURGERY, INTOLERANCE, 04/11/20) lactose (Verified Adverse Reaction, Unknown, 04/11/20) TARUN MANNING MD May 09, 2020 16:47
[2020-05-09 18:00] VITALS: BP 128/82
[2020-05-09] MEDS: LIDOCAINE 5% (LIDODERM) PATCH TD SCH (20:00)
[2020-05-09] MEDS: OXAZEPAM 10 MG CAP PO PRN (20:23)
[2020-05-09] MEDS: PRAZOSIN 1 MG CAP PO SCH (21:46)
[2020-05-10] MEDS: **NOTE PATIENT COMMENT** MISC XX SCH (08:00)
[2020-05-10] MEDS: LURASIDONE 20 MG TAB (LATUDA) PO SCH (08:00)
[2020-05-10] MEDS: CALCIUM CARBONATE 500 MG CHEW U/D PO SCH (09:00)
[2020-05-10] MEDS: NALTREXONE 50 MG TAB PO SCH (09:00)
[2020-05-10] MEDS: MULTIVITAMINS/MINERALS THERAP 1 TAB PO SCH (09:00)
[2020-05-10] MEDS: VITAMIN D 1,000 INTERNATIONAL UNITS TABLET PO SCH (09:00)
[2020-05-10] MEDS: GABAPENTIN 100 MG CAP PO SCH ×2 (09:00→20:40)
[2020-05-10] MEDS: busPIRone 10 MG TAB PO PRN ×2 (15:41→22:54)
--- NOTE | 2020-05-10 17:26 | MHIPNPDOC ---
[facility] Progress Note Progress Note DATE OF SERVICE: 05/10/20 HISTORY: "Reason for Referral Pt was brought to the ED by EMS due to possible OD? It was suspected pt had OD on her medication due to previously voicing SI earlier today and wouldn't respond staff. According to Dr. Ramesh, all her medication was accounted for and does not believe she ingested any medication. Chief Complaint pt states, "I was feeling suicidal with a plan to OD earlier today, but I don't feel that way now." She was recently discharged from [facility] on 04/23/20 and feels it was too early, but never told anyone. Pt reports she's still having difficulty sleeping which is influencing her mood. States she is still residing with her ex GF and family which she identifies as a "suicidal trigger." She reports feeling significant pressure "to do better and I just can't." States ex GF continues to pressure her to get a job and pt does not believe she can do it. Pt is alert oriented x4 currently, but admits her memory is very poor and wasn't able to respond to staff upon arrival. She notes this being a chronic issue. She suspects it's due to her Bi-polar Disorder? Additionally, pt reports having VH. She describes VH as "bugs crawling everywhere last night." She notes biting of her nail while in the ED due to believing something was under the nail. Interval History: she says she has been a little depressed today. she says she had 2-3 nightmares last night, has been very anxious all day. VITAL SIGNS: See below. NEW TEST RESULTS: See below CURRENT MEDICATIONS: See below. MENTAL STATUS EXAMINATION: General Appearance: well groomed, good hygiene Build: overweight Demeanor: calm, cooperative Eye Contact: improved, average Activity: average, calm Behavior: cooperative Speech: clear, spontaneous in r/t/v Mood: "a little sad" Thought Process: linear and coherent Thought Content (Delusions): She denies thought delusions, she denies SI/HI Thought Content (Other): Thought Content (Aggressive): Denies Perception (Hallucinations): She says she has heard her name being called ( 6x), is less frequent than before. Last night she heard voices, they were commanding in nature and they were telling her to killl herself. Perception (Other): Please read above. Cognition (Impairment of): improving Cognition(Intelligence Est.): average Oriented: Oriented times three Insight: fair Judgment: Fair Psychosis: AV hallucinations ( improving) Diagnoses: (1) Bipolar 1 disorder, mixed (2) Substance abuse ( marijuana) (3) R/O substance induced psychosis (4) R/O borderline personality disorder Assessment: the patient keeps doing things that are only going to hurt her. she has been calling hr ex girlfriend to discuss several issus and she keeps getting depressed because she is hearing things she doesn't want to hear. she says that there's a lady who is involved with her ex who has been visiting her children and this upsets her. she is worried because she thinks that she doesn't know exactly where she is going to live. Two days ago she was very positive but she has been ruminating epressive thoughts and is getting depressed. she has associated with other patients and unfortunately none of them are at a good point in their lives and they are being anegative influence to one another. This securities underwriter requested her to look for her Nurse if she wants to talk about something and try not to follow the advise of her peers and not to give advise to her peers or not to involve her in her personal problems. encouraged her to attend groups to learn coping skills. MANAGEMENT PLAN: As above TIME SPENT: 15 minutes. Vital Signs Vital Signs Date Time Temp Pulse Resp B/P (MAP) Pulse Ox O2 Delivery O2 Flow Rate FiO2 05/09/20 21:46 144/77 05/09/20 18:00 96.6 68 96 05/09/20 06:43 98 Room Air Current Medications Current Medications Medications (Trade) Dose Ordered Sig/Eleazar Route PRN Reason Start Time Stop Time Status Last Admin Dose Admin Acetaminophen (Tylenol Tab) 650 mg Q6HP PRN PO HEADACHE or DISCOMFORT 04/26/20 19:30 05/08/20 09:31 Acetaminophen/ Butalbital/ Caffeine (Fioricet) 1 ea DAILY PRN PO HEADACHE 05/08/20 11:30 05/09/20 08:07 Al Hydrox/Mg Hydrox/Simethicone (Mylanta) 30 ml Q4HP PRN PO HEARTBURN/INDIGESTION 04/26/20 19:30 05/07/20 16:22 Buspirone HCl (Buspar) 10 mg TID PRN PO ANXIETY/AGITATION 05/08/20 18:15 05/10/20 15:41 Calcium Carbonate (Tums) 500 mg DAILY PO 04/27/20 09:00 04/27/20 09:31 Cariprazine (Vraylar) 1.5 mg QHS PO 04/28/20 21:00 05/07/20 18:46 DC 05/06/20 20:55 Cariprazine (Vraylar) 1.5 mg QHS PO 04/28/20 21:00 04/28/20 21:09 DC Cariprazine (Vraylar) 1.5 mg QHS PO 04/29/20 21:00 04/28/20 21:09 DC Cariprazine (Vraylar) 3 mg QHS PO 04/26/20 21:00 04/28/20 18:58 DC 04/27/20 20:20 Gabapentin (Neurontin) 100 mg BID PO 05/08/20 09:00 05/10/20 09:00 Gabapentin (Neurontin) 100 mg TID PO 04/26/20 21:00 05/07/20 18:49 DC 05/07/20 15:11 Home Med (Med Rec Complete!) ASDIRECTED XX 04/26/20 18:45 04/26/20 18:46 DC Lidocaine (Lidoderm Patch) 1 patch DAILY@1999 TD 04/30/20 20:00 04/30/20 21:58 Lurasidone HCl (Latuda) 20 mg DAILY@08 PO 04/29/20 08:00 05/07/20 18:46 DC 05/07/20 07:47 Lurasidone HCl (Latuda) 40 mg DAILY@08 PO 05/08/20 08:00 05/08/20 18:12 DC 05/08/20 08:09 Lurasidone HCl (Latuda) 60 mg DAILY@08 PO 05/09/20 08:00 05/10/20 08:00 Magnesium Hydroxide (Milk Of Magnesia) 30 ml DAILYPRN PRN PO CONSTIPATION 04/26/20 19:30 05/05/20 10:50 Multivitamins (Theragram-M) 1 tab DAILY PO 04/27/20 09:00 05/10/20 09:00 Naltrexone HCl (Revia) 50 mg DAILY PO 04/27/20 09:00 05/10/20 09:00 Non-Formulary Medication ( See Comment Field Below ) REMOVE LIDODERM PATCH DAILY@0800 XX 05/01/20 08:00 Oxazepam (Serax) 5 mg BID PRN PO AGITATION 05/08/20 18:15 UNV Oxazepam (Serax) 10 mg BID PRN PO AGITATION 05/08/20 18:15 05/08/20 18:13 DC Oxazepam (Serax) 10 mg DAILYPRN PRN PO AGITATION 05/08/20 18:30 05/09/20 20:23 Oxazepam (Serax) 10 mg Q8H PRN PO AGITATION 04/27/20 06:45 05/08/20 18:04 DC 05/07/20 21:38 Prazosin HCl (Minipress) 1 mg QHS PO 05/06/20 21:00 05/07/20 18:47 DC 05/06/20 20:55 Prazosin HCl (Minipress) 2 mg QHS PO 05/07/20 21:00 05/09/20 21:46 Trazodone HCl (Desyrel) 50 mg QHSP PRN PO INSOMNIA 04/26/20 19:30 05/06/20 19:49 DC 05/03/20 22:54 Vitamin D (Vitamin D) 1,000 units DAILY PO 04/27/20 09:00 05/10/20 09:00 Allergies Coded Allergies: amoxicillin (Verified Allergy, Mild, rash, 08/26/18) ibuprofen (Verified Allergy, Mild, rash and vomitting, 08/26/18) pt states she gets a rash on her chest if she takes ibuprofen latex (Verified Allergy, Mild, rash, 08/26/18) NSAIDS (Non-Steroidal Anti-Inflamma (Verified Adverse Reaction, Unknown, HAD WEIGHTLOSS SURGERY, INTOLERANCE, 04/11/20) lactose (Verified Adverse Reaction, Unknown, 04/11/20) TARUN MANNING MD May 10, 2020 16:27
[2020-05-10 18:00] VITALS: BP 120/84
[2020-05-10] MEDS: OXAZEPAM 10 MG CAP PO PRN (18:31)
[2020-05-10] MEDS: LIDOCAINE 5% (LIDODERM) PATCH TD SCH (20:00)
[2020-05-10 20:42] VITALS: BP 140/84
[2020-05-10] MEDS: PRAZOSIN 1 MG CAP PO SCH (20:42)
[2020-05-11 06:19] VITALS: BP 135/78
[2020-05-11] MEDS: busPIRone 10 MG TAB PO PRN (07:02)
[2020-05-11] MEDS: **NOTE PATIENT COMMENT** MISC XX SCH (08:00)
[2020-05-11] MEDS: MULTIVITAMINS/MINERALS THERAP 1 TAB PO SCH (08:02)
[2020-05-11] MEDS: VITAMIN D 1,000 INTERNATIONAL UNITS TABLET PO SCH (08:02)
[2020-05-11] MEDS: NALTREXONE 50 MG TAB PO SCH (08:02)
[2020-05-11] MEDS: GABAPENTIN 100 MG CAP PO SCH (08:02)
[2020-05-11] MEDS: LURASIDONE 20 MG TAB (LATUDA) PO SCH (08:02)
[2020-05-11] MEDS: CALCIUM CARBONATE 500 MG CHEW U/D PO SCH (08:24)
[2020-05-11] MEDS: OXAZEPAM 10 MG CAP PO PRN (12:52)
[2020-05-11] MEDS ORDERED: MINI1CAP PO (16:10)
[2020-05-11] MEDS ORDERED: GABA-1171 PO (16:10)
[2020-05-11] MEDS ORDERED: BUSP10TA PO (16:10)
[2020-05-11] MEDS ORDERED: BUTA-198 PO (16:10)
[2020-05-11] MEDS ORDERED: LATU20TA PO (16:10)
--- NOTE | 2020-05-11 19:30 | MHDSPDOC ---
[facility] Discharge Summary Discharge Summary DATE OF ADMISSION: Apr 26, 2020 at 19:29 DATE OF DISCHARGE: DISCHARGE DIAGNOSES: 1. . 2. . REASON FOR ADMISSION: As per ED report: "Pt was brought to the ED by EMS due to possible OD? It was suspected pt had OD on her medication due to previously voicing SI earlier today and wouldn't respond staff. According to Dr. Ramesh, all her medication was accounted for and does not believe she ingested any medication. Chief Complaint pt states, "I was feeling suicidal with a plan to OD earlier today, but I don't feel that way now." She was recently discharged from [facility] on 04/23/20 and feels it was too early, but never told anyone. Pt reports she's still having difficulty sleeping which is influencing her mood. States she is still residing with her ex GF and family which she identifies as a "suicidal trigger." She reports feeling significant pressure "to do better and I just can't." States ex GF continues to pressure her to get a job and pt does not believe she can do it. Pt is alert oriented x4 currently, but admits her memory is very poor and wasn't able to respond to staff upon arrival. She notes this being a chronic issue. She suspects it's due to her Bi-polar Disorder? Additionally, pt reports having VH. She describes VH as "bugs crawling everywhere last night." She notes biting of her nail while in the ED due to believing something was under the nail. CONSULTANTS INVOLVED: None TREATMENT AND PROGRESS ON THE UNIT : Maria Eugenia has been cooperative since she was admitted. She reports having "hallucinations" that seem to be more "illusions", by the wy she has described them. For example, she has voiced multiple times that when she looks at herself in the mirror, she sees as if her face is changing at that very moment. She says she is able to say this is not real and does not become scared. She has reported seeing the figure of a man at night, she has said tht she has heard voices that call her name multiple times and that have told her to kill herself or have been making deprecatory comments about herself. She was started on Vraylar but she didn't like the way she felt with this medication, so, she was cross tapered and was started on Latuda, because she wanted to try it, since her mother suggested it because mom uses that medication and she has had a good response to it. She was started on Latuda and the dose was titrated. At the very beginning she said she felt better, she was more optimistic, more positive but unfortunately she tends to make phone calls to people that have not been very nice to her, according to what she says and has ended up feeling depressed. However, her mood and affect improved dramatically since yesterday, [place] we had a conversation about her going back home and take care of her children. The thought of being with them again have helped her feel better. She is motivated for treatment today, she is future orientated. At this time, she is on Latuda 60 mgs PO daily, Prazosin 2 mgs PO QHS and Gabapentin 100 ms PO BID. She is taking Revia 50 mgs PO daily, she says it is for pain. She recently got started on Buspirone 10 mgs PO TIDP for anxiety. 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 The patient presents with some borderline personality features too and unfortunately she has admitted to abuse marijuana and is not very interested in quitting it. HOSPITAL COURSE: As above DISCHARGE ASSESSMENT: At the time of her discharge, the patient was not a danger to self or others, she came up with a safety plan where she said she would talk to her ex GF, with whom she is going to be sharing an apartment ( but not like a couple) and if her ex GF was not there, she would contact her mother. She was future orientated, motivated to spend time with her children. MENTAL STATUS EXAMINATION ON DISCHARGE: General Appearance: well groomed, good hygiene Build: overweight Demeanor: calm, cooperative Eye Contact: improved, average Activity: average, calm Behavior: cooperative Speech: clear, spontaneous in r/t/v Mood: "a lot better today" Thought Process: linear and coherent Thought Content (Delusions): She denies thought delusions, she denies SI/HI Thought Content (Other): Thought Content (Aggressive): Denies Perception (Hallucinations): She says she heard one voice last night and the voice was telling her that she was not worth it. Perception (Other): Please read above. Cognition (Impairment of): average Cognition(Intelligence Est.): average Oriented: Oriented times three Insight: fair Judgment: Fair Psychosis: Denies, she is not responding to internal stimuli Diagnoses: (1) Bipolar 1 disorder, mixed (2) Substance abuse ( marijuana) (3) R/O substance induced psychosis (4) R/O borderline personality disorder MEDICATIONS ON DISCHARGE: Scheduled Biotin (Biotin) 1 Mg Capsule, 1 MG PO DAILY, (Reported) Calcium Carbonate (Calcium) 500 Mg Tab.chew, 500 MG PO DAILY, (Reported) Cholecalciferol (Vitamin D3) (Vitamin D3) 1,000 Unit Tablet, 1,000 UNITS PO DAILY, (Reported) Gabapentin (Gabapentin) 100 Mg Capsule, 100 MG PO BID for anxiety/mood, #14 Lurasidone Hydrochloride (Latuda) 20 Mg Tablet, 60 MG PO DAILY@08 for mood, #7 Multivitamin,Therapeutic (Thera-Tabs) 1 Each Tablet, 1 TAB PO DAILY, (Reported) Naltrexone HCl (Naltrexone HCl) 50 Mg Tablet, 50 MG PO DAILY, (Reported) Prazosin HCl (Minipress) 1 Mg Capsule, 2 MG PO QHS for nightmares, #7 Scheduled PRN Buspirone HCl (Buspirone HCl) 10 Mg Tablet, 10 MG PO TID PRN for ANXIETY/AGITATION, #21 Allergies Coded Allergies: amoxicillin (Verified Allergy, Mild, rash, 08/26/18) ibuprofen (Verified Allergy, Mild, rash and vomitting, 08/26/18) pt states she gets a rash on her chest if she takes ibuprofen latex (Verified Allergy, Mild, rash, 08/26/18) NSAIDS (Non-Steroidal Anti-Inflamma (Verified Adverse Reaction, Unknown, HAD WEIGHTLOSS SURGERY, INTOLERANCE, 04/11/20) PLAN/FOLLOWUP ARRANGEMENTS: Follow Up Care Education Label * Medical * Medical Follow Up [facility] * Established With This Provider Yes * Therapist HANH * Date May 24, 2020 * Time 15:40 * Address of Clinic or Practice [address] [place] [address] * Phone Number [phone] * Additional information WILL CONTACT ON THURSDAY IF SOONER APPOINTMENT AVAILABLE. Follow Up Care Education Label * Mental Health Appt 1 * Medical Follow Up [facility] MENTAL HEALTH * Established With This Provider Yes * Therapist GALLO * Address of Clinic or Practice [address] [place] [address] * * Additional information GARIMA WILL CALL YOU ON THURSDAY AND LET YOU KNOW WHEN YOUR APPOINTMENT WITH GALLO IS SCHEDULED. The amount of time spent in the coordination of care for this patient was approximately 35 minutes. Vital Signs/I&Os Vital Signs Date Time Temp Pulse Resp B/P (MAP) Pulse Ox O2 Delivery O2 Flow Rate FiO2 05/11/20 06:19 97.7 78 18 135/78 (97) 100 Room Air Medications Scheduled Biotin (Biotin) 1 Mg Capsule, 1 MG PO DAILY, (Reported) Calcium Carbonate (Calcium) 500 Mg Tab.chew, 500 MG PO DAILY, (Reported) Cholecalciferol (Vitamin D3) (Vitamin D3) 1,000 Unit Tablet, 1,000 UNITS PO DAILY, (Reported) Gabapentin (Gabapentin) 100 Mg Capsule, 100 MG PO BID for anxiety/mood, #14 Lurasidone Hydrochloride (Latuda) 20 Mg Tablet, 60 MG PO DAILY@08 for mood, #7 Multivitamin,Therapeutic (Thera-Tabs) 1 Each Tablet, 1 TAB PO DAILY, (Reported) Naltrexone HCl (Naltrexone HCl) 50 Mg Tablet, 50 MG PO DAILY, (Reported) Prazosin HCl (Minipress) 1 Mg Capsule, 2 MG PO QHS for nightmares, #7 Scheduled PRN Buspirone HCl (Buspirone HCl) 10 Mg Tablet, 10 MG PO TID PRN for ANXIETY/AGITATION, #21 Allergies Coded Allergies: amoxicillin (Verified Allergy, Mild, rash, 08/26/18) ibuprofen (Verified Allergy, Mild, rash and vomitting, 08/26/18) pt states she gets a rash on her chest if she takes ibuprofen latex (Verified Allergy, Mild, rash, 08/26/18) NSAIDS (Non-Steroidal Anti-Inflamma (Verified Adverse Reaction, Unknown, HAD WEIGHTLOSS SURGERY, INTOLERANCE, 04/11/20) lactose (Verified Adverse Reaction, Unknown, 04/11/20) TARUN MANNING MD May 11, 2020 15:49
[2020-05-14] MEDS ORDERED: GABA-1171 PO (20:55)
[2020-05-14] MEDS ORDERED: BUSP10TA PO (20:57)
[2020-05-14] MEDS ORDERED: LATU1TAB PO (21:01)
[2020-05-14] MEDS ORDERED: PRAZ2CAP PO (21:03)
== END 2020-05-11 17:38 | disposition home or self-care (01) | DRG 885 ==
LOC: M ED 15:39 → M ED INP 19:29 → M PSY 20:05
PROVIDERS: ADMIT Psychiatry & Neurology Psychiatry; ATTEND Psychiatry & Neurology Psychiatry
DX: F31.60 Bipolar disorder, current episode mixed, unspecified (principal); F12.10 Cannabis abuse, uncomplicated; E73.9 Lactose intolerance, unspecified; F60.3 Borderline personality disorder; M79.7 Fibromyalgia; R07.89 Other chest pain; Z98.84 Bariatric surgery status; Z91.14 Patient's other noncompliance with medication regimen; Z11.52 Encounter for screening for COVID-19; Z79.899 Other long term (current) drug therapy; Z91.5 Personal history of self-harm; Z88.0 Allergy status to penicillin; Z88.6 Allergy status to analgesic agent; Z91.040 Latex allergy status

== ENCOUNTER 2022-12-01 13:45 | Inpatient (IN) | payer MEDICARE, MEDICAID ==
[~2022-12-01] VITALS: Ht 154.9 cm; Wt 85.5 kg
[~2022-12-01 13:45] MED LIST changes: +BUSP10TA PO; +BUTA-198 PO; -D31000TA2 PO; +LATU1TAB PO; +LATU20TA PO; +MINI1CAP PO; +PHEN-239 PO; +PRAZ2CAP PO; -TOBR0.3S OS; +TOBR0.3S10 OS; +VITA100093 PO
[2022-12-01 15:13] LABS: HEMATOCRIT 32.1 % (36.0-47.0); HEMOGLOBIN 10.4 g/dl (12.0-15.5); MEAN CORPUSCULAR HEMOGLOBIN 27.1 pg (27.0-33.0); MEAN CORPUSCULAR HGB CONC 32.4 g/dl (32.0-36.5); MEAN CORPUSCULAR VOLUME 83.6 fl (80.0-96.0); PLATELET COUNT, AUTOMATED 191 10^3/uL (150-450); RED BLOOD COUNT 3.84 10^6/uL (4.00-5.40); WHITE BLOOD COUNT 4.9 10^3/uL (4.0-10.0)
[2022-12-01 15:41] LABS: AMPHETAMINES LEVEL URINE NEGATIVE (NEGATIVE); BARBITURATES URINE NEGATIVE (NEGATIVE); BENZODIAZEPINES URINE NEGATIVE (NEGATIVE); COCAINE METABOLITE URINE NEGATIVE (NEGATIVE); METHADONE URINE NEGATIVE (NEGATIVE); OPIATES URINE NEGATIVE (NEGATIVE); PHENCYCLIDINE URINE NEGATIVE (NEGATIVE)
[2022-12-01 15:42] LABS: ETHYL ALCOHOL (ETHANOL) < 0.003 % (0.000-0.010)
[2022-12-01 15:42] LABS: CANNABINOIDS URINE NEGATIVE (NEGATIVE)
[2022-12-01 15:43] LABS: ACETAMINOPHEN LEVEL < 2.0 UG/ML (10.0-20.0)
[2022-12-01 15:44] LABS: ALBUMIN 3.9 G/DL (3.2-5.2); ALKALINE PHOSPHATASE 68 U/L (46-116); ALT/SGPT 36 U/L (7.0-40); AST/SGOT 30 U/L (<34); BILIRUBIN,DIRECT 0.2 MG/DL (<0.4); BILIRUBIN,TOTAL 0.5 MG/DL (0.3-1.2); BLOOD UREA NITROGEN 6 MG/DL (9-23); CALCIUM LEVEL 9.3 MG/DL (8.5-10.1); CARBON DIOXIDE LEVEL 26 MMOL/L (20-31); CHLORIDE LEVEL 107 MMOL/L (98-107); CREATININE FOR GFR 0.63 MG/DL (0.55-1.30); GLOMERULAR FILTRATION RATE > 60.0 (>60); GLUCOSE, FASTING 87 MG/DL (60-100); SALICYLATE LEVEL < 3.0 MG/DL (<30); SODIUM LEVEL 142 MMOL/L (136-145); TOTAL PROTEIN 6.3 G/DL (5.7-8.2)
[2022-12-01 15:46] LABS: THYROID STIMULATING HORMONE 0.704 uIU/ML (0.55-4.78)
[2022-12-01 15:49] LABS: HCG, SERUM QUALITATIVE NEGATIVE (NEGATIVE)
[2022-12-01] MEDS ORDERED: LORazepam 2 MG TAB PO ONE (17:40)
[2022-12-01] MEDS ORDERED: OLANZapine ORAL DISINTEGRATING TAB 5MG PO ONE (17:40)
[2022-12-02] MEDS ORDERED: OLANZapine ORAL DISINTEGRATING TAB 5MG PO ONE ×3 (05:25→21:45)
[2022-12-02] MEDS ORDERED: LORazepam 2 MG TAB PO STA ×2 (07:41→11:09)
[2022-12-02] MEDS ORDERED: diphenhydrAMINE 50MG CAP PO ONE (07:45)
[2022-12-02] MEDS ORDERED: MED REC CURRENTLY UNOBTAINABLE XX SCH (08:55)
[2022-12-02] MEDS ORDERED: MED REC IN PROGRESS XX SCH (10:45)
[2022-12-02] MEDS ORDERED: TRAZ-257 PO (11:16)
[2022-12-02] MEDS ORDERED: RISP3TAB PO (11:16)
[2022-12-02] MEDS ORDERED: FLUO1TAB3 PO (11:16)
[2022-12-02] MEDS ORDERED: HYDR-3363 PO (11:16)
[2022-12-02] MEDS ORDERED: RISP25INJ IM (11:16)
[2022-12-02] MEDS ORDERED: POTA99CA2 PO (11:16)
[2022-12-02] MEDS ORDERED: HOME MED LIST COMPLETE! XX SCH (11:20)
[2022-12-02] MEDS ORDERED: traZODone 50 MG TAB PO PRN (13:15)
[2022-12-02] MEDS ORDERED: MAALOX 30 ML SUSP *UDC PO PRN (13:15)
[2022-12-02 15:03] VITALS: BP 148/81; TEMP 97.4; O2SAT 100
[2022-12-02] MEDS: diphenhydrAMINE 25MG CAP PO PRN (17:15)
[2022-12-02] MEDS: OLANZapine ORAL DISINTEGRATING TAB 5MG PO PRN (17:16)
[2022-12-02] MEDS: ACETAMINOPHEN TAB 650MG DOSE (2X325MG) PO PRN (20:53)
[2022-12-02] MEDS ORDERED: LORazepam 1 MG TAB PO ONE (21:45)
[2022-12-03] MEDS: OLANZapine ORAL DISINTEGRATING TAB 5MG PO PRN ×3 (00:29→14:03)
[2022-12-03 06:12] VITALS: BP 155/65; TEMP 96.8; O2SAT 100
[2022-12-03] MEDS: risperiDONE 3 MG TAB PO SCH ×2 (08:28→20:06)
[2022-12-03] MEDS: FLUoxetine 20MG CAP PO SCH (08:28)
[2022-12-03] MEDS: MULTIVITAMINS/MINERALS THERAP 1 TAB PO SCH (08:28)
[2022-12-03] MEDS: NICOTINE 21MG/24HR 1 EA TRANSDERMAL TD SCH (09:00)
[2022-12-03] MEDS: amLODIPine 5 MG TAB PO SCH (10:48)
[2022-12-03] MEDS: MOM 30ML SUSPENSION UDC PO PRN (20:06)
[2022-12-03] MEDS: traZODone 100 MG TAB PO SCH (20:06)
[2022-12-03] MEDS: ACETAMINOPHEN TAB 650MG DOSE (2X325MG) PO PRN (21:48)
[2022-12-03] MEDS: diphenhydrAMINE 25MG CAP PO PRN (21:56)
[2022-12-04 06:40] VITALS: BP 142/77; TEMP 98.1; O2SAT 100
[2022-12-04] MEDS: MULTIVITAMINS/MINERALS THERAP 1 TAB PO SCH (08:39)
[2022-12-04] MEDS: risperiDONE 3 MG TAB PO SCH ×2 (08:39→20:38)
[2022-12-04] MEDS: FLUoxetine 20MG CAP PO SCH (08:40)
[2022-12-04] MEDS: amLODIPine 5 MG TAB PO SCH (08:40)
[2022-12-04] MEDS: NICOTINE 21MG/24HR 1 EA TRANSDERMAL TD SCH (08:41)
[2022-12-04] MEDS: LORazepam 2 MG TAB PO PRN (12:13)
[2022-12-04 17:21] VITALS: BP_SYST 146; BP_SYST 169; BP_DIAS 81; BP_DIAS 84; TEMP 96.2; O2SAT 99
[2022-12-04] MEDS: traZODone 100 MG TAB PO SCH (20:38)
[2022-12-05] MEDS: ACETAMINOPHEN TAB 650MG DOSE (2X325MG) PO PRN ×2 (06:48→23:59)
[2022-12-05 07:05] VITALS: BP 136/74; TEMP 98.1; O2SAT 100
[2022-12-05] MEDS: amLODIPine 5 MG TAB PO SCH (07:29)
[2022-12-05] MEDS: FLUoxetine 20MG CAP PO SCH (07:29)
[2022-12-05] MEDS: MULTIVITAMINS/MINERALS THERAP 1 TAB PO SCH (07:29)
[2022-12-05] MEDS: risperiDONE 3 MG TAB PO SCH ×2 (07:30→21:06)
[2022-12-05] MEDS: NICOTINE 21MG/24HR 1 EA TRANSDERMAL TD SCH (07:31)
[2022-12-05] MEDS: LORazepam 2 MG TAB PO PRN (10:56)
[2022-12-05 18:48] VITALS: BP 139/80; TEMP 97.3; O2SAT 100
[2022-12-05] MEDS: traZODone 100 MG TAB PO SCH (21:06)
[2022-12-06 06:14] VITALS: BP 127/73; TEMP 96.7; O2SAT 99
[2022-12-06] MEDS: amLODIPine 5 MG TAB PO SCH (08:11)
[2022-12-06] MEDS: risperiDONE 3 MG TAB PO SCH ×2 (08:11→21:30)
[2022-12-06] MEDS: MULTIVITAMINS/MINERALS THERAP 1 TAB PO SCH (08:11)
[2022-12-06] MEDS: FLUoxetine 20MG CAP PO SCH (08:11)
[2022-12-06] MEDS: NICOTINE 21MG/24HR 1 EA TRANSDERMAL TD SCH (08:12)
[2022-12-06] MEDS: DOCUSATE SODIUM 100MG CAPSULE PO PRN (09:07)
[2022-12-06] MEDS: ACETAMINOPHEN TAB 650MG DOSE (2X325MG) PO PRN (09:25)
[2022-12-06] MEDS: LORazepam 2 MG TAB PO PRN (15:46)
[2022-12-06 18:41] VITALS: BP 143/84; TEMP 97.5; O2SAT 100
[2022-12-06] MEDS: traZODone 100 MG TAB PO SCH (21:29)
[2022-12-07 07:06] VITALS: BP 133/60; TEMP 97.4; O2SAT 98
[2022-12-07] MEDS: DOCUSATE SODIUM 100MG CAPSULE PO PRN (07:45)
[2022-12-07] MEDS: FLUoxetine 20MG CAP PO SCH (07:45)
[2022-12-07] MEDS: MULTIVITAMINS/MINERALS THERAP 1 TAB PO SCH (07:45)
[2022-12-07] MEDS: amLODIPine 5 MG TAB PO SCH (07:46)
[2022-12-07] MEDS: risperiDONE 3 MG TAB PO SCH ×2 (07:46→21:00)
[2022-12-07] MEDS: NICOTINE 21MG/24HR 1 EA TRANSDERMAL TD SCH (07:48)
[2022-12-07] MEDS: LORazepam 2 MG TAB PO PRN (18:02)
[2022-12-07] MEDS: diphenhydrAMINE 25MG CAP PO PRN (18:30)
[2022-12-07 18:40] VITALS: BP 142/87; TEMP 96.4; O2SAT 99
[2022-12-07] MEDS: traZODone 100 MG TAB PO SCH (22:01)
[2022-12-08 06:41] VITALS: TEMP 96.8; O2SAT 98
[2022-12-08] MEDS: FLUoxetine 20MG CAP PO SCH (08:03)
[2022-12-08] MEDS: MULTIVITAMINS/MINERALS THERAP 1 TAB PO SCH (08:03)
[2022-12-08] MEDS: risperiDONE 3 MG TAB PO SCH ×2 (08:03→20:07)
[2022-12-08] MEDS: amLODIPine 5 MG TAB PO SCH (08:03)
[2022-12-08] MEDS: NICOTINE 21MG/24HR 1 EA TRANSDERMAL TD SCH (08:04)
[2022-12-08] MEDS ORDERED: risperiDONE LONG-ACTING 37.5MG 2ML INJ IM SCH (09:00)
[2022-12-08] MEDS ORDERED: LORazepam 2 MG TAB PO PRN (12:15)
[2022-12-08] MEDS: DOCUSATE SODIUM 100MG CAPSULE PO PRN ×2 (12:26→21:08)
[2022-12-08] MEDS: traZODone 100 MG TAB PO SCH (20:07)
[2022-12-09 06:46] VITALS: BP 114/69; TEMP 96.4; O2SAT 100
[2022-12-09 08:04] VITALS: BP 133/68
[2022-12-09] MEDS: risperiDONE 3 MG TAB PO SCH ×2 (08:05→20:16)
[2022-12-09] MEDS: buPROPion **XL** TABLET 150MG (WELLBUTRIN XL) PO SCH (08:06)
[2022-12-09] MEDS: MULTIVITAMINS/MINERALS THERAP 1 TAB PO SCH (08:06)
[2022-12-09] MEDS: FLUoxetine 20MG CAP PO SCH (08:06)
[2022-12-09] MEDS: amLODIPine 5 MG TAB PO SCH (08:06)
[2022-12-09] MEDS: NICOTINE 21MG/24HR 1 EA TRANSDERMAL TD SCH (08:07)
[2022-12-09] MEDS: DOCUSATE SODIUM 100MG CAPSULE PO PRN (12:56)
[2022-12-09 19:13] VITALS: BP 136/88; TEMP 97.6
[2022-12-09] MEDS: MOM 30ML SUSPENSION UDC PO PRN (19:39)
[2022-12-09] MEDS: traZODone 100 MG TAB PO SCH (20:16)
[2022-12-09] MEDS: ACETAMINOPHEN TAB 650MG DOSE (2X325MG) PO PRN (20:16)
[2022-12-09] MEDS ORDERED: MIRALAX *UNIT DOSE* 17GM PACKET PO PRN (21:35)
[2022-12-10 06:57] VITALS: BP 132/76; TEMP 97.3; O2SAT 96
[2022-12-10] MEDS: NICOTINE 21MG/24HR 1 EA TRANSDERMAL TD SCH (08:19)
[2022-12-10] MEDS: MULTIVITAMINS/MINERALS THERAP 1 TAB PO SCH (08:21)
[2022-12-10 08:22] VITALS: BP 100/51
[2022-12-10] MEDS: buPROPion **XL** TABLET 150MG (WELLBUTRIN XL) PO SCH (08:23)
[2022-12-10] MEDS: FLUoxetine 20MG CAP PO SCH (08:23)
[2022-12-10] MEDS: risperiDONE 3 MG TAB PO SCH ×2 (08:23→20:28)
[2022-12-10] MEDS: amLODIPine 5 MG TAB PO SCH (09:00)
[2022-12-10 18:44] VITALS: BP 145/83; TEMP 97.6
[2022-12-10] MEDS: traZODone 100 MG TAB PO SCH (20:28)
[2022-12-11] MEDS: ACETAMINOPHEN TAB 650MG DOSE (2X325MG) PO PRN (03:36)
[2022-12-11 06:05] VITALS: BP 131/77; TEMP 97.3; O2SAT 97
[2022-12-11 08:13] VITALS: BP 141/76
[2022-12-11 08:15] VITALS: BP 141/76
[2022-12-11] MEDS: risperiDONE 3 MG TAB PO SCH (08:15)
[2022-12-11] MEDS: buPROPion **XL** TABLET 150MG (WELLBUTRIN XL) PO SCH (08:15)
[2022-12-11] MEDS: amLODIPine 5 MG TAB PO SCH (08:15)
[2022-12-11] MEDS: FLUoxetine 20MG CAP PO SCH (08:16)
[2022-12-11] MEDS: MULTIVITAMINS/MINERALS THERAP 1 TAB PO SCH (08:16)
[2022-12-11] MEDS: NICOTINE 21MG/24HR 1 EA TRANSDERMAL TD SCH (08:18)
[2022-12-11] MEDS ORDERED: FLUO20CA22 PO (09:32)
[2022-12-11] MEDS ORDERED: RISP37INJ IM (09:32)
[2022-12-11] MEDS ORDERED: AMLO1TAB24 PO (09:32)
[2022-12-11] MEDS ORDERED: TRAZ-257 PO (09:32)
[2022-12-11] MEDS ORDERED: NICO21PAT TD (09:32)
[2022-12-11] MEDS ORDERED: BUPR150T12 PO (09:32)
[2022-12-11] MEDS ORDERED: RISP3TAB PO (09:32)
[2022-12-15] MEDS ORDERED: risperiDONE LONG-ACTING 37.5MG 2ML INJ IM SCH (09:00)
== END 2022-12-11 10:55 | disposition home or self-care (01) | DRG 885 ==
LOC: M ED 13:45 → M ED INP 12-02 13:11 → M PSY 12-02 14:50
PROVIDERS: ADMIT Student in an Organized Health Care Education/Training Program; ATTEND Student in an Organized Health Care Education/Training Program
DX: F25.0 Schizoaffective disorder, bipolar type (principal); R45.851 Suicidal ideations; Z59.00 Homelessness unspecified; F17.210 Nicotine dependence, cigarettes, uncomplicated; M79.7 Fibromyalgia; K42.9 Umbilical hernia without obstruction or gangrene; E73.9 Lactose intolerance, unspecified; I10 Essential (primary) hypertension; G47.33 Obstructive sleep apnea (adult) (pediatric); Z88.0 Allergy status to penicillin; Z98.84 Bariatric surgery status; Z56.0 Unemployment, unspecified; Z79.899 Other long term (current) drug therapy; Z88.6 Allergy status to analgesic agent; Z91.040 Latex allergy status

== ENCOUNTER → 2023-10-22 | Outpatient (REF) | payer MEDICARE, MEDICAID ==
[~2023-10-22] MED LIST changes: +AMLO1TAB24 PO; +BUPR150T12 PO; -CELE1CAP7 PO; +CELE1CAP99 PO; +FLUO-365 PO; +FLUO1TAB3 PO; +HYDR-3363 PO; +NICO21PAT TD; +POTA99CA2 PO; +RISP25INJ IM; +RISP37INJ IM; +RISP3TAB PO; +TRAZ-257 PO
[2023-10-22 13:39] LABS: APPEARANCE, URINE CLEAR (CLEAR); BACTERIA, URINE AUTO NEGATIVE (NEGATIVE); BILIRUBIN, URINE AUTO NEGATIVE (NEGATIVE); BLOOD, URINE BLOOD NEGATIVE (NEGATIVE); COLOR, URINE YELLOW (YELLOW); GLUCOSE, URINE (UA) AUTO NEGATIVE (NEGATIVE); KETONE, URINE AUTO NEGATIVE (NEGATIVE); LEUKOCYTE ESTERASE, URINE AUTO NEGATIVE (NEGATIVE); NITRITE, URINE AUTO NEGATIVE (NEGATIVE); PROTEIN, URINE AUTO NEGATIVE (NEGATIVE); RBC, URINE AUTO 0 /HPF (0-3); SQUAMOUS EPITHELIAL CELL UR AU 1 /HPF (0-6); UROBILINOGEN, URINE AUTO 0.2 mg/dL (0.0-2.0); WBC, URINE AUTO 1 /HPF (0-3)
[2023-10-22 13:46] LABS: URINE PREG TEST NEGATIVE (NEGATIVE)
== END ==
LOC: M LAB REF 12:08
PROVIDERS: ATTEND Physician Assistant Medical
DX: N39.0 Urinary tract infection, site not specified (principal)

== ENCOUNTER → 2024-02-04 | Outpatient (REF) | payer MEDICARE, MEDICAID ==
[2024-02-04 18:55] LABS: BASO # 0.1 10^3/uL (0.0-0.2); BASO % 1.1 % (0.0-1.0); EOS # 0.3 10^3/uL (0.0-0.5); EOS % 5.1 % (0.0-3.0); HEMATOCRIT 27.1 % (36.0-47.0); HEMOGLOBIN 7.4 g/dl (12.0-15.5); LYMPH # 1.2 10^3/uL (1.5-5.0); LYMPH % 21.8 % (24.0-44.0); MEAN CORPUSCULAR HEMOGLOBIN 19.6 pg (27.0-33.0); MEAN CORPUSCULAR HGB CONC 27.3 g/dl (32.0-36.5); MEAN CORPUSCULAR VOLUME 71.7 fl (80.0-96.0); MONO # 0.4 10^3/uL (0.0-0.8); MONO % 7.7 % (2.0-8.0); NEUTROPHILS # 3.5 10^3/uL (1.5-8.5); NEUTROPHILS % 64.1 % (36.0-66.0); PLATELET COUNT, AUTOMATED 177 10^3/uL (150-450); RED BLOOD COUNT 3.78 10^6/uL (4.00-5.40); WHITE BLOOD COUNT 5.5 10^3/uL (4.0-10.0)
[2024-02-04 18:56] LABS: THYROID STIMULATING HORMONE 0.827 uIU/ML (0.55-4.78)
[2024-02-04 18:57] LABS: VITAMIN B12 LEVEL 280 PG/ML (211-911)
[2024-02-04 19:35] LABS: HEPATITIS C VIRUS ABY INDEX < 0.02 INDEX (<0.8)
[2024-02-04 19:44] LABS: FOLATE 16.9 NG/ML (>5.4)
== END ==
LOC: M LAB REF 17:03
PROVIDERS: ATTEND Nurse Practitioner Family
DX: R51.9 Headache, unspecified (principal); R00.1 Bradycardia, unspecified; Z11.3 Encounter for screening for infections with a predominantly sexual mode of transmission; Z72.89 Other problems related to lifestyle

== ENCOUNTER → 2024-03-22 | Outpatient (REF) | payer MEDICARE, MEDICAID ==
[2024-03-23 12:12] LABS: BASO # 0.1 10^3/uL (0.0-0.2); BASO % 1.1 % (0.0-1.0); EOS # 0.2 10^3/uL (0.0-0.5); EOS % 3.3 % (0.0-3.0); HEMATOCRIT 27.3 % (36.0-47.0); HEMOGLOBIN 7.6 g/dl (12.0-15.5); LYMPH # 1.7 10^3/uL (1.5-5.0); LYMPH % 38.4 % (24.0-44.0); MEAN CORPUSCULAR HEMOGLOBIN 19.1 pg (27.0-33.0); MEAN CORPUSCULAR HGB CONC 27.8 g/dl (32.0-36.5); MEAN CORPUSCULAR VOLUME 68.6 fl (80.0-96.0); MONO # 0.3 10^3/uL (0.0-0.8); MONO % 7.6 % (2.0-8.0); NEUTROPHILS # 2.2 10^3/uL (1.5-8.5); NEUTROPHILS % 49.2 % (36.0-66.0); PLATELET COUNT, AUTOMATED 238 10^3/uL (150-450); RED BLOOD COUNT 3.98 10^6/uL (4.00-5.40); WHITE BLOOD COUNT 4.5 10^3/uL (4.0-10.0)
[2024-03-23 12:24] LABS: PERCENT SATURATION 2.4 % (13.2-45.0)
[2024-03-23 12:27] LABS: FERRITIN 2.5 NG/ML (7.3-270.7)
== END ==
LOC: M LAB REF 11:36
PROVIDERS: ATTEND Nurse Practitioner Family
DX: D64.9 Anemia, unspecified (principal)

== ENCOUNTER → 2024-03-28 | Outpatient (REF) | payer MEDICARE, MEDICAID ==
[2024-03-28 19:34] LABS: APPEARANCE, URINE HAZY (CLEAR); BACTERIA, URINE AUTO NEGATIVE (NEGATIVE); BILIRUBIN, URINE AUTO NEGATIVE (NEGATIVE); BLOOD, URINE BLOOD NEGATIVE (NEGATIVE); COLOR, URINE YELLOW (YELLOW); GLUCOSE, URINE (UA) AUTO NEGATIVE (NEGATIVE); KETONE, URINE AUTO NEGATIVE (NEGATIVE); LEUKOCYTE ESTERASE, URINE AUTO NEGATIVE (NEGATIVE); MUCUS, URINE SMALL (NEGATIVE); NITRITE, URINE AUTO NEGATIVE (NEGATIVE); PROTEIN, URINE AUTO NEGATIVE (NEGATIVE); RBC, URINE AUTO 1 /HPF (0-3); SPECIFIC GRAVITY URINE AUTO 1.012 (1.002-1.035); SQUAMOUS EPITHELIAL CELL UR AU 4 /HPF (0-6); UROBILINOGEN, URINE AUTO 0.2 mg/dL (0.0-2.0); WBC, URINE AUTO 2 /HPF (0-3)
== END ==
LOC: M LAB REF 16:20
PROVIDERS: ATTEND Physician Assistant Medical
DX: N39.0 Urinary tract infection, site not specified (principal)

== ENCOUNTER → 2024-04-11 | Outpatient (CLI) | payer MEDICARE, MEDICAID ==
[2024-04-11 14:12] LABS: EOS # 0.1 10^3/uL (0.0-0.5); EOS % 2.4 % (0.0-3.0); HEMATOCRIT 26.1 % (36.0-47.0); HEMOGLOBIN 7.2 g/dl (12.0-15.5); LYMPH # 1.1 10^3/uL (1.5-5.0); LYMPH % 27.3 % (24.0-44.0); MEAN CORPUSCULAR HEMOGLOBIN 18.8 pg (27.0-33.0); MEAN CORPUSCULAR HGB CONC 27.6 g/dl (32.0-36.5); MONO # 0.5 10^3/uL (0.0-0.8); MONO % 10.8 % (2.0-8.0); NEUTROPHILS # 2.4 10^3/uL (1.5-8.5); PLATELET COUNT, AUTOMATED 179 10^3/uL (150-450); RED BLOOD COUNT 3.84 10^6/uL (4.00-5.40); WHITE BLOOD COUNT 4.2 10^3/uL (4.0-10.0)
== END ==
LOC: M PLALAB 10:33
PROVIDERS: ATTEND Internal Medicine Hematology
DX: Z98.84 Bariatric surgery status (principal); D50.9 Iron deficiency anemia, unspecified

== ENCOUNTER → 2024-04-12 | Outpatient (REF) | payer MEDICARE, MEDICAID | LOC: M SFHCPLAZ 11:22 | PROVIDERS: ATTEND Internal Medicine Hematology | DX: D50.9 Iron deficiency anemia, unspecified (principal) ==

== ENCOUNTER 2024-04-29 14:15 | Outpatient (CLI) | payer MEDICARE, MEDICAID ==
[~2024-04-29] VITALS: Ht 157.5 cm; Wt 92.0 kg
[~2024-04-29 14:15] MED LIST changes: +ALBUTEROL SULFATE 2.5MG/0.5ML INH NEB SOLN INH PRN; +EPINEPHrine INJ 1 MG/ML 1ML AMP IM PRN; +diphenhydrAMINE 50MG/ML VIAL IV PRN; +methylPREDNISolone 125MG 2ML VIAL IV PRN
[2024-04-29 14:40] VITALS: BP 146/65; O2SAT 100
[2024-04-29] MEDS: IRON SUCROSE 300 MG in NS 250 ML IV ONE (15:41)
[2024-04-29 17:26] VITALS: BP 141/71; O2SAT 99
== END 2024-04-29 17:30 ==
LOC: M INFU 14:15
PROVIDERS: ATTEND Internal Medicine Hematology
DX: D50.9 Iron deficiency anemia, unspecified (principal); Z88.1 Allergy status to other antibiotic agents; Z88.8 Allergy status to other drugs, medicaments and biological substances; Z91.040 Latex allergy status
CPT/HCPCS: 96365; 96366; J1756

== ENCOUNTER 2024-05-06 13:11 | Outpatient (CLI) | payer MEDICARE, MEDICAID ==
[~2024-05-06] VITALS: Ht 157.5 cm; Wt 95.0 kg
[2024-05-06 13:15] VITALS: BP 119/68; O2SAT 99
[2024-05-06] MEDS: IRON SUCROSE 300 MG in NS 250 ML IV ONE (13:39)
[2024-05-06 15:20] VITALS: BP 116/57; O2SAT 98
== END 2024-05-06 15:15 ==
LOC: M INFU 13:11
PROVIDERS: ATTEND Internal Medicine Hematology
DX: D50.9 Iron deficiency anemia, unspecified (principal); Z88.1 Allergy status to other antibiotic agents; Z88.8 Allergy status to other drugs, medicaments and biological substances; Z91.040 Latex allergy status
CPT/HCPCS: 96365; 96366; J1756

== ENCOUNTER 2024-05-13 14:26 | Outpatient (CLI) | payer MEDICARE, MEDICAID ==
[~2024-05-13] VITALS: Ht 157.5 cm; Wt 95.0 kg
[2024-05-13 14:53] VITALS: BP 145/68; O2SAT 97
[2024-05-13] MEDS: IRON SUCROSE 300 MG in NS 250 ML IV ONE (15:01)
[2024-05-13 16:46] VITALS: BP 137/67; O2SAT 100
== END 2024-05-13 16:45 | disposition home or self-care (01) ==
LOC: M INFU 14:26
PROVIDERS: ATTEND Internal Medicine Hematology
DX: D50.9 Iron deficiency anemia, unspecified (principal); Z88.1 Allergy status to other antibiotic agents; Z88.8 Allergy status to other drugs, medicaments and biological substances; Z91.040 Latex allergy status
CPT/HCPCS: 96365; 96366; J1756

== ENCOUNTER → 2024-05-20 | Outpatient (CLI) | payer MEDICARE, MEDICAID ==
[~2024-05-20] VITALS: Ht 157.5 cm; Wt 95.2 kg
[2024-05-20 15:00] VITALS: BP 112/57; O2SAT 98
[2024-05-20] MEDS: IRON SUCROSE 300 MG in NS 250 ML OVER 90 MIN. IV ONE (15:45)
[2024-05-20 17:17] VITALS: BP 142/72; O2SAT 98
== END ==
LOC: M INFU 14:42
PROVIDERS: ATTEND Internal Medicine Hematology
DX: D50.9 Iron deficiency anemia, unspecified (principal); Z88.1 Allergy status to other antibiotic agents; Z88.8 Allergy status to other drugs, medicaments and biological substances; Z91.040 Latex allergy status; Z91.011 Allergy to milk products
CPT/HCPCS: 96365; 96366; J1756

== ENCOUNTER → 2024-05-24 | Outpatient (CLI) | payer MEDICARE, MEDICAID ==
[~2024-05-24] MED LIST changes: -ALBUTEROL SULFATE 2.5MG/0.5ML INH NEB SOLN INH PRN; -EPINEPHrine INJ 1 MG/ML 1ML AMP IM PRN; -diphenhydrAMINE 50MG/ML VIAL IV PRN; -methylPREDNISolone 125MG 2ML VIAL IV PRN
[2024-05-24 11:14] LABS: BASO # 0.1 10^3/uL (0.0-0.2); BASO % 1.6 % (0.0-1.0); EOS # 0.2 10^3/uL (0.0-0.5); EOS % 4.2 % (0.0-3.0); HEMATOCRIT 33.1 % (36.0-47.0); HEMOGLOBIN 9.6 g/dl (12.0-15.5); LYMPH # 1.3 10^3/uL (1.5-5.0); LYMPH % 34.1 % (24.0-44.0); MEAN CORPUSCULAR VOLUME 75.9 fl (80.0-96.0); MONO # 0.3 10^3/uL (0.0-0.8); MONO % 7.8 % (2.0-8.0); NEUTROPHILS % 51.8 % (36.0-66.0); PLATELET COUNT, AUTOMATED 219 10^3/uL (150-450); RED BLOOD COUNT 4.36 10^6/uL (4.00-5.40); WHITE BLOOD COUNT 3.8 10^3/uL (4.0-10.0)
[2024-05-24 11:18] LABS: FERRITIN 85.9 NG/ML (7.3-270.7)
== END ==
LOC: M LAB 10:28
PROVIDERS: ATTEND Internal Medicine Hematology
DX: D50.8 Other iron deficiency anemias (principal); R79.89 Other specified abnormal findings of blood chemistry

== ENCOUNTER → 2024-06-09 | Outpatient (CLI) | payer MEDICARE, MEDICAID ==
[2024-06-09 15:37] LABS: PHOSPHORUS LEVEL 4.1 MG/DL (2.5-4.9)
[2024-06-09 15:39] LABS: FERRITIN 12.3 NG/ML (7.3-270.7)
[2024-06-09 16:50] LABS: BASO # 0.1 10^3/uL (0.0-0.2); EOS # 0.4 10^3/uL (0.0-0.5); EOS % 6.3 % (0.0-3.0); HEMATOCRIT 35.2 % (36.0-47.0); HEMOGLOBIN 10.2 g/dl (12.0-15.5); LYMPH # 1.7 10^3/uL (1.5-5.0); LYMPH % 29.6 % (24.0-44.0); MEAN CORPUSCULAR HEMOGLOBIN 23.3 pg (27.0-33.0); MEAN CORPUSCULAR VOLUME 80.5 fl (80.0-96.0); MONO # 0.4 10^3/uL (0.0-0.8); MONO % 7.4 % (2.0-8.0); NEUTROPHILS # 3.2 10^3/uL (1.5-8.5); NEUTROPHILS % 55.4 % (36.0-66.0); PLATELET COUNT, AUTOMATED 204 10^3/uL (150-450); RED BLOOD COUNT 4.37 10^6/uL (4.00-5.40); WHITE BLOOD COUNT 5.9 10^3/uL (4.0-10.0)
[2024-06-09 16:58] LABS: ANISOCYTOSIS 3+
[2024-06-09 16:59] LABS: MICROCYTOSIS 2+
[2024-06-09 17:08] LABS: HYPOCHROMASIA 2+; PLATELET CLUMPS SMALL AMT; PLATELET ESTIMATE NORMAL (NORMAL); POIKILOCYTOSIS 1+
== END ==
LOC: M LAB 14:09
PROVIDERS: ATTEND Internal Medicine Hematology
DX: D50.9 Iron deficiency anemia, unspecified (principal)

== ENCOUNTER 2024-06-20 14:00 | Outpatient (CLI) | payer MEDICARE, MEDICAID ==
[~2024-06-20] VITALS: Ht 157.5 cm; Wt 99.7 kg
[2024-06-20 14:00] VITALS: BP 139/65; O2SAT 100
[~2024-06-20 14:00] MED LIST changes: +ALBUTEROL SULFATE 2.5MG/0.5ML INH NEB SOLN INH PRN; +EPINEPHrine INJ 1 MG/ML 1ML AMP IM PRN; +diphenhydrAMINE 50MG/ML VIAL IV PRN; +methylPREDNISolone 125MG 2ML VIAL IV PRN
[2024-06-20] MEDS: IRON SUCROSE 300 MG in NS 250 ML OVER 90 MIN. IV ONE (14:16)
[2024-06-20 15:55] VITALS: BP 140/88; O2SAT 97
== END 2024-06-20 15:55 ==
LOC: M INFU 14:00
PROVIDERS: ATTEND Internal Medicine Hematology
DX: D50.8 Other iron deficiency anemias (principal); Z88.1 Allergy status to other antibiotic agents; Z88.6 Allergy status to analgesic agent; Z91.040 Latex allergy status; Z91.011 Allergy to milk products
CPT/HCPCS: 96365; 96366; J1756

== ENCOUNTER 2024-07-04 13:35 | Outpatient (CLI) | payer MEDICAID, MEDICARE ==
[~2024-07-04] VITALS: Ht 157.5 cm; Wt 95.5 kg
[2024-07-04 13:35] VITALS: BP 148/71; O2SAT 98
[2024-07-04] MEDS: IRON SUCROSE 300 MG in NS 250 ML OVER 90 MIN. IV ONE (13:44)
[2024-07-04 15:34] VITALS: BP 140/80; O2SAT 63
== END 2024-07-04 15:35 ==
LOC: M INFU 13:35
PROVIDERS: ATTEND Internal Medicine Hematology
DX: D50.8 Other iron deficiency anemias (principal); Z88.1 Allergy status to other antibiotic agents; Z88.6 Allergy status to analgesic agent; Z91.040 Latex allergy status; Z91.011 Allergy to milk products
CPT/HCPCS: 96365; 96366; J1756

== ENCOUNTER 2024-07-18 14:00 | Outpatient (CLI) | payer MEDICARE, MEDICAID ==
[~2024-07-18] VITALS: Ht 157.5 cm; Wt 103.2 kg
[2024-07-18 14:00] VITALS: BP 137/58; O2SAT 96
[~2024-07-18 14:00] MED LIST changes: +ACET650T15 PO; +BUSP5TA; +FERR325T19
[2024-07-18] MEDS: IRON SUCROSE 300 MG in NS 250 ML OVER 90 MIN. IV ONE (14:07)
[2024-07-18 15:46] VITALS: BP 129/73; O2SAT 97
== END 2024-07-18 15:45 ==
LOC: M INFU 14:00
PROVIDERS: ATTEND Internal Medicine Hematology
DX: D50.8 Other iron deficiency anemias (principal); Z88.1 Allergy status to other antibiotic agents; Z88.6 Allergy status to analgesic agent; Z88.8 Allergy status to other drugs, medicaments and biological substances; Z91.040 Latex allergy status; Z79.1 Long term (current) use of non-steroidal anti-inflammatories (NSAID); Z79.899 Other long term (current) drug therapy
CPT/HCPCS: 96365; 96366; J1756

== ENCOUNTER → 2024-08-04 | Outpatient (REF) | payer MEDICARE, MEDICAID ==
[~2024-08-04] MED LIST changes: -ALBUTEROL SULFATE 2.5MG/0.5ML INH NEB SOLN INH PRN; -EPINEPHrine INJ 1 MG/ML 1ML AMP IM PRN; -diphenhydrAMINE 50MG/ML VIAL IV PRN; -methylPREDNISolone 125MG 2ML VIAL IV PRN
[2024-08-04 19:19] LABS: CHOLESTEROL RISK RATIO 1.87 (<5); HDL CHOLESTEROL 79.1 MG/DL (>40); LDL CHOLESTEROL 56.5 MG/DL (<100); NON-HDL-C 68.9 MG/DL
[2024-08-04 19:22] LABS: THYROID STIMULATING HORMONE 0.815 uIU/ML (0.55-4.78)
[2024-08-04 19:40] LABS: HEMOGLOBIN A1c 4.2 % (4.0-6.0)
== END ==
LOC: M LAB REF 16:45
PROVIDERS: ATTEND Nurse Practitioner Family
DX: E66.812 Obesity, class 2 (principal); Z68.36 Body mass index [BMI] 36.0-36.9, adult; Z79.899 Other long term (current) drug therapy

== ENCOUNTER → 2024-09-14 | Outpatient (REF) | payer MEDICARE, MEDICAID ==
[~2024-09-14] MED LIST changes: -PHEN-239 PO; +PHEN37.511 PO; +VITAD400CA FT
[2024-09-14 17:38] LABS: APPEARANCE, URINE HAZY (CLEAR); BACTERIA, URINE AUTO 1+ (NEGATIVE); BILIRUBIN, URINE AUTO NEGATIVE (NEGATIVE); BLOOD, URINE BLOOD 3+ (NEGATIVE); COLOR, URINE YELLOW (YELLOW); GLUCOSE, URINE (UA) AUTO NEGATIVE (NEGATIVE); KETONE, URINE AUTO NEGATIVE (NEGATIVE); LEUKOCYTE ESTERASE, URINE AUTO NEGATIVE (NEGATIVE); MUCUS, URINE SMALL (NEGATIVE); NITRITE, URINE AUTO NEGATIVE (NEGATIVE); PROTEIN, URINE AUTO 1+ mg/dL (NEGATIVE); RBC, URINE AUTO 8 /HPF (0-3); SPECIFIC GRAVITY URINE AUTO 1.023 (1.002-1.035); SQUAMOUS EPITHELIAL CELL UR AU 3 /HPF (0-6); UROBILINOGEN, URINE AUTO 0.2 mg/dL (0.0-2.0); WBC, URINE AUTO 1 /HPF (0-3)
== END ==
LOC: M LAB REF 17:05
PROVIDERS: ATTEND Physician Assistant
DX: N39.0 Urinary tract infection, site not specified (principal)

== ENCOUNTER → 2024-12-10 | Outpatient (CLI) | payer MEDICAID, MEDICARE ==
[~2024-12-10] MED LIST changes: +ACET-1515 PO; -ACET650T15 PO
== END ==
LOC: M RAD 15:07
PROVIDERS: ATTEND Nurse Practitioner
DX: G43.011 Migraine without aura, intractable, with status migrainosus (principal)

== ENCOUNTER 2024-12-23 17:44 | Observation (INO) | payer MEDICARE, MEDICAID ==
[~2024-12-23] VITALS: Ht 157.5 cm; Wt 101.4 kg
[2024-12-23] MEDS ORDERED: ATOG60TA PO (17:56)
[2024-12-23] MEDS ORDERED: BUSP10TA PO (17:56)
[2024-12-23] MEDS ORDERED: UBRO100T PO (18:03)
[2024-12-23] MEDS ORDERED: OLAN1TAB70 PO (18:03)
[2024-12-23] MEDS ORDERED: ISOVUE-370 76% 100 ML VIAL As Ordered ONE (18:24)
[2024-12-23 18:40] LABS: BASO # 0.0 10^3/uL (0.0-0.2); BASO % 0.5 % (0.0-1.0); EOS # 0.2 10^3/uL (0.0-0.5); EOS % 2.4 % (0.0-3.0); LYMPH # 1.9 10^3/uL (1.5-5.0); LYMPH % 30.2 % (24.0-44.0); MONO # 0.4 10^3/uL (0.0-0.8); MONO % 6.7 % (2.0-8.0); NEUTROPHILS # 3.8 10^3/uL (1.5-8.5); NEUTROPHILS % 59.9 % (36.0-66.0); PLATELET COUNT, AUTOMATED 146 10^3/uL (150-450)
[2024-12-23 18:59] LABS: ALT/SGPT 14.0 U/L (7.0-40); AST/SGOT 30.0 U/L (<34)
[2024-12-23] MEDS: ONDANSETRON 4MG 2ML VIAL IV ONE (20:00)
[2024-12-23] MEDS: MORPHINE 4 MG/ML 1 ML VIAL IV PRN (20:01)
[2024-12-23] MEDS: HALOPERIDOL LACTATE 5 MG/ML VIAL IV ONE (21:58)
[2024-12-23] MEDS ORDERED: HOME MED LIST COMPLETE! XX SCH (22:00)
[2024-12-24] MEDS: LR 1,000 ML IV SCH ×2 (00:02→11:58)
[2024-12-24 00:11] VITALS: BP 157/67; TEMP 97.9; O2SAT 98
[2024-12-24 03:51] VITALS: BP 154/68; TEMP 98.2; O2SAT 94
[2024-12-24 04:50] LABS: AMPHETAMINES LEVEL URINE POSITIVE (NEGATIVE); BARBITURATES URINE NEGATIVE (NEGATIVE); BENZODIAZEPINES URINE NEGATIVE (NEGATIVE); CANNABINOIDS URINE POSITIVE (NEGATIVE); COCAINE METABOLITE URINE NEGATIVE (NEGATIVE); METHADONE URINE NEGATIVE (NEGATIVE); OPIATES URINE POSITIVE (NEGATIVE); PHENCYCLIDINE URINE NEGATIVE (NEGATIVE)
[2024-12-24 06:55] LABS: PLATELET COUNT, AUTOMATED 126 10^3/uL (150-450)
[2024-12-24 07:51] LABS: ALT/SGPT 12 U/L (7.0-40); AST/SGOT 14 U/L (<34); CALCIUM LEVEL 8.7 MG/DL (8.5-10.1); CARBON DIOXIDE LEVEL 22 MMOL/L (20-31); CHLORIDE LEVEL 108 MMOL/L (98-107); CREATININE FOR GFR 0.51 MG/DL (0.55-1.30); GLOMERULAR FILTRATION RATE > 90.0 (>60); MAGNESIUM LEVEL 1.7 MG/DL (1.8-2.4); POTASSIUM SERUM 4.2 MMOL/L (3.5-5.1); SODIUM LEVEL 140 MMOL/L (136-145)
[2024-12-24] MEDS: ENOXAPARIN 40 MG/0.4 ML SYRINGE (J1650 PER 10MG) SC SCH (09:00)
[2024-12-24] MEDS: ALBUTEROL SULFATE 2.5 MG/0.5 ML INH CONCENTRATE NEB SOLN NEB PRN (09:29)
[2024-12-24] MEDS: PANTOPRAZOLE 40MG VIAL IV SCH (11:30)
[2024-12-24] MEDS: KETOROLAC 30 MG/ML 1 ML VIAL IV PRN (11:30)
[2024-12-24] MEDS: ONDANSETRON 4MG 2ML VIAL IV PRN (11:31)
[2024-12-24] MEDS: MORPHINE 2 MG/ML 1 ML VIAL IV PRN (11:58)
[2024-12-24] MEDS: MAG SULF 1GM/100ML (MAG RUN) 1 GM in IV 1 EA IV SCH (11:59)
[2024-12-24 12:07] LABS: KETONE, URINE AUTO RFX 1+ mg/dL (NEGATIVE); LEUKOCYTE ESTERASE UR AUTO RFX NEGATIVE (NEGATIVE); MUCUS, URINE RFX SMALL (NEGATIVE); NITRITE, URINE AUTO RFX NEGATIVE (NEGATIVE); RBC, URINE AUTO RFX 0 /HPF (0-3); SQUAM EPITHELIAL CELL UR AURFX 5 /HPF (0-6); URINE PREG TEST NEGATIVE (NEGATIVE); WBC, URINE AUTO RFX 1 /HPF (0-3)
[2024-12-24 12:10] VITALS: BP 141/76; TEMP 98.2; O2SAT 95
[2024-12-24] MEDS: OLANZapine 10 MG TAB PO SCH (20:00)
[2024-12-24 20:13] VITALS: BP 140/75; TEMP 98.2; O2SAT 96
[2024-12-25 03:56] VITALS: BP 128/66; TEMP 98.6; O2SAT 92
[2024-12-25] MEDS ORDERED: QULIPTA 60 MG PO SCH (09:00)
[2024-12-25 11:23] LABS: BASO # 0.0 10^3/uL (0.0-0.2); BASO % 0.2 % (0.0-1.0); EOS # 0.1 10^3/uL (0.0-0.5); EOS % 1.0 % (0.0-3.0); LYMPH # 1.0 10^3/uL (1.5-5.0); LYMPH % 12.3 % (24.0-44.0); MONO # 0.5 10^3/uL (0.0-0.8); MONO % 5.9 % (2.0-8.0); NEUTROPHILS # 6.7 10^3/uL (1.5-8.5); NEUTROPHILS % 80.2 % (36.0-66.0)
[2024-12-25 11:44] LABS: CALCIUM LEVEL 8.3 MG/DL (8.5-10.1); CARBON DIOXIDE LEVEL 24 MMOL/L (20-31); CHLORIDE LEVEL 110 MMOL/L (98-107); CREATININE FOR GFR 0.56 MG/DL (0.55-1.30); GLOMERULAR FILTRATION RATE > 90.0 (>60); POTASSIUM SERUM 4.1 MMOL/L (3.5-5.1); SODIUM LEVEL 141 MMOL/L (136-145)
[2024-12-25 11:52] LABS: PLATELET COUNT, AUTOMATED 94 10^3/uL (150-450)
[2024-12-25 12:00] VITALS: BP 141/84; TEMP 98.4; O2SAT 83
[2024-12-25 13:00] LABS: MAGNESIUM LEVEL 1.8 MG/DL (1.8-2.4)
[2024-12-25] MEDS: MORPHINE 2 MG/ML 1 ML VIAL IV PRN (13:31)
[2024-12-25] MEDS: IPRATROPIUM 0.5 MG/ALBUTEROL 2.5 MG INH SOL UD 3 ML NEB SCH (16:43)
[2024-12-25] MEDS: cefTRIAXone SOD 2 GM in DEXTROSE 5% (D5W) ADV/MINI-BAG 50 ML IV SCH (20:20)
[2024-12-25] MEDS: AZITHROMYCIN 250 MG TABLET PO SCH (20:20)
[2024-12-25 20:21] VITALS: BP 160/86; TEMP 98.4; O2SAT 93
[2024-12-26 04:40] VITALS: BP 118/77; TEMP 98.1; O2SAT 93
[2024-12-26 06:38] LABS: BASO # 0.0 10^3/uL (0.0-0.2); BASO % 0.2 % (0.0-1.0); EOS # 0.0 10^3/uL (0.0-0.5); EOS % 0.0 % (0.0-3.0); LYMPH # 0.4 10^3/uL (1.5-5.0); LYMPH % 6.7 % (24.0-44.0); MONO # 0.2 10^3/uL (0.0-0.8); MONO % 3.1 % (2.0-8.0); NEUTROPHILS # 5.9 10^3/uL (1.5-8.5); NEUTROPHILS % 89.7 % (36.0-66.0); PLATELET COUNT, AUTOMATED 116 10^3/uL (150-450)
[2024-12-26 07:31] LABS: CALCIUM LEVEL 8.7 MG/DL (8.5-10.1); CARBON DIOXIDE LEVEL 21 MMOL/L (20-31); CHLORIDE LEVEL 111 MMOL/L (98-107); CREATININE FOR GFR 0.43 MG/DL (0.55-1.30); GLOMERULAR FILTRATION RATE > 90.0 (>60); POTASSIUM SERUM 4.5 MMOL/L (3.5-5.1); SODIUM LEVEL 141 MMOL/L (136-145)
[2024-12-26] MEDS: predniSONE 20 MG TAB PO SCH (08:40)
[2024-12-26 11:52] VITALS: BP 150/92; TEMP 98.1; O2SAT 92
[2024-12-26] MEDS: ACETAMINOPHEN 325 MG TAB PO PRN (14:04)
[2024-12-26] MEDS: SIMETHICONE 80MG CHEW TAB PO PRN (14:27)
[2024-12-26 19:43] VITALS: BP 138/72; TEMP 97.9; O2SAT 99
[2024-12-27 04:25] VITALS: BP 111/51; TEMP 97.9; O2SAT 95
[2024-12-27 06:24] LABS: BASO # 0.0 10^3/uL (0.0-0.2); BASO % 0.2 % (0.0-1.0); EOS # 0.0 10^3/uL (0.0-0.5); EOS % 0.2 % (0.0-3.0); LYMPH # 1.3 10^3/uL (1.5-5.0); LYMPH % 16.2 % (24.0-44.0); MONO # 0.6 10^3/uL (0.0-0.8); MONO % 7.0 % (2.0-8.0); NEUTROPHILS # 6.3 10^3/uL (1.5-8.5); NEUTROPHILS % 75.9 % (36.0-66.0); PLATELET COUNT, AUTOMATED 119 10^3/uL (150-450)
[2024-12-27 06:46] LABS: CALCIUM LEVEL 9.0 MG/DL (8.5-10.1); CARBON DIOXIDE LEVEL 25 MMOL/L (20-31); CHLORIDE LEVEL 113 MMOL/L (98-107); CREATININE FOR GFR 0.55 MG/DL (0.55-1.30); GLOMERULAR FILTRATION RATE > 90.0 (>60); POTASSIUM SERUM 3.5 MMOL/L (3.5-5.1); SODIUM LEVEL 147 MMOL/L (136-145)
[2024-12-27] MEDS ORDERED: CEFD1CAP9 PO (10:25)
[2024-12-27] MEDS ORDERED: TRAN1DIS4 TOP (10:25)
[2024-12-27] MEDS ORDERED: AZIT-12 PO (10:25)
[2024-12-27] MEDS ORDERED: SIME1CAP4 PO (10:55)
[2024-12-27] MEDS ORDERED: ACET-683 PO (10:55)
[2024-12-29 22:08] LABS: MYCOPLASMA PNEUMONIAE IGG 2.44 (<=0.90); MYCOPLASMA PNEUMONIAE IGM 73.0 U/mL (<770)
== END 2024-12-27 11:07 | disposition home or self-care (01) ==
LOC: EDBD 17:44 → M ED 17:44 → M ED INP 17:45 → M MSPAV 23:49
PROVIDERS: ADMIT Student in an Organized Health Care Education/Training Program; ATTEND General Practice
DX: R10.31 Right lower quadrant pain (principal); R11.2 Nausea with vomiting, unspecified; Z98.84 Bariatric surgery status; Z98.890 Other specified postprocedural states; F12.10 Cannabis abuse, uncomplicated; D72.829 Elevated white blood cell count, unspecified; K43.2 Incisional hernia without obstruction or gangrene; K56.7 Ileus, unspecified; J18.9 Pneumonia, unspecified organism; R21 Rash and other nonspecific skin eruption; J45.909 Unspecified asthma, uncomplicated; E83.42 Hypomagnesemia; F31.9 Bipolar disorder, unspecified; F60.3 Borderline personality disorder; G43.909 Migraine, unspecified, not intractable, without status migrainosus; G47.33 Obstructive sleep apnea (adult) (pediatric); I10 Essential (primary) hypertension; E66.01 Morbid (severe) obesity due to excess calories; F19.10 Other psychoactive substance abuse, uncomplicated; M79.7 Fibromyalgia; Z90.49 Acquired absence of other specified parts of digestive tract; Z90.89 Acquired absence of other organs; Z80.51 Family history of malignant neoplasm of kidney; Z80.42 Family history of malignant neoplasm of prostate; F17.210 Nicotine dependence, cigarettes, uncomplicated; Z79.899 Other long term (current) drug therapy; Z88.0 Allergy status to penicillin; Z88.8 Allergy status to other drugs, medicaments and biological substances; Z91.040 Latex allergy status; Z91.011 Allergy to milk products
CPT/HCPCS: 36415; 71045; 71275; 74177; 80047; 80048; 80053; 80076; 80307; 81001; 82607; 82728; 82746; 83550; 83605; 83690; 83735; 84145; 84703; 85025; 85027; 85049; 85055; 86738; 87040; 87070; 87205; 87449; 87486; 87581; 87633; 87641; 87798; 93005; 93041; 94640; 96361; 96365; 96372; 96375; 96376; 99285; G0378; J0696; J1630; J1650; J1885; J2405; J2470; J2919; J3475; J7512; Q9967

== ENCOUNTER → 2025-01-06 | Outpatient (REF) | payer MEDICARE, MEDICAID ==
[~2025-01-06] MED LIST changes: +ACET-683 PO; +ATOG60TA PO; +AZIT-12 PO; +CEFD1CAP9 PO; +OLAN1TAB70 PO; +SIME1CAP4 PO; +TRAN1DIS4 TOP; +UBRO100T PO
[2025-01-06 16:31] LABS: BASO # 0.1 10^3/uL (0.0-0.2); BASO % 0.7 % (0.0-1.0); EOS # 0.1 10^3/uL (0.0-0.5); EOS % 1.5 % (0.0-3.0); LYMPH # 2.1 10^3/uL (1.5-5.0); LYMPH % 27.8 % (24.0-44.0); MONO # 0.6 10^3/uL (0.0-0.8); MONO % 8.4 % (2.0-8.0); NEUTROPHILS # 4.6 10^3/uL (1.5-8.5); NEUTROPHILS % 61.1 % (36.0-66.0); PLATELET COUNT, AUTOMATED 252 10^3/uL (150-450)
[2025-01-06 16:43] LABS: CALCIUM LEVEL 9.5 MG/DL (8.5-10.1); CARBON DIOXIDE LEVEL 25 MMOL/L (20-31); CHLORIDE LEVEL 107 MMOL/L (98-107); CREATININE FOR GFR 0.66 MG/DL (0.55-1.30); GLOMERULAR FILTRATION RATE > 90.0 (>60); MAGNESIUM LEVEL 2.0 MG/DL (1.8-2.4); POTASSIUM SERUM 4.0 MMOL/L (3.5-5.1); SODIUM LEVEL 143 MMOL/L (136-145)
== END ==
LOC: M LAB REF 16:10
PROVIDERS: ATTEND Nurse Practitioner Family
DX: R11.10 Vomiting, unspecified (principal); R10.9 Unspecified abdominal pain; J45.20 Mild intermittent asthma, uncomplicated

== ENCOUNTER → 2025-01-19 | Outpatient (REF) | payer MEDICARE, MEDICAID ==
[2025-01-19 17:56] LABS: APPEARANCE, URINE CLEAR (CLEAR); BACTERIA, URINE AUTO NEGATIVE (NEGATIVE); BILIRUBIN, URINE AUTO NEGATIVE (NEGATIVE); BLOOD, URINE BLOOD NEGATIVE (NEGATIVE); GLUCOSE, URINE (UA) AUTO NEGATIVE (NEGATIVE); KETONE, URINE AUTO NEGATIVE (NEGATIVE); LEUKOCYTE ESTERASE, URINE AUTO NEGATIVE (NEGATIVE); NITRITE, URINE AUTO NEGATIVE (NEGATIVE); PROTEIN, URINE AUTO NEGATIVE (NEGATIVE); RBC, URINE AUTO 0 /HPF (0-3); SPECIFIC GRAVITY URINE AUTO 1.014 (1.002-1.035); SQUAMOUS EPITHELIAL CELL UR AU 2 /HPF (0-6); UROBILINOGEN, URINE AUTO 0.2 mg/dL (0.0-2.0); WBC, URINE AUTO 1 /HPF (0-3)
[2025-01-19 20:06] LABS: Trichomonas vaginalis (AMP) NOT DETECTED (NEGATIVE)
[2025-01-19 20:29] LABS: GC DNA AMPLIFICATION NEGATIVE (NEGATIVE)
== END ==
LOC: M LAB REF 17:12
PROVIDERS: ATTEND Physician Assistant
DX: Z20.09 Contact with and (suspected) exposure to other intestinal infectious diseases (principal); Z79.899 Other long term (current) drug therapy; Z11.3 Encounter for screening for infections with a predominantly sexual mode of transmission; Z72.89 Other problems related to lifestyle

== ENCOUNTER → 2025-01-20 | Outpatient (CLI) | payer MEDICARE, MEDICAID | LOC: M RAD 13:29 | PROVIDERS: ATTEND Nurse Practitioner Family | DX: J45.20 Mild intermittent asthma, uncomplicated (principal) ==